=== PATIENT | male | born 1950 | race Caucasian/White ===

== ENCOUNTER 2018-12-05 12:11 | Inpatient (IN) | payer MEDICARE, OTHER ==
[2018-12-05] VITALS (8 sets, daily range): BP systolic 90–110; BP diastolic 44–62
[~2018-12-05] VITALS: Ht 185.4 cm; Wt 85.5 kg
[2018-12-05 12:44] LABS: BASOPHILS % (AUTO) 0.1 % (0-1); EOSINOPHILS % (AUTO) 0 % (0-6); HEMATOCRIT 28.2 % (42.0-52.0); HEMOGLOBIN 9.4 g/dl (14.0-17.9); LYMPHOCYTES # (AUTO) 0.4 X10'3 (1.1-4.8); LYMPHOCYTES % (AUTO) 1.6 % (21-51); MEAN CORPUSCULAR HEMOGLOBIN 31.9 PG (27.0-31.0); MEAN CORPUSCULAR HGB CONC 33.3 g/dL (33.0-36.5); MEAN CORPUSCULAR VOLUME 95.8 FL (78-98); MEAN PLATELET VOLUME 10.6 FL (7.4-10.4); MONOCYTES % (AUTO) 3.9 % (2-12); NEUTROPHILS # (AUTO) 23.4 X10'3 (1.8-7.7); NEUTROPHILS % (AUTO) 94.4 % (42-75); PLATELET COUNT 257 X10'3 (140-440); RED BLOOD COUNT 2.95 X10'6 (4.70-6.10); RED CELL DISTRIBUTION WIDTH 21.9 % (11.5-14.5); WHITE BLOOD COUNT 24.8 X10'3 (4.5-11.0)
[2018-12-05 12:55] LABS: PARTIAL THROMBOPLASTIN TIME 32 SECONDS (22-32)
[2018-12-05] MEDS ORDERED: piperacillin/tazo 3.375gm/50ml 50 ML IV ONE (12:55)
[2018-12-05] MEDS ORDERED: normal saline 1000ML IV soln IV ONE (12:55)
[2018-12-05 13:02] LABS: CLARITY,URINE SLIGHTLY CLOUDY (Clear); COLOR,URINE YELLOW (Yellow); GLUCOSE, URINE NEGATIVE (Neg); KETONES,URINE NEGATIVE (Neg); LEUKOCYTE ESTERASE ,URINE SMALL (Neg); NITRITES, URINE NEGATIVE (Neg); OCCULT BLOOD,URINE LARGE (Neg); PROTEIN,URINE NEGATIVE (Neg)
[2018-12-05 13:09] LABS: UA COLLECTION TYPE FOLEY CATH
[2018-12-05 13:15] LABS: MUCUS STRANDS NONE SEEN /LPF (Neg); SQUAMOUS EPITHELIAL CELL,UR FEW /LPF (FEW); WBC CLUMPS,URINE FEW /HPF (NEGATIVE); WBC,URINE 30-50 /HPF (0-4)
[2018-12-05 13:16] LABS: TRANSITIONAL EPI CELLS,URINE FEW /HPF
[2018-12-05 13:17] LABS: BACTERIA,URINE 1+ /HPF (Neg)
[2018-12-05 13:18] LABS: ANISOCYTOSIS 3+; PLATELET ESTIMATE NORMAL; TOTAL CELLS COUNTED 100
[2018-12-05 13:19] LABS: SCHISTOCYTES FEW
[2018-12-05 13:20] LABS: BURR CELLS FEW
[2018-12-05 13:31] LABS: ABG BASE EXCESS -2.8 mmol/L (-2.0-3.0); ABG HCO3 20.7 mmol/L (22.0-26.0); ABG OXYGEN SATURATION 90.8 % (95-98); ABG PCO2 (T) 30.8 mmHg (35.0-45.0); ABG PH (T) 7.445 (7.350-7.450); ABG PO2 (T) 66.4 mmHg (83-108); ALLEN'S TEST Positive; FCOHb 0.5 % (0.5-1.5); FLOW 2 L/min; FMetHb 0.3 % (0.3-1.12); FO2Hb 90.1 % (94-100); RESPIRATORY RATE (OBSERVED) 33 b/min; TOTAL HEMOGLOBIN 9.2 G/dl (14.0-17.9)
[2018-12-05 13:57] LABS: ALANINE AMINOTRANSFERASE 42 U/L (12-78); ALBUMIN 2.4 G/DL (3.4-5.0); ALBUMIN/GLOBULIN RATIO 0.7 (1.1-1.5); ALKALINE PHOSPHATASE 81 IU/L (46-116); ANION GAP 13 (8-16); ASPARTATE AMINO TRANSFERASE 26 U/L (10-37); BILIRUBIN,TOTAL 1.2 MG/DL (0.1-1.0); BLOOD UREA NITROGEN 97 MG/DL (7-18); BUN/CREATININE RATIO 46.6 (5.4-32.0); CALCIUM 10.5 MG/DL (8.5-10.1); CHLORIDE 115 MMOL/L (99-107); CREATININE 2.08 MG/DL (0.60-1.10); GLUCOSE 130 MG/DL (70-104); LIPASE 87 U/L (73-393); POTASSIUM 4.6 MMOL/L (3.5-5.1); SODIUM 150 MMOL/L (135-145); TOTAL CARBON DIOXIDE 21.8 MMOL/L (24-32); TOTAL PROTEIN 5.8 G/DL (6.4-8.2); eGFR 32 ML/MIN
[2018-12-05] MEDS ORDERED: MYL80T PO (14:00)
[2018-12-05] MEDS ORDERED: METO25TA6 PO (14:00)
[2018-12-05] MEDS ORDERED: FAMO20TA8 PO (14:00)
[2018-12-05] MEDS ORDERED: NICO-631 TD (14:00)
[2018-12-05] MEDS ORDERED: ASPI-611 PO (14:00)
[2018-12-05] MEDS ORDERED: LACT1CAP65 PO (14:00)
[2018-12-05] MEDS ORDERED: FURO40SO4 PO (14:00)
[2018-12-05] MEDS ORDERED: CLOP75TA35 PO (14:00)
[2018-12-05] MEDS ORDERED: ATOR40TA71 PO (14:00)
[2018-12-05] MEDS ORDERED: CHLO473M3 PO (14:00)
[2018-12-05] MEDS ORDERED: GUAI600T45 PO (14:00)
[2018-12-05] MEDS ORDERED: normal saline 1000ml 1,000 ML IV SCH (14:29)
[2018-12-05] MEDS ORDERED: magnesium 4gm in 100ml NS 100 ML IV PRN (14:30)
[2018-12-05] MEDS ORDERED: sodium phosphate inj. 15 MMOL in dextrose 5%-water 150 ML IV PRN (14:30)
[2018-12-05] MEDS ORDERED: morphine 2 MG/ML inj. syringe IV PRN (14:30)
[2018-12-05] MEDS ORDERED: ondansetron/PF 4mg/2ml inj IV PRN (14:30)
[2018-12-05] MEDS ORDERED: magnesium Cl slow-release 64mg tablet PO PRN (14:30)
[2018-12-05] MEDS ORDERED: magnesium 2GM in 50ml NS 50 ML IV PRN (14:30)
[2018-12-05] MEDS ORDERED: acetaminophen 325mg tablet PO PRN ×2 (14:30)
[2018-12-05] MEDS ORDERED: morphine 4 MG/ML inj SYRINge IV PRN (14:30)
[2018-12-05] MEDS ORDERED: Neutra Phos packet PO PRN (14:30)
[2018-12-05] MEDS ORDERED: sodium phosphate inj. 30 MMOL in dextrose 5%-water 250 ML IV PRN (14:30)
[2018-12-05] MEDS ORDERED: ipratropium/albuterol 3ml nebule NEB PRN (14:30)
[2018-12-05] MEDS ORDERED: potassium Cl 20 mEq SR tablet PO PRN ×2 (14:30)
[2018-12-05 15:17] LABS: AMYLASE 54 U/L (25-115)
--- NOTE | 2018-12-05 15:33 | NUR ---
Advanced NGT 10cm per radiology recommendation. aware.
[2018-12-05] MEDS: piperacillin/tazo 3.375gm/50ml 50 ML IV SCH (16:00)
[2018-12-05] MEDS ORDERED: linezolid 600mg/300ml PREMIX 300 ML IV ONE (17:10)
[2018-12-05] MEDS ORDERED: pneumococcal 23-VAL P-sac vacc 25 mcg/0.5ml vial IMVAC ONE (17:30)
[2018-12-05] MEDS ORDERED: FLU VACC QS2019-20 36MOS UP/PF 60 MCG/0.5 ML SYRINGE IMVAC ONE (17:35)
--- NOTE | 2018-12-05 18:35 | NUR ---
Patient in room CICU 2013. I have received report from Carmen GELLER, and had the opportunity to ask questions and assume patient care.
--- NOTE | 2018-12-05 18:36 | NUR ---
Problems reprioritized. Patient report given, questions answered & plan of care reviewed with Tray GELLER.
[2018-12-05] MEDS ORDERED: albumin (Human) 5% 250ml 250 ML IV ONE ×2 (19:45)
[2018-12-05] MEDS: heparin, porcine 5000 units/ml vial SQ SCH ×2 (20:00→20:24)
[2018-12-05] MEDS: dextrose 5%-1/2 normal saline 1,000 ML IV SCH (20:16)
[2018-12-05] MEDS: linezolid 600mg/300ml PREMIX 300 ML IV SCH (20:18)
[2018-12-05 21:17] LABS: ANION GAP 11 (8-16); BLOOD UREA NITROGEN 87 MG/DL (7-18); BUN/CREATININE RATIO 46.3 (5.4-32.0); CALCIUM 10.1 MG/DL (8.5-10.1); CHLORIDE 119 MMOL/L (99-107); CREATININE 1.88 MG/DL (0.60-1.10); GLUCOSE 126 MG/DL (70-104); MAGNESIUM 2.8 MG/DL (1.5-2.4); PHOSPHORUS 5.2 MG/DL (2.3-4.5); POTASSIUM 3.7 MMOL/L (3.5-5.1); SODIUM 153 MMOL/L (135-145); TOTAL CARBON DIOXIDE 23.2 MMOL/L (24-32); eGFR 36 ML/MIN
[2018-12-05 21:30] LABS: TROPONIN I 0.94 NG/ML (0.0-0.05)
--- NOTE | 2018-12-05 21:50 | NUR ---
CELIA Suarez notified for critical Troponin of 0.94. Troponin have been trending in 0.90's, PT is on SQ Heparin. Also made aware of output of NGT looking questionable, coffee ground and has brown/orange tinge to it and H/H is on the lower side. CELIA Suarez stated tonights dose of Heparin could be held. Will continue to monitor.
[2018-12-06] VITALS (22 sets, daily range): BP systolic 78–145; BP diastolic 39–61
[2018-12-06] MEDS: piperacillin/tazo 3.375gm/50ml 50 ML IV SCH ×3 (00:10→17:04)
[2018-12-06 02:57] LABS: BASOPHILS % (AUTO) 0.1 % (0-1); EOSINOPHILS % (AUTO) 0 % (0-6); HEMATOCRIT 23.4 % (42.0-52.0); HEMOGLOBIN 7.7 g/dl (14.0-17.9); LYMPHOCYTES # (AUTO) 0.7 X10'3 (1.1-4.8); LYMPHOCYTES % (AUTO) 3.2 % (21-51); MEAN CORPUSCULAR HGB CONC 32.9 g/dL (33.0-36.5); MEAN CORPUSCULAR VOLUME 97.4 FL (78-98); MEAN PLATELET VOLUME 11.6 FL (7.4-10.4); MONOCYTES # (AUTO) 0.7 X10'3 (0-0.9); MONOCYTES % (AUTO) 3.3 % (2-12); NEUTROPHILS # (AUTO) 20.8 X10'3 (1.8-7.7); NEUTROPHILS % (AUTO) 93.4 % (42-75); PLATELET COUNT 184 X10'3 (140-440); RED BLOOD COUNT 2.41 X10'6 (4.70-6.10); RED CELL DISTRIBUTION WIDTH 23.6 % (11.5-14.5); WHITE BLOOD COUNT 22.3 X10'3 (4.5-11.0)
[2018-12-06 03:23] LABS: ALANINE AMINOTRANSFERASE 37 U/L (12-78); ALBUMIN 2.3 G/DL (3.4-5.0); ALBUMIN/GLOBULIN RATIO 0.8 (1.1-1.5); ALKALINE PHOSPHATASE 62 IU/L (46-116); ANION GAP 9 (8-16); ASPARTATE AMINO TRANSFERASE 24 U/L (10-37); BLOOD UREA NITROGEN 81 MG/DL (7-18); BUN/CREATININE RATIO 50.9 (5.4-32.0); CALCIUM 10.1 MG/DL (8.5-10.1); CHLORIDE 121 MMOL/L (99-107); CREATININE 1.59 MG/DL (0.60-1.10); GLUCOSE 115 MG/DL (70-104); MAGNESIUM 2.9 MG/DL (1.5-2.4); PHOSPHORUS 4.8 MG/DL (2.3-4.5); POTASSIUM 3.4 MMOL/L (3.5-5.1); SODIUM 153 MMOL/L (135-145); TOTAL CARBON DIOXIDE 23.5 MMOL/L (24-32); TOTAL PROTEIN 5.1 G/DL (6.4-8.2); eGFR 43 ML/MIN
[2018-12-06 03:24] LABS: ANISOCYTOSIS 3+; HYPOCHROMASIA 1+; PLATELET ESTIMATE NORMAL; SCHISTOCYTES FEW
[2018-12-06 03:26] LABS: TROPONIN I 0.74 NG/ML (0.0-0.05)
--- NOTE | 2018-12-06 03:33 | NUR ---
COLD ROLL INSPECTOR Erick notified for critical Troponin, has trended down from 0.94 to 0.74. Also made him aware of significant drop in H&H. No new orders received at this time. Will continue to monitor.
[2018-12-06] MEDS: potassium Cl 20mEq/100mL bag 100 ML IV PRN ×2 (04:33→05:46)
--- NOTE | 2018-12-06 06:15 | NUR ---
Patient in room CICU 2012. I have received report from shift mgr and had the opportunity to ask questions and assume patient care.
--- NOTE | 2018-12-06 06:25 | NUR ---
Problems reprioritized. Patient report given, questions answered & plan of care reviewed with Carmen GELLER.
[2018-12-06] MEDS: heparin, porcine 5000 units/ml vial SQ SCH (08:00)
[2018-12-06] MEDS ORDERED: NORepinephrine 8mg/ 250ml NS 250 ML IV ONE (08:08)
[2018-12-06] MEDS: linezolid 600mg/300ml PREMIX 300 ML IV SCH ×2 (08:43→19:48)
[2018-12-06] MEDS: pantoprazole 40 MG vial IV SCH (08:43)
[2018-12-06] MEDS: dextrose 5%-1/2 normal saline 1,000 ML IV SCH (09:05)
[2018-12-06 09:26] LABS: ABG BASE EXCESS -5.2 mmol/L (-2.0-3.0); ABG HCO3 19.5 mmol/L (22.0-26.0); ABG OXYGEN SATURATION 93.6 % (95-98); ABG PCO2 (T) 33.8 mmHg (35.0-45.0); ABG PH (T) 7.376 (7.350-7.450); ABG PO2 (T) 73.5 mmHg (83-108); ALLEN'S TEST Positive; FCOHb 0.3 % (0.5-1.5); FLOW 3 L/min; FMetHb 0.3 % (0.3-1.12); PATIENT TEMPERATURE 36.3; RESPIRATORY RATE (OBSERVED) 31 b/min; TOTAL HEMOGLOBIN 9.4 G/dl (14.0-17.9)
[2018-12-06] MEDS ORDERED: albumin (Human) 5% 250ml 250 ML IV ONE ×8 (10:49→19:25)
[2018-12-06] MEDS ORDERED: normal saline 1000ml 1,000 ML IV ONE (10:55)
[2018-12-06] MEDS: NORepinephrine 8mg/ 250ml NS 250 ML IV SCH ×2 (10:58→14:51)
--- NOTE | 2018-12-06 13:44 | NUR ---
Initial: Pt admit w/ severe sepsis, PNA possibly from aspiration, and SBO r/t obstipation/chronic constipation. Abdomen quite distended but soft at this time per MD pending abdominal pressure test to determine further severity. CT shows dilated small bowel, moderate to large amount of stool in colon w/ dilation of small bowel to level of terminal ileum. Pending GI input per MD regarding neostigmine vs colonoscopy for decompression. Pt to receive ALB and fluid bolus for rehydration needs at this time per MD. Na 153 receiving D5/half NS. Started on zyvox; not appropriate for ed at this time. Will monitor for additional GI results. R NG 200ml output over 12 hours. IF 7 days or greater NPO may require PN to meet needs; pt does have PICC at this time. IF obstipation resolves will monitor for PO diet advancement and additional protein needs at that time. Rec: 1. monitor for GI results and obstipation relief 2. IF SBO and NPO 7 days or greater anticipated; consider PN to meet needs 3. bowel care pending GI approval given perforation risk per MD 4. weekly wts Addendum: 12/06/18 at [address] Amended: Links added.
[2018-12-06] MEDS ORDERED: diatrozoate meglu/diatrozoate sod (37% iodine) 120ML oral solution PO ONE ×3 (16:45→18:30)
[2018-12-06] MEDS: diatr meglu/diatrizoate 30ml oral sol.-(3 dose) bottle PO SCH ×3 (17:01→18:32)
--- NOTE | 2018-12-06 19:00 | NUR ---
RN Note -MD Communication Dr. Renteria at bedside examining pt. Phone call made to family for telephone consent for surgery.
[2018-12-06 19:06] LABS: ABG BASE EXCESS -4.7 mmol/L (-2.0-3.0); ABG HCO3 21.3 mmol/L (22.0-26.0); ABG OXYGEN SATURATION 91.2 % (95-98); ABG PCO2 (T) 43.8 mmHg (35.0-45.0); ABG PH (T) 7.305 (7.350-7.450); ABG PO2 (T) 71.3 mmHg (83-108); ALLEN'S TEST Positive; FCOHb 0.3 % (0.5-1.5); FLOW 3 L/min; FMetHb 0.4 % (0.3-1.12); FO2Hb 90.6 % (94-100); PATIENT TEMPERATURE 37.2; RESPIRATORY RATE (OBSERVED) 24 b/min; TOTAL HEMOGLOBIN 8.6 G/dl (14.0-17.9)
[2018-12-06] MEDS: NORMAL SALINE IV SCH (19:25)
[2018-12-06] MEDS: VASOPRESSIN IV SCH (19:25)
[2018-12-06 19:37] LABS: BASOPHILS % (AUTO) 0.2 % (0-1); EOSINOPHILS % (AUTO) 0 % (0-6); HEMATOCRIT 23.5 % (42.0-52.0); HEMOGLOBIN 7.6 g/dl (14.0-17.9); LYMPHOCYTES # (AUTO) 0.4 X10'3 (1.1-4.8); LYMPHOCYTES % (AUTO) 2.4 % (21-51); MEAN CORPUSCULAR HEMOGLOBIN 32.5 PG (27.0-31.0); MEAN CORPUSCULAR HGB CONC 32.5 g/dL (33.0-36.5); MEAN CORPUSCULAR VOLUME 99.9 FL (78-98); MEAN PLATELET VOLUME 11.5 FL (7.4-10.4); MONOCYTES # (AUTO) 0.4 X10'3 (0-0.9); MONOCYTES % (AUTO) 2.2 % (2-12); NEUTROPHILS # (AUTO) 16.8 X10'3 (1.8-7.7); NEUTROPHILS % (AUTO) 95.2 % (42-75); PLATELET COUNT 143 X10'3 (140-440); RED BLOOD COUNT 2.35 X10'6 (4.70-6.10); RED CELL DISTRIBUTION WIDTH 23.5 % (11.5-14.5); WHITE BLOOD COUNT 17.6 X10'3 (4.5-11.0)
[2018-12-06] MEDS ORDERED: midazolam 2 mg/2 ml injection ONE (19:46)
[2018-12-06 19:47] LABS: PARTIAL THROMBOPLASTIN TIME 33 SECONDS (22-32)
[2018-12-06] MEDS ORDERED: rocuronium 10mg/ml inj IV ONE (19:47)
[2018-12-06] MEDS ORDERED: etomidate 2mg/ml inj. ONE (19:47)
[2018-12-06] MEDS ORDERED: fentaNYL /PF 50mcg/ml 5ml ampule ONE (19:47)
[2018-12-06] MEDS ORDERED: NORepinephrine bitartrate 8 MG in NS 250 ML BAG (32 mcg/ml) IV ONE (19:50)
[2018-12-06] MEDS ORDERED: desflurane 240ml liquid inh. IH ONE (19:50)
[2018-12-06 19:57] LABS: ALANINE AMINOTRANSFERASE 38 U/L (12-78); ALBUMIN 2.2 G/DL (3.4-5.0); ALBUMIN/GLOBULIN RATIO 0.8 (1.1-1.5); ALKALINE PHOSPHATASE 70 IU/L (46-116); ANION GAP 12 (8-16); ASPARTATE AMINO TRANSFERASE 32 U/L (10-37); BILIRUBIN,TOTAL 1.2 MG/DL (0.1-1.0); BLOOD UREA NITROGEN 84 MG/DL (7-18); BUN/CREATININE RATIO 45.2 (5.4-32.0); C-REACTIVE PROTEIN 17.72 MG/DL (0.0-0.5); CALCIUM 10.1 MG/DL (8.5-10.1); CHLORIDE 121 MMOL/L (99-107); CREATININE 1.86 MG/DL (0.60-1.10); GLUCOSE 131 MG/DL (70-104); POTASSIUM 4.1 MMOL/L (3.5-5.1); TOTAL PROTEIN 5.1 G/DL (6.4-8.2); eGFR 36 ML/MIN
[2018-12-06 20:02] LABS: SODIUM 156 MMOL/L (135-145)
[2018-12-06 20:03] LABS: TROPONIN I 0.97 NG/ML (0.0-0.05)
--- NOTE | 2018-12-06 20:11 | NUR ---
RN Note -Pt going OR, report given
[2018-12-06 20:49] LABS: PLATELET ESTIMATE NORMAL
[2018-12-06 20:50] LABS: ANISOCYTOSIS 3+; SCHISTOCYTES FEW
[2018-12-06] MEDS ORDERED: ringers solution, lacted 1,000 ML IV SCH (21:52)
[2018-12-06 21:55] LABS: ABG BASE EXCESS -5.8 mmol/L (-2.0-3.0); ABG HCO3 18.8 mmol/L (22.0-26.0); ABG OXYGEN SATURATION 93.8 % (95-98); ABG PCO2 (T) 33.3 mmHg (35.0-45.0); ABG PO2 (T) 72.8 mmHg (83-108); FMetHb 0.3 % (0.3-1.12); FO2Hb 93.5 % (94-100); TOTAL HEMOGLOBIN 8.6 G/dl (14.0-17.9)
[2018-12-06] MEDS ORDERED: ondansetron/PF 4mg/2ml inj IV PRN (21:55)
[2018-12-06] MEDS ORDERED: morphine 4 MG/ML inj SYRINge IV PRN ×2 (21:55)
[2018-12-06] MEDS ORDERED: midazolam 100mg in NS 100ml 100 ML IV PRN (22:05)
[2018-12-06] MEDS ORDERED: FENTANYL-0.9 % NACL/PF 100 ML IV PRN (22:05)
[2018-12-06] MEDS ORDERED: pancuronium br 1mg/ml inj IV ONE (22:15)
--- NOTE | 2018-12-06 22:22 | NUR ---
RN Note -Pt arrived from OR. Dr. Renteria and Dr. Ordonez at bedside. Orders received.
[2018-12-06 22:46] LABS: ISTAT CREATININE 1.9 mg/dL (0.8-1.3); ISTAT HGB 7.1 g/dl (14.0-18.0); ISTAT IONIZED CALCIUM 1.41 mmol/L (1.03-1.32); ISTAT K 3.9 mmol/L (3.5-5.1); POC BUN/CREATININE RATIO 42.1 (5.4-32.0)
[2018-12-07] VITALS (24 sets, daily range): BP systolic 96–137; BP diastolic 32–52
[2018-12-07] MEDS: piperacillin/tazo 3.375gm/50ml 50 ML IV SCH ×3 (00:18→15:18)
[2018-12-07] MEDS: linezolid 600mg/300ml PREMIX 300 ML IV SCH ×2 (00:19→20:53)
[2018-12-07 01:52] LABS: BASOPHILS % (AUTO) 0.2 % (0-1); EOSINOPHILS % (AUTO) 0.3 % (0-6); HEMATOCRIT 30.6 % (42.0-52.0); HEMOGLOBIN 10.4 g/dl (14.0-17.9); LYMPHOCYTES # (AUTO) 0.6 X10'3 (1.1-4.8); LYMPHOCYTES % (AUTO) 5.6 % (21-51); MEAN CORPUSCULAR HGB CONC 34.1 g/dL (33.0-36.5); MEAN CORPUSCULAR VOLUME 90.8 FL (78-98); MEAN PLATELET VOLUME 10.6 FL (7.4-10.4); MONOCYTES # (AUTO) 0.2 X10'3 (0-0.9); MONOCYTES % (AUTO) 1.8 % (2-12); NEUTROPHILS # (AUTO) 10.3 X10'3 (1.8-7.7); NEUTROPHILS % (AUTO) 92.1 % (42-75); PLATELET COUNT 87 X10'3 (140-440); RED BLOOD COUNT 3.37 X10'6 (4.70-6.10); WHITE BLOOD COUNT 11.2 X10'3 (4.5-11.0)
[2018-12-07 02:01] LABS: PARTIAL THROMBOPLASTIN TIME 41 SECONDS (22-32)
[2018-12-07 02:04] LABS: ALANINE AMINOTRANSFERASE 31 U/L (12-78); ALBUMIN 2.4 G/DL (3.4-5.0); ALBUMIN/GLOBULIN RATIO 1.1 (1.1-1.5); ALKALINE PHOSPHATASE 52 IU/L (46-116); ANION GAP 7 (8-16); ASPARTATE AMINO TRANSFERASE 25 U/L (10-37); BILIRUBIN,TOTAL 1.6 MG/DL (0.1-1.0); BLOOD UREA NITROGEN 72 MG/DL (7-18); BUN/CREATININE RATIO 42.9 (5.4-32.0); CALCIUM 9.5 MG/DL (8.5-10.1); CHLORIDE 122 MMOL/L (99-107); CREATININE 1.68 MG/DL (0.60-1.10); GLUCOSE 165 MG/DL (70-104); MAGNESIUM 2.5 MG/DL (1.5-2.4); PHOSPHORUS 4.3 MG/DL (2.3-4.5); POTASSIUM 3.2 MMOL/L (3.5-5.1); SODIUM 152 MMOL/L (135-145); TOTAL CARBON DIOXIDE 22.7 MMOL/L (24-32); TOTAL PROTEIN 4.6 G/DL (6.4-8.2); eGFR 41 ML/MIN
[2018-12-07] MEDS: ipratropium/albuterol 3ml nebule NEB SCH ×6 (03:11→23:10)
[2018-12-07 03:26] LABS: ABG BASE EXCESS -4.6 mmol/L (-2.0-3.0); ABG HCO3 20.1 mmol/L (22.0-26.0); ABG OXYGEN SATURATION 98.4 % (95-98); ABG PCO2 (T) 36.3 mmHg (35.0-45.0); ABG PH (T) 7.363 (7.350-7.450); ABG PO2 (T) 178.4 mmHg (83-108); FCOHb 0.3 % (0.5-1.5); FMetHb 0.4 % (0.3-1.12); FO2Hb 97.7 % (94-100); MINUTE VOLUME 9 L/min; PATIENT TEMPERATURE 37.3; PEEP 5 cm H2O; RESPIRATORY RATE 14 b/min; RESPIRATORY RATE (OBSERVED) 14 b/min; TIDAL VOLUME 550 mL; TOTAL HEMOGLOBIN 10.9 G/dl (14.0-17.9)
[2018-12-07] MEDS: dextrose 5%-1/2 normal saline 1,000 ML IV SCH ×2 (04:05→11:45)
[2018-12-07] MEDS: potassium Cl 20mEq/100mL bag 100 ML IV PRN ×2 (04:05→05:40)
--- NOTE | 2018-12-07 07:51 | NUR ---
I have reviewed and agree with all medications administered and interventions performed by [facility] Student Shellidiana Evans Addendum: 12/07/18 at [address]751 [address] Amended: Links added.
[2018-12-07] MEDS: pantoprazole 40 MG vial IV SCH (09:00)
--- NOTE | 2018-12-07 10:56 | NUR ---
Called IR for the second time today; no answer. Called and paged about an hour ago as well.
--- NOTE | 2018-12-07 12:23 | NUR ---
F/U: Pt was found to have gangrenous cholecystitis yesterday at OR; resulting in open nick. Pt is going back to OR today for relook and closure. Pt is septic. Pt is intubated on Levophed 7mcg. Per MD replaced Mg and Phos. LBM 12/06. Pt with increase protein need due to Dx; however, will continue NPO until medically able to resume po diet; if NPO 7 days or more, would benefit from PN, pt already has a PICC. Pt documented as obtunded and A/O x1. Will continue to monitor. Rec: 1. Continue NPO until medically able to resume po diet.IF NPO 7 days or greater anticipated; consider PN or EN to meet needs if cleared by MD 2. Bowel care pending GI approval given perforation risk per MD 3. Weekly wts Addendum: 12/07/18 at [address] Amended: Links added. Addendum: 12/07/18 at [address] I have reviewed and agree with note by Bilingual Legal Assistant. Ade Langford RD
[2018-12-07 13:08] LABS: POTASSIUM 3.6 MMOL/L (3.5-5.1); TROPONIN I 0.57 NG/ML (0.0-0.05)
--- NOTE | 2018-12-07 14:10 | NUR ---
K was rechecked and lab accidentally ran a sodium as well. The result was critical at 157 and thus reported it to me. I notified Dr Pineda; orders received.
[2018-12-07] MEDS ORDERED: bisacodyl 10mg suppository rectal RC PRN (14:30)
[2018-12-07] MEDS: dextrose 5%-water 1,000 ML IV SCH (14:41)
[2018-12-07] MEDS ORDERED: potassium Cl 20 mEq/100mL bag IV ONE (14:55)
[2018-12-07] MEDS ORDERED: potassium Cl 20mEq/100mL bag 100 ML IV ONE ×2 (15:15)
[2018-12-07 17:00] LABS: BASOPHILS % (AUTO) 0.1 % (0-1); EOSINOPHILS # (AUTO) 0.1 X10'3 (0-0.9); EOSINOPHILS % (AUTO) 1.1 % (0-6); HEMATOCRIT 29.5 % (42.0-52.0); HEMOGLOBIN 10.1 g/dl (14.0-17.9); LYMPHOCYTES # (AUTO) 0.4 X10'3 (1.1-4.8); LYMPHOCYTES % (AUTO) 4.3 % (21-51); MEAN CORPUSCULAR HEMOGLOBIN 31.1 PG (27.0-31.0); MEAN CORPUSCULAR HGB CONC 34.3 g/dL (33.0-36.5); MEAN CORPUSCULAR VOLUME 90.6 FL (78-98); MEAN PLATELET VOLUME 10.7 FL (7.4-10.4); MONOCYTES # (AUTO) 0.3 X10'3 (0-0.9); MONOCYTES % (AUTO) 2.7 % (2-12); NEUTROPHILS # (AUTO) 9.6 X10'3 (1.8-7.7); NEUTROPHILS % (AUTO) 91.8 % (42-75); PLATELET COUNT 71 X10'3 (140-440); RED BLOOD COUNT 3.25 X10'6 (4.70-6.10); RED CELL DISTRIBUTION WIDTH 18.9 % (11.5-14.5); WHITE BLOOD COUNT 10.5 X10'3 (4.5-11.0)
[2018-12-07 17:20] LABS: ANISOCYTOSIS 2+; BURR CELLS 1+; PLATELET ESTIMATE DECREASED; POIKILOCYTOSIS FEW
--- NOTE | 2018-12-07 18:37 | NUR ---
Problems reprioritized. Patient report given, questions answered & plan of care reviewed with Mac RN.
[2018-12-08] VITALS (23 sets, daily range): BP systolic 101–145; BP diastolic 39–137
[2018-12-08] MEDS: piperacillin/tazo 3.375gm/50ml 50 ML IV SCH ×3 (00:42→16:47)
[2018-12-08] MEDS: mineral oil/petrolatum ophthal oint EACHEYE SCH ×4 (02:00→20:07)
[2018-12-08] MEDS: ipratropium/albuterol 3ml nebule NEB SCH ×6 (03:02→23:24)
[2018-12-08 03:15] LABS: ABG BASE EXCESS -3.4 mmol/L (-2.0-3.0); ABG HCO3 20.1 mmol/L (22.0-26.0); ABG OXYGEN SATURATION 97.9 % (95-98); ABG PCO2 (T) 31.6 mmHg (35.0-45.0); ABG PH (T) 7.425 (7.350-7.450); ABG PO2 (T) 125.8 mmHg (83-108); FCOHb 0.3 % (0.5-1.5); FMetHb 0.2 % (0.3-1.12); FO2Hb 97.4 % (94-100); MINUTE VOLUME 11 L/min; PATIENT TEMPERATURE 37.5; PEEP 5 cm H2O; RESPIRATORY RATE 14 b/min; RESPIRATORY RATE (OBSERVED) 17 b/min; TIDAL VOLUME 500 mL; TOTAL HEMOGLOBIN 10.5 G/dl (14.0-17.9)
[2018-12-08 03:29] LABS: BASOPHILS % (AUTO) 0.3 % (0-1); EOSINOPHILS # (AUTO) 0.1 X10'3 (0-0.9); EOSINOPHILS % (AUTO) 1.7 % (0-6); HEMATOCRIT 28.3 % (42.0-52.0); HEMOGLOBIN 9.6 g/dl (14.0-17.9); LYMPHOCYTES # (AUTO) 0.5 X10'3 (1.1-4.8); LYMPHOCYTES % (AUTO) 5.6 % (21-51); MEAN CORPUSCULAR HEMOGLOBIN 31.3 PG (27.0-31.0); MEAN CORPUSCULAR HGB CONC 34.1 g/dL (33.0-36.5); MEAN CORPUSCULAR VOLUME 91.9 FL (78-98); MEAN PLATELET VOLUME 10.9 FL (7.4-10.4); MONOCYTES # (AUTO) 0.2 X10'3 (0-0.9); MONOCYTES % (AUTO) 2.6 % (2-12); NEUTROPHILS # (AUTO) 7.8 X10'3 (1.8-7.7); NEUTROPHILS % (AUTO) 89.8 % (42-75); PLATELET COUNT 63 X10'3 (140-440); RED BLOOD COUNT 3.08 X10'6 (4.70-6.10); RED CELL DISTRIBUTION WIDTH 19.2 % (11.5-14.5); WHITE BLOOD COUNT 8.7 X10'3 (4.5-11.0)
[2018-12-08 03:38] LABS: ALANINE AMINOTRANSFERASE 28 U/L (12-78); ALBUMIN 1.8 G/DL (3.4-5.0); ALBUMIN/GLOBULIN RATIO 0.6 (1.1-1.5); ALKALINE PHOSPHATASE 53 IU/L (46-116); ANION GAP 8 (8-16); ASPARTATE AMINO TRANSFERASE 15 U/L (10-37); BLOOD UREA NITROGEN 53 MG/DL (7-18); BUN/CREATININE RATIO 37.1 (5.4-32.0); CALCIUM 9.5 MG/DL (8.5-10.1); CHLORIDE 122 MMOL/L (99-107); CREATININE 1.43 MG/DL (0.60-1.10); GLUCOSE 147 MG/DL (70-104); MAGNESIUM 2.6 MG/DL (1.5-2.4); PHOSPHORUS 2.9 MG/DL (2.3-4.5); POTASSIUM 3.7 MMOL/L (3.5-5.1); SODIUM 152 MMOL/L (135-145); TOTAL PROTEIN 4.6 G/DL (6.4-8.2); eGFR 49 ML/MIN
[2018-12-08] MEDS: NORMAL SALINE IV SCH (04:45)
[2018-12-08] MEDS: VASOPRESSIN IV SCH (04:45)
[2018-12-08] MEDS: NORepinephrine 8mg/ 250ml NS 250 ML IV SCH (05:51)
[2018-12-08] MEDS: dextrose 5%-water 1,000 ML IV SCH ×3 (05:52→16:43)
--- NOTE | 2018-12-08 06:00 | NUR ---
RN Note -Shift Summary Pt has been resting throughout the night, arouses easily, answers questions appropriately, REINOSO.
[2018-12-08] MEDS ORDERED: gentamicin 40 MG/1 ML inj ONE (06:37)
[2018-12-08] MEDS ORDERED: clindamycin phosphate 150mg/ml inj. ONE (06:37)
[2018-12-08] MEDS: linezolid 600mg/300ml PREMIX 300 ML IV SCH ×2 (07:17→20:07)
[2018-12-08] MEDS: pantoprazole 40 MG vial IV SCH (07:17)
[2018-12-08] MEDS ORDERED: fentaNYL/PF 50MCG/1 ML 2ML syringe ONE (08:27)
[2018-12-08] MEDS ORDERED: midazolam 2 mg/2 ml injection ONE (08:27)
--- NOTE | 2018-12-08 19:00 | NUR ---
Patient in room CICU 2013. I have received report from Kurtis Hernadez RN and had the opportunity to ask questions and assume patient care.
[2018-12-09] VITALS (24 sets, daily range): BP systolic 109–146; BP diastolic 38–59
[2018-12-09] MEDS: piperacillin/tazo 3.375gm/50ml 50 ML IV SCH ×3 (00:03→16:22)
[2018-12-09] MEDS: mineral oil/petrolatum ophthal oint EACHEYE SCH ×2 (02:00→08:19)
[2018-12-09 03:08] LABS: BASOPHILS % (AUTO) 0.2 % (0-1); EOSINOPHILS # (AUTO) 0.4 X10'3 (0-0.9); HEMATOCRIT 27.9 % (42.0-52.0); HEMOGLOBIN 9.4 g/dl (14.0-17.9); LYMPHOCYTES # (AUTO) 0.5 X10'3 (1.1-4.8); LYMPHOCYTES % (AUTO) 9.6 % (21-51); MEAN CORPUSCULAR HEMOGLOBIN 31.2 PG (27.0-31.0); MEAN CORPUSCULAR HGB CONC 33.8 g/dL (33.0-36.5); MEAN CORPUSCULAR VOLUME 92.2 FL (78-98); MEAN PLATELET VOLUME 10.8 FL (7.4-10.4); MONOCYTES # (AUTO) 0.1 X10'3 (0-0.9); MONOCYTES % (AUTO) 2.8 % (2-12); NEUTROPHILS # (AUTO) 4.1 X10'3 (1.8-7.7); NEUTROPHILS % (AUTO) 80.4 % (42-75); PLATELET COUNT 57 X10'3 (140-440); RED BLOOD COUNT 3.03 X10'6 (4.70-6.10); RED CELL DISTRIBUTION WIDTH 20.4 % (11.5-14.5); WHITE BLOOD COUNT 5.2 X10'3 (4.5-11.0)
[2018-12-09] MEDS: ipratropium/albuterol 3ml nebule NEB SCH ×6 (03:28→23:29)
[2018-12-09 03:33] LABS: ALANINE AMINOTRANSFERASE 28 U/L (12-78); ALBUMIN 1.5 G/DL (3.4-5.0); ALBUMIN/GLOBULIN RATIO 0.5 (1.1-1.5); ALKALINE PHOSPHATASE 56 IU/L (46-116); ANION GAP 10 (8-16); ASPARTATE AMINO TRANSFERASE 16 U/L (10-37); BILIRUBIN,TOTAL 0.9 MG/DL (0.1-1.0); BLOOD UREA NITROGEN 41 MG/DL (7-18); BUN/CREATININE RATIO 36.3 (5.4-32.0); CALCIUM 9.1 MG/DL (8.5-10.1); CHLORIDE 117 MMOL/L (99-107); CREATININE 1.13 MG/DL (0.60-1.10); GLUCOSE 123 MG/DL (70-104); MAGNESIUM 2.2 MG/DL (1.5-2.4); PHOSPHORUS 2.3 MG/DL (2.3-4.5); POTASSIUM 3.4 MMOL/L (3.5-5.1); SODIUM 148 MMOL/L (135-145); TOTAL CARBON DIOXIDE 21.3 MMOL/L (24-32); TOTAL PROTEIN 4.4 G/DL (6.4-8.2); eGFR 64 ML/MIN
[2018-12-09 03:46] LABS: ABG BASE EXCESS -3.2 mmol/L (-2.0-3.0); ABG HCO3 20.5 mmol/L (22.0-26.0); ABG OXYGEN SATURATION 96.5 % (95-98); ABG PCO2 (T) 32.2 mmHg (35.0-45.0); ABG PH (T) 7.422 (7.350-7.450); ABG PO2 (T) 91.4 mmHg (83-108); FCOHb 0.3 % (0.5-1.5); FMetHb 0.1 % (0.3-1.12); FO2Hb 96.1 % (94-100); MINUTE VOLUME 9 L/min; PATIENT TEMPERATURE 36.9; PEEP 5 cm H2O; RESPIRATORY RATE 14 b/min; RESPIRATORY RATE (OBSERVED) 18 b/min; TIDAL VOLUME 550 mL; TOTAL HEMOGLOBIN 10.6 G/dl (14.0-17.9)
[2018-12-09 03:59] LABS: ANISOCYTOSIS 3+; BURR CELLS FEW; ELLIPTOCYTES FEW; PLATELET ESTIMATE DECREASED; POLYCHROMASIA FEW; TARGET CELLS FEW
[2018-12-09] MEDS: dextrose 5%-water 1,000 ML IV SCH ×2 (06:10→16:23)
--- NOTE | 2018-12-09 06:30 | NUR ---
Patient in room CICU 2013. I have received report from JOEL GELLER and had the opportunity to ask questions and assume patient care.
[2018-12-09] MEDS: pantoprazole 40 MG vial IV SCH (08:19)
[2018-12-09] MEDS: linezolid 600mg/300ml PREMIX 300 ML IV SCH ×2 (08:19→19:38)
[2018-12-09] MEDS: potassium Cl 20mEq/100mL bag 100 ML IV PRN (08:19)
--- NOTE | 2018-12-09 11:27 | NUR ---
Arjun trigger: Arjun 12 w/ open cholecystectomy surgical site, and bilateral foot +2 pitting edema present. Will monitor for nutrition support needs if prolonged intubation post-op or IF remains NPO further. Addendum: 12/09/18 at [address] Amended: Links added.
[2018-12-09] MEDS: NORMAL SALINE IV SCH (11:31)
[2018-12-09] MEDS: VASOPRESSIN IV SCH (11:31)
--- NOTE | 2018-12-09 11:33 | NUR ---
pt tolerating SBT well and passed weaning. awakens easily but sleepy. fentanyl turned off. Noc RN did not scan 20meq KCL bag but note that pt did receive 40meq for level 3.4
--- NOTE | 2018-12-09 11:44 | NUR ---
Nando andujar, states pt can be extubated. sent page to RT
[2018-12-09] MEDS: HYDROmorphone/NS 1 mg/ml CADD 50 ML IV SCH ×6 (14:29→23:00)
--- NOTE | 2018-12-09 14:33 | NUR ---
pt extubated to 3L NC at 1225 without incident. pt saturation has been 100%. pt RR 26-28. he does not have the strongest cough and appears fatigued however alert and oriented. CADD pump set up and education given to patient for use as needed
--- NOTE | 2018-12-09 16:21 | NUR ---
pt had a medium sized bowel movement, brown with some red blood. NG is putting out dark brown, dark green. VS remain trending as they have been. labs sent, pending results. notified Dexter, who instructed me to notify independent jeweler. notified Nando CHU, said to call him when labs results. Addendum: 12/09/18 at 1648 by Alisa Guerrero RN pt H/H has not dropped. will cont to monitor
[2018-12-09 16:34] LABS: HEMATOCRIT 29.3 % (42.0-52.0); HEMOGLOBIN 9.8 g/dl (14.0-17.9); MEAN CORPUSCULAR HEMOGLOBIN 31.5 PG (27.0-31.0); MEAN CORPUSCULAR HGB CONC 33.5 g/dL (33.0-36.5); MEAN PLATELET VOLUME 10.5 FL (7.4-10.4); PLATELET COUNT 60 X10'3 (140-440); RED BLOOD COUNT 3.12 X10'6 (4.70-6.10); RED CELL DISTRIBUTION WIDTH 21.2 % (11.5-14.5); WHITE BLOOD COUNT 4.3 X10'3 (4.5-11.0)
[2018-12-09 16:50] LABS: PARTIAL THROMBOPLASTIN TIME 38 SECONDS (22-32)
--- NOTE | 2018-12-09 18:20 | NUR ---
Patient in room CICU 2012. I have received report from YIMI Galvin and had the opportunity to ask questions and assume patient care. Patient extubated today, he is laying in bed resting comfortably. He reports no pain at this time, I will continue to monitor.
--- NOTE | 2018-12-09 18:23 | NUR ---
Problems reprioritized. Patient report given, questions answered & plan of care reviewed with MOY GELLER.
[2018-12-09] MEDS: heparin, porcine 5000 units/ml vial SQ SCH (19:36)
[2018-12-10] VITALS (35 sets, daily range): BP systolic 83–118; BP diastolic 38–74
[2018-12-10] MEDS: dextrose 5%-water 1,000 ML IV SCH (00:46)
[2018-12-10] MEDS: piperacillin/tazo 3.375gm/50ml 50 ML IV SCH ×4 (00:49→23:31)
[2018-12-10] MEDS: HYDROmorphone/NS 1 mg/ml CADD 50 ML IV SCH ×12 (01:00→23:00)
[2018-12-10 03:09] LABS: BASOPHILS % (AUTO) 0.4 % (0-1); EOSINOPHILS # (AUTO) 0.3 X10'3 (0-0.9); EOSINOPHILS % (AUTO) 9.6 % (0-6); HEMATOCRIT 28.3 % (42.0-52.0); HEMOGLOBIN 9.4 g/dl (14.0-17.9); LYMPHOCYTES # (AUTO) 0.4 X10'3 (1.1-4.8); LYMPHOCYTES % (AUTO) 12.7 % (21-51); MEAN CORPUSCULAR HEMOGLOBIN 31.5 PG (27.0-31.0); MEAN CORPUSCULAR VOLUME 95.5 FL (78-98); MONOCYTES # (AUTO) 0.1 X10'3 (0-0.9); MONOCYTES % (AUTO) 4.4 % (2-12); NEUTROPHILS % (AUTO) 72.9 % (42-75); PLATELET COUNT 56 X10'3 (140-440); RED BLOOD COUNT 2.97 X10'6 (4.70-6.10); WHITE BLOOD COUNT 2.8 X10'3 (4.5-11.0)
[2018-12-10 03:27] LABS: ALANINE AMINOTRANSFERASE 29 U/L (12-78); ALBUMIN 1.5 G/DL (3.4-5.0); ALBUMIN/GLOBULIN RATIO 0.5 (1.1-1.5); ALKALINE PHOSPHATASE 73 IU/L (46-116); ANION GAP 5 (8-16); ASPARTATE AMINO TRANSFERASE 15 U/L (10-37); BILIRUBIN,TOTAL 0.8 MG/DL (0.1-1.0); BLOOD UREA NITROGEN 29 MG/DL (7-18); BUN/CREATININE RATIO 29.3 (5.4-32.0); CALCIUM 9.2 MG/DL (8.5-10.1); CHLORIDE 114 MMOL/L (99-107); CREATININE 0.99 MG/DL (0.60-1.10); GLUCOSE 106 MG/DL (70-104); PHOSPHORUS 2.2 MG/DL (2.3-4.5); POTASSIUM 3.9 MMOL/L (3.5-5.1); SODIUM 143 MMOL/L (135-145); TOTAL CARBON DIOXIDE 24.3 MMOL/L (24-32); TOTAL PROTEIN 4.7 G/DL (6.4-8.2); eGFR 75 ML/MIN
[2018-12-10] MEDS: ipratropium/albuterol 3ml nebule NEB SCH ×6 (03:47→23:23)
[2018-12-10 04:20] LABS: TOTAL CELLS COUNTED 100
[2018-12-10 04:21] LABS: ANISOCYTOSIS 3+; PLATELET ESTIMATE DECREASED
[2018-12-10 04:22] LABS: BURR CELLS 1+; LARGE PLATELETS FEW; SCHISTOCYTES 1+; TOXIC VACUOLATION 2+
[2018-12-10 04:23] LABS: ELLIPTOCYTES 1+
--- NOTE | 2018-12-10 05:26 | NUR ---
Patient advised he had a BM, upon cleaning patient he was found to have large bloody, clot filled BM. RADHA Cortez was present on the unit and was called to the bedside. She called both Dr. Valentine and Dr. Renteria, coagulation study was order and one unit of PRBC ordered as well. RADHA Cortez also ordered a nuc med blood loss scan per Dr. Valentine. Patient has a drop in BP 99/56 and was diaphoretic. I will continue to monitor.
[2018-12-10 05:28] LABS: BASOPHILS % (AUTO) 0.2 % (0-1); EOSINOPHILS # (AUTO) 0.2 X10'3 (0-0.9); EOSINOPHILS % (AUTO) 8.5 % (0-6); HEMATOCRIT 26.3 % (42.0-52.0); HEMOGLOBIN 8.8 g/dl (14.0-17.9); LYMPHOCYTES # (AUTO) 0.5 X10'3 (1.1-4.8); LYMPHOCYTES % (AUTO) 18.9 % (21-51); MEAN CORPUSCULAR HEMOGLOBIN 31.7 PG (27.0-31.0); MEAN CORPUSCULAR HGB CONC 33.3 g/dL (33.0-36.5); MEAN PLATELET VOLUME 10.1 FL (7.4-10.4); MONOCYTES # (AUTO) 0.2 X10'3 (0-0.9); MONOCYTES % (AUTO) 5.4 % (2-12); NEUTROPHILS # (AUTO) 1.9 X10'3 (1.8-7.7); PLATELET COUNT 51 X10'3 (140-440); RED BLOOD COUNT 2.77 X10'6 (4.70-6.10); RED CELL DISTRIBUTION WIDTH 20.9 % (11.5-14.5); WHITE BLOOD COUNT 2.9 X10'3 (4.5-11.0)
[2018-12-10 05:49] LABS: PARTIAL THROMBOPLASTIN TIME 35 SECONDS (22-32)
--- NOTE | 2018-12-10 06:25 | NUR ---
Problems reprioritized. Patient report given, questions answered & plan of care reviewed with YIMI Tracy.
--- NOTE | 2018-12-10 06:30 | NUR ---
Patient in room CICU 2012. I have received report from Layla GELLER and had the opportunity to ask questions and assume patient care. Patient laying in bed with eyes closed, on 3L NC, sating 100%, low blood pressure aware, patient to receive PRBC due to rectal bleed, Md also aware of active bleed, patient to go down to [place] for a study once blood products have been administered. Will continue to monitor
[2018-12-10 06:48] LABS: PLATELET ESTIMATE DECREASED
[2018-12-10 06:49] LABS: ANISOCYTOSIS 3+; BURR CELLS FEW
--- NOTE | 2018-12-10 07:10 | NUR ---
Patient had another large BM with gelatinous bloody stool with an egg sized clot. Called chargemaster specialist to bedside, she called Dr. Pineda and entered new orders for the patient. will continue to monitor
[2018-12-10] MEDS: pantoprazole 40 MG vial IV SCH (07:58)
[2018-12-10] MEDS: linezolid 600mg/300ml PREMIX 300 ML IV SCH (07:59)
[2018-12-10] MEDS: heparin, porcine 5000 units/ml vial SQ SCH ×2 (08:00→20:00)
[2018-12-10] MEDS: NORepinephrine 8mg/ 250ml NS 250 ML IV SCH (08:10)
[2018-12-10 08:32] LABS: HEMATOCRIT 27.2 % (42.0-52.0); HEMOGLOBIN 9.2 g/dl (14.0-17.9); MEAN CORPUSCULAR HEMOGLOBIN 31.2 PG (27.0-31.0); MEAN CORPUSCULAR HGB CONC 33.8 g/dL (33.0-36.5); MEAN CORPUSCULAR VOLUME 92.4 FL (78-98); MEAN PLATELET VOLUME 10.4 FL (7.4-10.4); RED BLOOD COUNT 2.95 X10'6 (4.70-6.10); RED CELL DISTRIBUTION WIDTH 17.5 % (11.5-14.5); WHITE BLOOD COUNT 3.1 X10'3 (4.5-11.0)
[2018-12-10 08:44] LABS: PLATELET COUNT 41 X10'3 (140-440)
[2018-12-10] MEDS ORDERED: albumin (Human) 5% 250ml 250 ML IV ONE ×2 (08:52→08:55)
--- NOTE | 2018-12-10 10:20 | NUR ---
patient to [place] accompanied by GREG Zelaya, prema myself the patients RN, patient transported with portable monitor with IV pole with infusions running, and O2 tank at 3L min
[2018-12-10 10:24] LABS: HEMATOCRIT 25.6 % (42.0-52.0); HEMOGLOBIN 8.6 g/dl (14.0-17.9); MEAN CORPUSCULAR HEMOGLOBIN 30.6 PG (27.0-31.0); MEAN CORPUSCULAR HGB CONC 33.6 g/dL (33.0-36.5); MEAN CORPUSCULAR VOLUME 91.2 FL (78-98); MEAN PLATELET VOLUME 8.3 FL (7.4-10.4); PLATELET COUNT 82 X10'3 (140-440); RED BLOOD COUNT 2.81 X10'6 (4.70-6.10); RED CELL DISTRIBUTION WIDTH 17.1 % (11.5-14.5); WHITE BLOOD COUNT 2.8 X10'3 (4.5-11.0)
--- NOTE | 2018-12-10 13:15 | NUR ---
F/U: Pt was extubated yesterday and stopped Zyvox. Pt transfused 2 units of PRBC due to GI rectal bleed, improved Hgb but still remains low, noted per MD. Pt went for nuclear scan to check on the bleed this am. Continue NPO per MD for GI bleed. LBM 12/09. Will continue to monitor. Arjun trigger: Arjun 12 w/ open cholecystectomy surgical site, and bilateral foot +2 pitting edema present. Will monitor for nutrition support needs if prolonged intubation post-op or IF remains NPO further. F/U: Pt was found to have gangrenous cholecystitis yesterday at OR; resulting in open nick. Pt is going back to OR today for relook and closure. Pt is septic. Pt is intubated on Levophed 7mcg. Per MD replaced Mg and Phos. LBM 12/06. Pt with increase protein need due to Dx; however, will continue NPO until medically able to resume po diet; if NPO 7 days or more, would benefit from PN, pt already has a PICC. Pt documented as obtunded and A/O x1. Will continue to monitor. Rec: 1. Continue NPO until medically able to resume po diet.IF NPO 7 days or greater anticipated; consider PN or EN to meet needs if cleared by MD 2. Routine bowel care 3. Weekly wts Addendum: 12/10/18 at [address] Amended: Links added. Addendum: 12/10/18 at [address] SETH reviewed and agree with agriculture intern note
[2018-12-10 13:32] LABS: HEMATOCRIT 25.4 % (42.0-52.0); HEMOGLOBIN 8.5 g/dl (14.0-17.9); MEAN CORPUSCULAR HEMOGLOBIN 30.3 PG (27.0-31.0); MEAN CORPUSCULAR HGB CONC 33.3 g/dL (33.0-36.5); MEAN PLATELET VOLUME 8.7 FL (7.4-10.4); PLATELET COUNT 77 X10'3 (140-440); RED BLOOD COUNT 2.79 X10'6 (4.70-6.10); RED CELL DISTRIBUTION WIDTH 18.1 % (11.5-14.5); WHITE BLOOD COUNT 2.8 X10'3 (4.5-11.0)
[2018-12-10] MEDS: sodium chloride 0.45% 1,000 ML IV SCH (13:49)
[2018-12-10 17:01] LABS: HEMATOCRIT 24.2 % (42.0-52.0); HEMOGLOBIN 8.1 g/dl (14.0-17.9); MEAN CORPUSCULAR HEMOGLOBIN 30.6 PG (27.0-31.0); MEAN CORPUSCULAR HGB CONC 33.6 g/dL (33.0-36.5); MEAN CORPUSCULAR VOLUME 91.1 FL (78-98); MEAN PLATELET VOLUME 8.5 FL (7.4-10.4); PLATELET COUNT 69 X10'3 (140-440); RED BLOOD COUNT 2.66 X10'6 (4.70-6.10); RED CELL DISTRIBUTION WIDTH 18.7 % (11.5-14.5); WHITE BLOOD COUNT 2.5 X10'3 (4.5-11.0)
--- NOTE | 2018-12-10 18:30 | NUR ---
Patient in room CICU 2013. I have received report from YIMI Tracy and had the opportunity to ask questions and assume patient care.
--- NOTE | 2018-12-10 18:37 | NUR ---
Problems reprioritized. Patient report given, questions answered & plan of care reviewed with Beverly GELLER.
[2018-12-10 21:17] LABS: HEMATOCRIT 22.6 % (42.0-52.0); HEMOGLOBIN 7.9 g/dl (14.0-17.9); MEAN CORPUSCULAR HEMOGLOBIN 31.3 PG (27.0-31.0); MEAN CORPUSCULAR HGB CONC 34.8 g/dL (33.0-36.5); MEAN CORPUSCULAR VOLUME 89.8 FL (78-98); MEAN PLATELET VOLUME 7.8 FL (7.4-10.4); PLATELET COUNT 126 X10'3 (140-440); RED BLOOD COUNT 2.52 X10'6 (4.70-6.10); RED CELL DISTRIBUTION WIDTH 18.2 % (11.5-14.5); WHITE BLOOD COUNT 2.3 X10'3 (4.5-11.0)
[2018-12-11] VITALS (24 sets, daily range): BP systolic 90–127; BP diastolic 42–65
[2018-12-11] MEDS: HYDROmorphone/NS 1 mg/ml CADD 50 ML IV SCH ×12 (01:00→23:00)
--- NOTE | 2018-12-11 01:46 | NUR ---
Notified Dana Cathy, CELIA about patient pulling out NG tube when coming out of sleep. Patient has not been having any gastric drainage from NG tube, bowel sounds are hypoactive, abdomen is soft, patient npo and continuing to have blood in stool (last bm was large maroon and with large clot). POTTERY STRIPER asking that NG tube stay out at this time and will reassess at later time.
[2018-12-11 03:10] LABS: BASOPHILS % (AUTO) 0.4 % (0-1); EOSINOPHILS # (AUTO) 0.1 X10'3 (0-0.9); EOSINOPHILS % (AUTO) 5.4 % (0-6); HEMATOCRIT 23.4 % (42.0-52.0); LYMPHOCYTES # (AUTO) 0.5 X10'3 (1.1-4.8); LYMPHOCYTES % (AUTO) 18.5 % (21-51); MEAN CORPUSCULAR HEMOGLOBIN 31.1 PG (27.0-31.0); MEAN CORPUSCULAR HGB CONC 34.4 g/dL (33.0-36.5); MEAN CORPUSCULAR VOLUME 90.4 FL (78-98); MEAN PLATELET VOLUME 8.3 FL (7.4-10.4); MONOCYTES # (AUTO) 0.1 X10'3 (0-0.9); MONOCYTES % (AUTO) 4.9 % (2-12); NEUTROPHILS # (AUTO) 1.7 X10'3 (1.8-7.7); NEUTROPHILS % (AUTO) 70.8 % (42-75); PLATELET COUNT 135 X10'3 (140-440); RED BLOOD COUNT 2.59 X10'6 (4.70-6.10); WHITE BLOOD COUNT 2.5 X10'3 (4.5-11.0)
[2018-12-11 03:19] LABS: GLUCOSE 77 MG/DL (70-104)
[2018-12-11 03:20] LABS: ALANINE AMINOTRANSFERASE 25 U/L (12-78); ALBUMIN 1.8 G/DL (3.4-5.0); ALBUMIN/GLOBULIN RATIO 0.7 (1.1-1.5); ALKALINE PHOSPHATASE 74 IU/L (46-116); ANION GAP 7 (8-16); ASPARTATE AMINO TRANSFERASE 16 U/L (10-37); BILIRUBIN,TOTAL 1.1 MG/DL (0.1-1.0); BLOOD UREA NITROGEN 23 MG/DL (7-18); BUN/CREATININE RATIO 27.4 (5.4-32.0); CALCIUM 8.6 MG/DL (8.5-10.1); CHLORIDE 115 MMOL/L (99-107); CREATININE 0.84 MG/DL (0.60-1.10); MAGNESIUM 1.7 MG/DL (1.5-2.4); POTASSIUM 3.7 MMOL/L (3.5-5.1); SODIUM 146 MMOL/L (135-145); TOTAL CARBON DIOXIDE 24.1 MMOL/L (24-32); TOTAL PROTEIN 4.4 G/DL (6.4-8.2); eGFR > 90 ML/MIN
[2018-12-11 03:49] LABS: ANISOCYTOSIS 1+; TOTAL CELLS COUNTED 100
[2018-12-11 03:50] LABS: LARGE PLATELETS FEW; PLATELET ESTIMATE DECREASED
[2018-12-11] MEDS: ipratropium/albuterol 3ml nebule NEB SCH ×6 (04:23→23:21)
[2018-12-11] MEDS: sodium chloride 0.45% 1,000 ML IV SCH ×2 (05:12→16:32)
--- NOTE | 2018-12-11 06:24 | NUR ---
Problems reprioritized. Patient report given, questions answered & plan of care reviewed with YIMI Tracy.
--- NOTE | 2018-12-11 06:24 | NUR ---
I have reviewed and agree with all interventions, assessments performed and documented by YIMI Husain.
--- NOTE | 2018-12-11 06:55 | NUR ---
Patient in room CICU 2012. I have received report from Beverly GELLER and had the opportunity to ask questions and assume patient care. Patient laying in bed on room air sating 97%, faust draining to gravity, SEAN drain in place with serosang drainage, ABD midline dressing intact, 1/2 NS infusing to R PICC line, demand CAD with 20ml/hr TKO infusing to R IJ, vital signs stable no signs or symptoms of distress will continue to monitor
[2018-12-11] MEDS: heparin, porcine 5000 units/ml vial SQ SCH ×2 (08:00→18:41)
[2018-12-11] MEDS: piperacillin/tazo 3.375gm/50ml 50 ML IV SCH (08:38)
[2018-12-11] MEDS: pantoprazole 40 MG vial IV SCH (08:38)
[2018-12-11] MEDS ORDERED: total parenteral nutrition 1 EACH, calcium gluconate 12 MEQ, magnesium 16 MEQ, sodium 8... IV SCH ×14 (09:40)
[2018-12-11 12:08] LABS: HEMATOCRIT 25.4 % (42.0-52.0); HEMOGLOBIN 8.7 g/dl (14.0-17.9); MEAN CORPUSCULAR HEMOGLOBIN 31.3 PG (27.0-31.0); MEAN CORPUSCULAR HGB CONC 34.4 g/dL (33.0-36.5); MEAN CORPUSCULAR VOLUME 90.9 FL (78-98); MEAN PLATELET VOLUME 7.9 FL (7.4-10.4); PLATELET COUNT 130 X10'3 (140-440); RED CELL DISTRIBUTION WIDTH 18.1 % (11.5-14.5); WHITE BLOOD COUNT 2.3 X10'3 (4.5-11.0)
--- NOTE | 2018-12-11 12:16 | NUR ---
TPN consult: Per MD TPN consult, rec. 2:1 TPN using Clinimix E 5/15 at 117ml/hr to run continuously for 24hr QD; separate 290ml (24ml/hr) 20% intralipids to run for 12 hours QD to provide 58g lipids, discussed with pharmacy. Pt has been NPO for 6 days, and expected to be longer. Current TPN would meet the expected needs. Per MD, pt is awake, more alert, but tired. Pt had one bloody BM, but another one without blood this am per nurse. Pt's GI scan to check rectal bleed was negative as noted in chart. LBM 12/11. Will monitor TPN tolerance. F/U: Pt was extubated yesterday and stopped Zyvox. Pt transfused 2 units of PRBC due to GI rectal bleed, improved Hgb but still remains low, noted per MD. Pt went for nuclear scan to check on the bleed this am. Continue NPO per MD for GI bleed. LBM 12/09. Will continue to monitor. Arjun trigger: Arjun 12 w/ open cholecystectomy surgical site, and bilateral foot +2 pitting edema present. Will monitor for nutrition support needs if prolonged intubation post-op or IF remains NPO further. F/U: Pt was found to have gangrenous cholecystitis yesterday at OR; resulting in open nick. Pt is going back to OR today for relook and closure. Pt is septic. Pt is intubated on Levophed 7mcg. Per MD replaced Mg and Phos. LBM 12/06. Pt with increase protein need due to Dx; however, will continue NPO until medically able to resume po diet; if NPO 7 days or more, would benefit from PN, pt already has a PICC. Pt documented as obtunded and A/O x1. Will continue to monitor. Rec: 1. Tolerance TPN by using Clinimix E 5/15 at 117ml/hr to run continuously for 24 hours QD; separate 290ml (24ml/hr) 20% intralipids to run for 12 hours QD to provide 58g lipids; this will provide 2808ml total volume, 2011 total non-protein cals, 2571 total cals, 3.02mg/kg/min CHO loading. 2. Routine bowel care 3. daily wts 4. Prealbumin qM/TH Addendum: 12/11/18 at [address] Amended: Links added. Addendum: 12/11/18 at [address] SETH has reviewed and agree with equine intern note
[2018-12-11] MEDS ORDERED: Dextrose 10%-water IV solution 1,000 ML IV PRN (13:51)
[2018-12-11] MEDS ORDERED: potassium Cl 20mEq/100mL bag 100 ML IV PRN (13:55)
[2018-12-11] MEDS ORDERED: magnesium 2GM in 50ml NS 50 ML IV PRN (13:55)
[2018-12-11] MEDS ORDERED: magnesium 4gm in 100ml NS 100 ML IV PRN (13:55)
[2018-12-11] MEDS ORDERED: magnesium Cl slow-release 64mg tablet PO PRN (13:55)
[2018-12-11] MEDS ORDERED: Neutra Phos packet PO PRN (13:55)
[2018-12-11] MEDS ORDERED: sodium phosphate inj. 30 MMOL in dextrose 5%-water 250 ML IV PRN (13:55)
[2018-12-11] MEDS ORDERED: potassium Cl 20 mEq SR tablet PO PRN ×2 (13:55)
--- NOTE | 2018-12-11 14:05 | NUR ---
Pts blood sugar 59 tx with D50 25ml, repeat bs 110
[2018-12-11] MEDS ORDERED: MESSAGE TO PHARMACY PO ONE (14:15)
[2018-12-11] MEDS ORDERED: glucagon, human recombinant 1mg kit SUBCUT PRN (14:15)
[2018-12-11] MEDS ORDERED: insulin regular, human vial - multi-dose SQ SCH (14:15)
[2018-12-11] MEDS ORDERED: dextrose ORAL solution 15 GM/59 ML bottle PO PRN ×2 (14:15)
[2018-12-11] MEDS ORDERED: dextrose 50%-water 50ml dispensing syringe IV PRN ×2 (14:15)
[2018-12-11] MEDS ORDERED: dextrose 50%-water 50ml dispensing syringe IV ONE (14:22)
[2018-12-11 15:33] LABS: ALANINE AMINOTRANSFERASE 36 U/L (12-78); ALBUMIN 1.7 G/DL (3.4-5.0); ALBUMIN/GLOBULIN RATIO 0.6 (1.1-1.5); ALKALINE PHOSPHATASE 82 IU/L (46-116); ANION GAP 7 (8-16); ASPARTATE AMINO TRANSFERASE 22 U/L (10-37); BILIRUBIN,TOTAL 1.1 MG/DL (0.1-1.0); BLOOD UREA NITROGEN 20 MG/DL (7-18); BUN/CREATININE RATIO 23.8 (5.4-32.0); CALCIUM 8.7 MG/DL (8.5-10.1); CHLORIDE 115 MMOL/L (99-107); CREATININE 0.84 MG/DL (0.60-1.10); GLUCOSE 99 MG/DL (70-104); MAGNESIUM 1.7 MG/DL (1.5-2.4); PHOSPHORUS 2.3 MG/DL (2.3-4.5); POTASSIUM 3.6 MMOL/L (3.5-5.1); PREALBUMIN 10.4 MG/DL (19-36); SODIUM 146 MMOL/L (135-145); TOTAL PROTEIN 4.4 G/DL (6.4-8.2); TRIGLYCERIDES 138 MG/DL (20-135); eGFR > 90 ML/MIN
[2018-12-11] MEDS: Trace element-5 inj. 1 ML in AA 5%/cal/electrolyte-TPN/D15W 2,000 ML IV SCH (15:58)
[2018-12-11] MEDS: piperacillin/tazo 4.5gm/100ml 100 ML IV SCH ×2 (16:34→23:47)
--- NOTE | 2018-12-11 18:27 | NUR ---
Problems reprioritized. Patient report given, questions answered & plan of care reviewed with Beverly GELLER.
--- NOTE | 2018-12-11 18:30 | NUR ---
Patient in room CICU 2013. I have received report from YIMI Tracy and had the opportunity to ask questions and assume patient care.
[2018-12-11] MEDS: FAT EMULSION 20% IV SCH (20:03)
[2018-12-11 20:35] LABS: HEMOGLOBIN 8.5 g/dl (14.0-17.9); MEAN CORPUSCULAR HEMOGLOBIN 31.1 PG (27.0-31.0); MEAN CORPUSCULAR HGB CONC 34.1 g/dL (33.0-36.5); MEAN CORPUSCULAR VOLUME 91.3 FL (78-98); MEAN PLATELET VOLUME 8.5 FL (7.4-10.4); PLATELET COUNT 120 X10'3 (140-440); RED BLOOD COUNT 2.73 X10'6 (4.70-6.10); RED CELL DISTRIBUTION WIDTH 17.9 % (11.5-14.5); WHITE BLOOD COUNT 2.4 X10'3 (4.5-11.0)
[2018-12-11] MEDS: insulin glargine (Lantus) pen - multi-dose SQ SCH (21:00)
[2018-12-12] VITALS (24 sets, daily range): BP systolic 92–142; BP diastolic 44–60
[2018-12-12] MEDS: HYDROmorphone/NS 1 mg/ml CADD 50 ML IV SCH ×12 (01:00→23:00)
[2018-12-12] MEDS: ipratropium/albuterol 3ml nebule NEB SCH ×6 (02:55→23:46)
[2018-12-12 04:50] LABS: ALANINE AMINOTRANSFERASE 44 U/L (12-78); ALBUMIN 1.5 G/DL (3.4-5.0); ALBUMIN/GLOBULIN RATIO 0.5 (1.1-1.5); ALKALINE PHOSPHATASE 84 IU/L (46-116); ANION GAP 7 (8-16); ASPARTATE AMINO TRANSFERASE 22 U/L (10-37); BILIRUBIN,TOTAL 0.9 MG/DL (0.1-1.0); BLOOD UREA NITROGEN 16 MG/DL (7-18); BUN/CREATININE RATIO 19.8 (5.4-32.0); CALCIUM 8.6 MG/DL (8.5-10.1); CHLORIDE 112 MMOL/L (99-107); CREATININE 0.81 MG/DL (0.60-1.10); GLUCOSE 177 MG/DL (70-104); MAGNESIUM 1.6 MG/DL (1.5-2.4); PHOSPHORUS 1.9 MG/DL (2.3-4.5); POTASSIUM 3.4 MMOL/L (3.5-5.1); SODIUM 142 MMOL/L (135-145); TOTAL CARBON DIOXIDE 23.3 MMOL/L (24-32); TOTAL PROTEIN 4.4 G/DL (6.4-8.2); eGFR > 90 ML/MIN
[2018-12-12 04:55] LABS: BASOPHILS % (AUTO) 0.2 % (0-1); EOSINOPHILS # (AUTO) 0.2 X10'3 (0-0.9); EOSINOPHILS % (AUTO) 7.6 % (0-6); HEMATOCRIT 25.8 % (42.0-52.0); HEMOGLOBIN 8.8 g/dl (14.0-17.9); LYMPHOCYTES # (AUTO) 0.4 X10'3 (1.1-4.8); LYMPHOCYTES % (AUTO) 17.6 % (21-51); MEAN CORPUSCULAR HEMOGLOBIN 30.8 PG (27.0-31.0); MEAN CORPUSCULAR HGB CONC 33.9 g/dL (33.0-36.5); MEAN CORPUSCULAR VOLUME 90.9 FL (78-98); MEAN PLATELET VOLUME 9.4 FL (7.4-10.4); MONOCYTES # (AUTO) 0.1 X10'3 (0-0.9); MONOCYTES % (AUTO) 5.3 % (2-12); NEUTROPHILS # (AUTO) 1.6 X10'3 (1.8-7.7); NEUTROPHILS % (AUTO) 69.3 % (42-75); PLATELET COUNT 116 X10'3 (140-440); RED BLOOD COUNT 2.84 X10'6 (4.70-6.10); RED CELL DISTRIBUTION WIDTH 18.3 % (11.5-14.5); WHITE BLOOD COUNT 2.3 X10'3 (4.5-11.0)
[2018-12-12] MEDS: sodium chloride 0.45% 1,000 ML IV SCH (05:20)
[2018-12-12] MEDS: potassium Cl 20mEq/100mL bag 100 ML IV PRN ×2 (05:35→06:54)
[2018-12-12 05:48] LABS: TOTAL CELLS COUNTED 100
[2018-12-12 05:50] LABS: ANISOCYTOSIS 2+; PLATELET ESTIMATE DECREASED; TOXIC GRANULATION 1+
--- NOTE | 2018-12-12 05:53 | NUR ---
I have reviewed and agree with all interventions, assessments performed and documented by YIMI Husain.
--- NOTE | 2018-12-12 06:22 | NUR ---
Problems reprioritized. Patient report given, questions answered & plan of care reviewed with YIMI Tracy.
[2018-12-12] MEDS: sodium phosphate inj. 15 MMOL in dextrose 5%-water 150 ML IV PRN ×2 (06:36→23:22)
--- NOTE | 2018-12-12 07:18 | NUR ---
Patient in room CICU 2012. I have received report from Beverly Vital and had the opportunity to ask questions and assume patient care. Patient laying in bed with eyes closed, on room air sating 98%, vital signs stable, TPN/Lipids and electrolyte replacements infusing, to R Picc and R IJ, faust draining to gravity, ABD SEAN drain in place with serosang drainage, ABD dressing clean dry and intact, no signs or symptoms of distress will continue to monitor
--- NOTE | 2018-12-12 07:22 | NUR ---
Patient in room CICU 2013. I have received report from Beverly GELLER/Lisha RN and had the opportunity to ask questions and assume patient care. Patient sleeping comfortably, all needs met at this time.
[2018-12-12] MEDS: MVI, adult No.4 with vit. K 10 ML in dextrose 5% water 500ml 490 ML IV SCH ×2 (07:50)
[2018-12-12] MEDS: piperacillin/tazo 4.5gm/100ml 100 ML IV SCH ×2 (07:50→16:13)
[2018-12-12] MEDS: pantoprazole 40 MG vial IV SCH (07:50)
[2018-12-12] MEDS: heparin, porcine 5000 units/ml vial SQ SCH ×2 (07:51→20:00)
[2018-12-12] MEDS: NORepinephrine 8mg/ 250ml NS 250 ML IV SCH (08:10)
[2018-12-12] MEDS ORDERED: filgrastim 300mcg inj SQ ONE (09:55)
[2018-12-12] MEDS ORDERED: TBO-filgrastim 300 MCG/0.5 ML inj. SQ ONE (10:10)
[2018-12-12] MEDS: Trace element-5 inj. 1 ML in AA 5%/cal/electrolyte-TPN/D15W 2,000 ML IV SCH (15:21)
--- NOTE | 2018-12-12 16:00 | NUR ---
Dr. Crain came by to round on patient, up dated him on the swallow eval, informed him that he failed this am. He stated to continue TPN for 48hrs then re evaluate swallowing abilities. If he still fails then to place [facility]. He is ok with him going back to the [facility] after [facility] if needed. Stated to pull the SEAN drain even though it is still producing anywhere from 30-90ml/hr
[2018-12-12 17:15] LABS: HEMATOCRIT 26.8 % (42.0-52.0); HEMOGLOBIN 9.2 g/dl (14.0-17.9); MEAN CORPUSCULAR HEMOGLOBIN 31.3 PG (27.0-31.0); MEAN CORPUSCULAR HGB CONC 34.3 g/dL (33.0-36.5); MEAN CORPUSCULAR VOLUME 91.2 FL (78-98); MEAN PLATELET VOLUME 9.7 FL (7.4-10.4); PLATELET COUNT 112 X10'3 (140-440); RED BLOOD COUNT 2.94 X10'6 (4.70-6.10); RED CELL DISTRIBUTION WIDTH 17.6 % (11.5-14.5); WHITE BLOOD COUNT 5.5 X10'3 (4.5-11.0)
--- NOTE | 2018-12-12 17:40 | NUR ---
Called to update him on Dr. Cueva rounding, he agrees with the plan no new orders at this time
--- NOTE | 2018-12-12 18:15 | NUR ---
Patient in room CICU 2013. I have received report from Rossana GELLER and had the opportunity to ask questions and assume patient care. Patient is sleeping, VS are stable, TPN running. Will continue to monitor closely.
--- NOTE | 2018-12-12 18:25 | NUR ---
Problems reprioritized. Patient report given, questions answered & plan of care reviewed with Reina GELLER. Patient stable at time of shift change, all needs met at this time.
--- NOTE | 2018-12-12 18:56 | NUR ---
Problems reprioritized. Patient report given, questions answered & plan of care reviewed with Reina GELLER.
[2018-12-12] MEDS: FAT EMULSION 20% IV SCH (20:52)
[2018-12-12] MEDS: furosemide 40mg/4ml inj IV SCH (20:52)
[2018-12-12] MEDS: insulin glargine (Lantus) pen - multi-dose SQ SCH (21:00)
[2018-12-13] VITALS (23 sets, daily range): BP systolic 90–123; BP diastolic 44–63
[2018-12-13] MEDS: HYDROmorphone/NS 1 mg/ml CADD 50 ML IV SCH ×12 (01:00→23:00)
[2018-12-13] MEDS: piperacillin/tazo 4.5gm/100ml 100 ML IV SCH ×3 (01:14→15:29)
[2018-12-13 02:52] LABS: BASOPHILS % (AUTO) 0.2 % (0-1); EOSINOPHILS # (AUTO) 0.3 X10'3 (0-0.9); EOSINOPHILS % (AUTO) 3.9 % (0-6); HEMATOCRIT 27.4 % (42.0-52.0); HEMOGLOBIN 9.2 g/dl (14.0-17.9); LYMPHOCYTES # (AUTO) 0.6 X10'3 (1.1-4.8); LYMPHOCYTES % (AUTO) 7.5 % (21-51); MEAN CORPUSCULAR HEMOGLOBIN 30.9 PG (27.0-31.0); MEAN CORPUSCULAR HGB CONC 33.6 g/dL (33.0-36.5); MEAN PLATELET VOLUME 10.2 FL (7.4-10.4); MONOCYTES # (AUTO) 0.2 X10'3 (0-0.9); NEUTROPHILS # (AUTO) 6.9 X10'3 (1.8-7.7); NEUTROPHILS % (AUTO) 85.4 % (42-75); PLATELET COUNT 105 X10'3 (140-440); RED BLOOD COUNT 2.98 X10'6 (4.70-6.10); RED CELL DISTRIBUTION WIDTH 18.6 % (11.5-14.5); WHITE BLOOD COUNT 8.1 X10'3 (4.5-11.0)
[2018-12-13 03:13] LABS: ALANINE AMINOTRANSFERASE 57 U/L (12-78); ALBUMIN 1.5 G/DL (3.4-5.0); ALBUMIN/GLOBULIN RATIO 0.5 (1.1-1.5); ALKALINE PHOSPHATASE 94 IU/L (46-116); ANION GAP 8 (8-16); ASPARTATE AMINO TRANSFERASE 23 U/L (10-37); BILIRUBIN,TOTAL 0.8 MG/DL (0.1-1.0); BLOOD UREA NITROGEN 16 MG/DL (7-18); BUN/CREATININE RATIO 19.8 (5.4-32.0); CALCIUM 8.8 MG/DL (8.5-10.1); CHLORIDE 113 MMOL/L (99-107); CREATININE 0.81 MG/DL (0.60-1.10); GLUCOSE 124 MG/DL (70-104); MAGNESIUM 1.4 MG/DL (1.5-2.4); PHOSPHORUS 2.4 MG/DL (2.3-4.5); POTASSIUM 3.3 MMOL/L (3.5-5.1); PREALBUMIN 9.5 MG/DL (19-36); SODIUM 146 MMOL/L (135-145); TOTAL CARBON DIOXIDE 24.6 MMOL/L (24-32); TOTAL PROTEIN 4.6 G/DL (6.4-8.2); TRIGLYCERIDES 180 MG/DL (20-135); eGFR > 90 ML/MIN
[2018-12-13] MEDS: ipratropium/albuterol 3ml nebule NEB SCH ×6 (03:51→23:32)
[2018-12-13] MEDS: potassium Cl 20mEq/100mL bag 100 ML IV PRN ×2 (03:59→05:00)
--- NOTE | 2018-12-13 06:00 | NUR ---
Patient in room CICU 2012. I have received report from Reina GELLER and had the opportunity to ask questions and assume patient care.
--- NOTE | 2018-12-13 06:46 | NUR ---
Problems reprioritized. Patient report given, questions answered & plan of care reviewed with Caity GELLER.
[2018-12-13] MEDS: heparin, porcine 5000 units/ml vial SQ SCH ×2 (08:00→20:01)
[2018-12-13] MEDS: pantoprazole 40 MG vial IV SCH (09:09)
[2018-12-13] MEDS: furosemide 40mg/4ml inj IV SCH ×2 (09:09→20:02)
--- NOTE | 2018-12-13 15:14 | NUR ---
F/U: Pt failed the BSS, continues to be NPO per speech therapist. TPN is at 30ml/hr, but will increase to goal rate today per RN. Pt's electrolytes has been improving per RN. LBM 12/13. Will continue to monitor. TPN consult: Per MD TPN consult, rec. 2:1 TPN using Clinimix E 5/15 at 117ml/hr to run continuously for 24hr QD; separate 290ml (24ml/hr) 20% intralipids to run for 12 hours QD to provide 58g lipids, discussed with pharmacy. Pt has been NPO for 6 days, and expected to be longer. Current TPN would meet the expected needs. Per MD, pt is awake, more alert, but tired. Pt had one bloody BM, but another one without blood this am per nurse. Pt's GI scan to check rectal bleed was negative as noted in chart. LBM 12/11. Will monitor TPN tolerance. F/U: Pt was extubated yesterday and stopped Zyvox. Pt transfused 2 units of PRBC due to GI rectal bleed, improved Hgb but still remains low, noted per MD. Pt went for nuclear scan to check on the bleed this am. Continue NPO per MD for GI bleed. LBM 12/09. Will continue to monitor. Arjun trigger: Arjun 12 w/ open cholecystectomy surgical site, and bilateral foot +2 pitting edema present. Will monitor for nutrition support needs if prolonged intubation post-op or IF remains NPO further. F/U: Pt was found to have gangrenous cholecystitis yesterday at OR; resulting in open nick. Pt is going back to OR today for relook and closure. Pt is septic. Pt is intubated on Levophed 7mcg. Per MD replaced Mg and Phos. LBM 12/06. Pt with increase protein need due to Dx; however, will continue NPO until medically able to resume po diet; if NPO 7 days or more, would benefit from PN, pt already has a PICC. Pt documented as obtunded and A/O x1. Will continue to monitor. Rec: 1. Tolerance TPN by using Clinimix E 5/15 at 117ml/hr to run continuously for 24 hours QD; separate 290ml (24ml/hr) 20% intralipids to run for 12 hours QD to provide 58g lipids; this will provide 2808ml total volume, 2010 total non-protein cals, 2571 total cals, 3.02mg/kg/min CHO loading. 2. Routine bowel care 3. daily wts 4. Prealbumin qM/TH Addendum: 12/13/18 at [address] Amended: Links added. Addendum: 12/13/18 at [address] SETH reviewed and agree with internet application developer note
[2018-12-13] MEDS: Trace element-5 inj. 1 ML in AA 5%/cal/electrolyte-TPN/D15W 2,000 ML IV SCH (15:50)
[2018-12-13] MEDS: MVI, adult No.4 with vit. K 10 ML in dextrose 5% water 500ml 490 ML IV SCH ×2 (17:19)
--- NOTE | 2018-12-13 18:00 | NUR ---
Problems reprioritized. Patient report given, questions answered & plan of care reviewed with Tomeka GELLER.
--- NOTE | 2018-12-13 18:30 | NUR ---
Patient in room CICU 2013. I have received report from Deedee GELLER and had the opportunity to ask questions and assume patient care.
[2018-12-13] MEDS ORDERED: acetaminophen 120MG suppository, rectal RC PRN (18:35)
[2018-12-13] MEDS: FAT EMULSION 20% IV SCH (20:02)
[2018-12-13] MEDS: insulin glargine (Lantus) pen - multi-dose SQ SCH (21:00)
--- NOTE | 2018-12-13 21:11 | NUR ---
Pt somulent at times, but awakens easily. Respirations labored but maintaining sats of 99% on room air. Grimaces when turned but needs encouragement to use CADD. Encouraged cough and deep breathe, IS and flutter valve use.
--- NOTE | 2018-12-13 23:07 | NUR ---
Pt sleepy, but awakens easily, respirations labored but maintaining sat of 100% on RA. Asking questions like"Why am I here?" accepts answer to question. Encouraging cough and deep breathe, IS and flutter valve use. Diuresed well p/Lasix. Will continue to monitor.
[2018-12-14] VITALS (22 sets, daily range): BP systolic 77–129; BP diastolic 36–73
[2018-12-14] MEDS: piperacillin/tazo 4.5gm/100ml 100 ML IV SCH ×4 (00:14→23:57)
[2018-12-14] MEDS: HYDROmorphone/NS 1 mg/ml CADD 50 ML IV SCH ×12 (01:00→23:00)
[2018-12-14 02:21] LABS: BASOPHILS % (AUTO) 0.2 % (0-1); EOSINOPHILS # (AUTO) 0.3 X10'3 (0-0.9); EOSINOPHILS % (AUTO) 3.5 % (0-6); HEMATOCRIT 27.1 % (42.0-52.0); HEMOGLOBIN 9.2 g/dl (14.0-17.9); LYMPHOCYTES # (AUTO) 0.9 X10'3 (1.1-4.8); LYMPHOCYTES % (AUTO) 10.1 % (21-51); MEAN CORPUSCULAR HEMOGLOBIN 31.1 PG (27.0-31.0); MEAN CORPUSCULAR HGB CONC 33.9 g/dL (33.0-36.5); MEAN CORPUSCULAR VOLUME 91.8 FL (78-98); MEAN PLATELET VOLUME 10.8 FL (7.4-10.4); MONOCYTES # (AUTO) 0.3 X10'3 (0-0.9); MONOCYTES % (AUTO) 3.5 % (2-12); NEUTROPHILS # (AUTO) 7.5 X10'3 (1.8-7.7); NEUTROPHILS % (AUTO) 82.7 % (42-75); PLATELET COUNT 109 X10'3 (140-440); RED BLOOD COUNT 2.95 X10'6 (4.70-6.10); RED CELL DISTRIBUTION WIDTH 19.1 % (11.5-14.5); WHITE BLOOD COUNT 9.1 X10'3 (4.5-11.0)
[2018-12-14 02:34] LABS: ALANINE AMINOTRANSFERASE 56 U/L (12-78); ALBUMIN 1.5 G/DL (3.4-5.0); ALBUMIN/GLOBULIN RATIO 0.5 (1.1-1.5); ALKALINE PHOSPHATASE 99 IU/L (46-116); ANION GAP 7 (8-16); ASPARTATE AMINO TRANSFERASE 16 U/L (10-37); BILIRUBIN,TOTAL 0.7 MG/DL (0.1-1.0); BLOOD UREA NITROGEN 26 MG/DL (7-18); CALCIUM 8.9 MG/DL (8.5-10.1); CHLORIDE 110 MMOL/L (99-107); CREATININE 0.84 MG/DL (0.60-1.10); GLUCOSE 148 MG/DL (70-104); MAGNESIUM 1.9 MG/DL (1.5-2.4); PHOSPHORUS 2.3 MG/DL (2.3-4.5); POTASSIUM 3.4 MMOL/L (3.5-5.1); SODIUM 143 MMOL/L (135-145); TOTAL CARBON DIOXIDE 26.3 MMOL/L (24-32); TOTAL PROTEIN 4.6 G/DL (6.4-8.2); eGFR > 90 ML/MIN
[2018-12-14] MEDS ORDERED: albumin (human) 25% 100 ML IV solution IV ONE (03:05)
[2018-12-14] MEDS: ipratropium/albuterol 3ml nebule NEB SCH ×6 (03:05→23:19)
--- NOTE | 2018-12-14 03:05 | NUR ---
Pt hypotensive,AM labs reviewed, Liliana updated, orders received. Will continue to monitor.
[2018-12-14 03:23] LABS: ANISOCYTOSIS 2+; PLATELET ESTIMATE DECREASED; POLYCHROMASIA 1+; TOTAL CELLS COUNTED 100
[2018-12-14 03:24] LABS: MONOCYTES % (MANUAL) 1 % (2-12); PROMYELOCYTES % (MANUAL) 0 % (0-0)
[2018-12-14] MEDS: potassium Cl 20mEq/100mL bag 100 ML IV PRN ×2 (05:31→07:19)
--- NOTE | 2018-12-14 06:45 | NUR ---
Problems reprioritized. Patient report given, questions answered & plan of care reviewed with Chandrakant GELLER.
[2018-12-14] MEDS: NORepinephrine 8mg/ 250ml NS 250 ML IV SCH (08:10)
--- NOTE | 2018-12-14 08:40 | NUR ---
I have reviewed and agree with all medications administered and interventions performed by [facility] Student Jose cano Addendum: 12/14/18 at 0842 by [address]itia RT Amended: Links added.
[2018-12-14] MEDS: MVI, adult No.4 with vit. K 10 ML in dextrose 5% water 500ml 490 ML IV SCH ×2 (09:27)
[2018-12-14] MEDS: pantoprazole 40 MG vial IV SCH (09:27)
[2018-12-14] MEDS: furosemide 40mg/4ml inj IV SCH ×2 (09:27→20:41)
[2018-12-14] MEDS: heparin, porcine 5000 units/ml vial SQ SCH ×2 (09:28→20:41)
[2018-12-14] MEDS: diatr meglu/diatrizoate 30ml oral sol.-(3 dose) bottle PO SCH ×4 (13:08→21:00)
[2018-12-14] MEDS: Trace element-5 inj. 1 ML in AA 5%/cal/electrolyte-TPN/D15W 2,000 ML IV SCH (15:00)
--- NOTE | 2018-12-14 17:31 | NUR ---
F/U (12/14): Pt continues with TPN at goal rate. Pt failed another BSS today, continue to be NPO per speech therapist due to coughing after swallow. SETH discussed with MD with possibility of TF, per MD wishes to continue TPN. LBM 12/13. Will continue to monitor. Addendum: 12/14/18 at [address] Amended: Links added.
--- NOTE | 2018-12-14 18:22 | NUR ---
Problems reprioritized. Patient report given, questions answered & plan of care reviewed with Tomeka GELLER.
[2018-12-14] MEDS ORDERED: iohexol 300mg/ml 100ml inj. ONE (18:25)
--- NOTE | 2018-12-14 18:30 | NUR ---
Patient in room CICU 2013. I have received report from Chandrakant GELLER and had the opportunity to ask questions and assume patient care.
[2018-12-14] MEDS: FAT EMULSION 20% IV SCH (20:41)
[2018-12-14] MEDS: insulin glargine (Lantus) pen - multi-dose SQ SCH (21:00)
[2018-12-15] VITALS (24 sets, daily range): BP systolic 89–122; BP diastolic 41–62
[2018-12-15] MEDS: HYDROmorphone/NS 1 mg/ml CADD 50 ML IV SCH ×11 (01:00→23:00)
[2018-12-15 02:56] LABS: BASOPHILS % (AUTO) 0.2 % (0-1); EOSINOPHILS # (AUTO) 0.4 X10'3 (0-0.9); EOSINOPHILS % (AUTO) 3.6 % (0-6); HEMATOCRIT 25.6 % (42.0-52.0); HEMOGLOBIN 8.6 g/dl (14.0-17.9); LYMPHOCYTES # (AUTO) 1.1 X10'3 (1.1-4.8); LYMPHOCYTES % (AUTO) 8.7 % (21-51); MEAN CORPUSCULAR HEMOGLOBIN 30.9 PG (27.0-31.0); MEAN CORPUSCULAR HGB CONC 33.5 g/dL (33.0-36.5); MEAN CORPUSCULAR VOLUME 92.1 FL (78-98); MEAN PLATELET VOLUME 11.5 FL (7.4-10.4); MONOCYTES # (AUTO) 0.4 X10'3 (0-0.9); MONOCYTES % (AUTO) 3.3 % (2-12); NEUTROPHILS # (AUTO) 10.3 X10'3 (1.8-7.7); NEUTROPHILS % (AUTO) 84.2 % (42-75); PLATELET COUNT 133 X10'3 (140-440); RED BLOOD COUNT 2.77 X10'6 (4.70-6.10); RED CELL DISTRIBUTION WIDTH 19.8 % (11.5-14.5); WHITE BLOOD COUNT 12.2 X10'3 (4.5-11.0)
[2018-12-15] MEDS: ipratropium/albuterol 3ml nebule NEB SCH ×6 (03:09→23:03)
[2018-12-15 03:10] LABS: ALANINE AMINOTRANSFERASE 42 U/L (12-78); ALBUMIN 1.8 G/DL (3.4-5.0); ALBUMIN/GLOBULIN RATIO 0.6 (1.1-1.5); ALKALINE PHOSPHATASE 100 IU/L (46-116); ANION GAP 7 (8-16); ASPARTATE AMINO TRANSFERASE 15 U/L (10-37); BILIRUBIN,TOTAL 0.8 MG/DL (0.1-1.0); BLOOD UREA NITROGEN 27 MG/DL (7-18); CALCIUM 9.2 MG/DL (8.5-10.1); CHLORIDE 105 MMOL/L (99-107); GLUCOSE 157 MG/DL (70-104); MAGNESIUM 1.6 MG/DL (1.5-2.4); PHOSPHORUS 2.6 MG/DL (2.3-4.5); POTASSIUM 3.3 MMOL/L (3.5-5.1); SODIUM 140 MMOL/L (135-145); TOTAL CARBON DIOXIDE 27.8 MMOL/L (24-32); TOTAL PROTEIN 4.8 G/DL (6.4-8.2); eGFR 84 ML/MIN
[2018-12-15] MEDS: potassium Cl 20mEq/100mL bag 100 ML IV PRN ×2 (03:43→05:47)
[2018-12-15 04:17] LABS: TOTAL CELLS COUNTED 100
[2018-12-15 04:18] LABS: ANISOCYTOSIS 2+; LARGE PLATELETS FEW; PLATELET ESTIMATE DECREASED; POLYCHROMASIA 1+
[2018-12-15 04:19] LABS: TOXIC GRANULATION 3+
[2018-12-15 04:24] LABS: SCHISTOCYTES FEW
[2018-12-15 04:27] LABS: GIANT PLATELET FEW
--- NOTE | 2018-12-15 04:54 | NUR ---
Late entry: 185. Pt awake, alert, confused at times but answers questions appropriately. PO contrast given, pt to CT scan via gurney. 1907:Pt back from CT scan without incident. Awaiting results
--- NOTE | 2018-12-15 06:40 | NUR ---
Problems reprioritized. Patient report given, questions answered & plan of care reviewed with Marques GELLER.
[2018-12-15] MEDS: diatr meglu/diatrizoate 30ml oral sol.-(3 dose) bottle PO SCH (07:00)
[2018-12-15] MEDS: pantoprazole 40 MG vial IV SCH (08:28)
[2018-12-15] MEDS: furosemide 40mg/4ml inj IV SCH ×2 (08:28→20:32)
[2018-12-15] MEDS: piperacillin/tazo 4.5gm/100ml 100 ML IV SCH ×2 (08:28→16:23)
[2018-12-15] MEDS: MVI, adult No.4 with vit. K 10 ML in dextrose 5% water 500ml 490 ML IV SCH ×2 (08:28)
[2018-12-15] MEDS: heparin, porcine 5000 units/ml vial SQ SCH ×2 (08:29→20:32)
[2018-12-15] MEDS: Trace element-5 inj. 1 ML in AA 5%/cal/electrolyte-TPN/D15W 2,000 ML IV SCH (08:51)
[2018-12-15] MEDS ORDERED: multi-vitamin w/minerals & ferrous gluconate 9 MG/15 ML oral LIQUID PO SCH (10:00)
--- NOTE | 2018-12-15 10:00 | NUR ---
Patient with Ja-Martin type respirations; Dr. Alvarado at bedside to assess. Orders for Troponin, Lactic acid, blood cultures, pBNP and procalcitonin. Continue to diurese with Lasix; aware of CT results. Begin trickle feed as patient is starting to stool.
--- NOTE | 2018-12-15 11:19 | NUR ---
TF consult: Pt to start trickle TF at 10 mL/hr in conjunction with TPN per MD. Recommendations below for TF advancement to meet 100% of patient's estimated nutrient needs if to transition to TF for sole source of nutrition. [facility] 12/15. Will continue to follow. Rec: 1.Tolerance TPN by using Clinimix E 5/15 at 117ml/hr to run continuously for 24 hours QD; separate 290ml (24ml/hr) 20% intralipids to run for 12 hours QD to provide 58g lipids; this will provide 2808ml total volume, 140 g protein, 2011 total non-protein kcals, 2571 total kcals, 3.02mg/kg/min CHO loading. 2. Trickle TF via NG tube using Vital AF at 10 mL/hr to provide: total volume of 240 mL/day, 288 kcal, 18 g protein, and 174 mL water 3. If okay to advance TF per MD, recommend Vital AF with goal rate of 80 mL/hr to provide: total volume 1920 mL/day, 2304 kcal, 144 g protein, and 1557 mL water 4. Routine bowel care 5. daily wts 6. Prealbumin qM/TH Addendum: 12/15/18 at [address] Amended: Links added.
[2018-12-15 11:20] LABS: POTASSIUM 3.8 MMOL/L (3.5-5.1); TROPONIN I 0.13 NG/ML (0.0-0.05)
[2018-12-15] MEDS ORDERED: acetaminophen 325mg tablet OGT PRN (14:35)
[2018-12-15] MEDS ORDERED: dextrose ORAL solution 15 GM/59 ML bottle OGT PRN ×2 (14:36→14:41)
[2018-12-15] MEDS ORDERED: diatr meglu/diatrizoate 30ml oral sol.-(3 dose) bottle OGT SCH (14:41)
[2018-12-15] MEDS ORDERED: Neutra Phos packet OGT PRN (14:46)
[2018-12-15] MEDS ORDERED: POTASSIUM BICARB 20meq eff tab 20 MEQ TABLET.EFF OGT PRN ×2 (14:48→14:50)
--- NOTE | 2018-12-15 15:00 | NUR ---
SEAN Drain removed per Dr. Renteria order. Pt tolerated well. Dressing placed over site.
--- NOTE | 2018-12-15 18:20 | NUR ---
Problems reprioritized. Patient report given, questions answered & plan of care reviewed with Tomeka GELLER.
--- NOTE | 2018-12-15 18:30 | NUR ---
Patient in room CICU 2013. I have received report from Marques GELLER and had the opportunity to ask questions and assume patient care.
[2018-12-15] MEDS: FAT EMULSION 20% IV SCH (20:32)
[2018-12-15] MEDS: insulin glargine (Lantus) pen - multi-dose SQ SCH (21:00)
--- NOTE | 2018-12-15 22:26 | NUR ---
drain removed on day shift. dressing clean,dry, intact. Addendum: 12/15/18 at 2229 by Tomeka Muñoz RN Amended: Links added.
--- NOTE | 2018-12-15 23:45 | NUR ---
Pt confused at times, continues to have irregular respirations, strong cough but not mobilizing secretions. Liliana notified, orders received for NT suction. NT suction by RT, small amount of thick,creamy,tenacious secretions removed. ABG obtained and reviewed, placed pt on NC at 2L.
[2018-12-15 23:46] LABS: ABG HCO3 25.2 mmol/L (22.0-26.0); ABG OXYGEN SATURATION 93.4 % (95-98); ABG PCO2 (T) 34.3 mmHg (35.0-45.0); ABG PH (T) 7.484 (7.350-7.450); ABG PO2 (T) 64.9 mmHg (83-108); ALLEN'S TEST Positive; FCOHb 0.3 % (0.5-1.5); FMetHb 0.3 % (0.3-1.12); FO2Hb 92.8 % (94-100); PATIENT TEMPERATURE 37.3; TOTAL HEMOGLOBIN 10.2 G/dl (14.0-17.9)
[2018-12-16] VITALS (24 sets, daily range): BP systolic 91–120; BP diastolic 41–57
[2018-12-16] MEDS: piperacillin/tazo 4.5gm/100ml 100 ML IV SCH ×3 (00:36→16:37)
[2018-12-16] MEDS: HYDROmorphone/NS 1 mg/ml CADD 50 ML IV SCH ×13 (01:00→23:22)
[2018-12-16] MEDS: ipratropium/albuterol 3ml nebule NEB SCH ×6 (03:09→22:35)
[2018-12-16 03:22] LABS: BASOPHILS % (AUTO) 0.3 % (0-1); EOSINOPHILS # (AUTO) 0.3 X10'3 (0-0.9); EOSINOPHILS % (AUTO) 2.2 % (0-6); HEMATOCRIT 26.7 % (42.0-52.0); HEMOGLOBIN 8.9 g/dl (14.0-17.9); LYMPHOCYTES # (AUTO) 1.3 X10'3 (1.1-4.8); LYMPHOCYTES % (AUTO) 10.3 % (21-51); MEAN CORPUSCULAR HEMOGLOBIN 30.6 PG (27.0-31.0); MEAN CORPUSCULAR HGB CONC 33.1 g/dL (33.0-36.5); MEAN CORPUSCULAR VOLUME 92.5 FL (78-98); MEAN PLATELET VOLUME 11.1 FL (7.4-10.4); MONOCYTES # (AUTO) 0.6 X10'3 (0-0.9); NEUTROPHILS # (AUTO) 10.3 X10'3 (1.8-7.7); NEUTROPHILS % (AUTO) 82.2 % (42-75); PLATELET COUNT 212 X10'3 (140-440); RED BLOOD COUNT 2.89 X10'6 (4.70-6.10); WHITE BLOOD COUNT 12.6 X10'3 (4.5-11.0)
[2018-12-16 03:40] LABS: ALANINE AMINOTRANSFERASE 37 U/L (12-78); ALBUMIN 1.8 G/DL (3.4-5.0); ALBUMIN/GLOBULIN RATIO 0.5 (1.1-1.5); ALKALINE PHOSPHATASE 120 IU/L (46-116); ANION GAP 5 (8-16); ASPARTATE AMINO TRANSFERASE 13 U/L (10-37); BILIRUBIN,TOTAL 0.6 MG/DL (0.1-1.0); BLOOD UREA NITROGEN 33 MG/DL (7-18); BUN/CREATININE RATIO 40.7 (5.4-32.0); CALCIUM 9.6 MG/DL (8.5-10.1); CHLORIDE 107 MMOL/L (99-107); CREATININE 0.81 MG/DL (0.60-1.10); GLUCOSE 101 MG/DL (70-104); MAGNESIUM 1.6 MG/DL (1.5-2.4); PHOSPHORUS 2.4 MG/DL (2.3-4.5); POTASSIUM 3.5 MMOL/L (3.5-5.1); SODIUM 141 MMOL/L (135-145); TOTAL CARBON DIOXIDE 29.1 MMOL/L (24-32); TOTAL PROTEIN 5.2 G/DL (6.4-8.2); eGFR > 90 ML/MIN
[2018-12-16] MEDS: Trace element-5 inj. 1 ML in AA 5%/cal/electrolyte-TPN/D15W 2,000 ML IV SCH (04:17)
--- NOTE | 2018-12-16 06:20 | NUR ---
Problems reprioritized. Patient report given, questions answered & plan of care reviewed with Oliver GELLER.
--- NOTE | 2018-12-16 06:30 | NUR ---
Patient in room CICU 2013. I have received report from Tomeka GELLER and had the opportunity to ask questions and assume patient care.
[2018-12-16 07:24] LABS: ANISOCYTOSIS 2+; LARGE PLATELETS MODERATE; PLATELET ESTIMATE NORMAL; POLYCHROMASIA 1+; SCHISTOCYTES FEW; TOTAL CELLS COUNTED 100
[2018-12-16] MEDS: furosemide 40mg/4ml inj IV SCH ×2 (08:00→20:00)
[2018-12-16] MEDS: multi-vitamin w/minerals & ferrous gluconate 9 MG/15 ML oral LIQUID OGT SCH (08:00)
[2018-12-16] MEDS: NORepinephrine 8mg/ 250ml NS 250 ML IV SCH ×2 (08:10→18:14)
[2018-12-16] MEDS: pantoprazole 40 MG vial IV SCH (08:45)
[2018-12-16] MEDS: heparin, porcine 5000 units/ml vial SQ SCH ×2 (08:46→20:51)
[2018-12-16] MEDS: furosemide inj 100 ML IV SCH (09:06)
[2018-12-16 14:33] LABS: ALBUMIN 1.7 G/DL (3.4-5.0); ANION GAP 5 (8-16); BLOOD UREA NITROGEN 35 MG/DL (7-18); BUN/CREATININE RATIO 41.2 (5.4-32.0); CALCIUM 9.9 MG/DL (8.5-10.1); CHLORIDE 104 MMOL/L (99-107); CREATININE 0.85 MG/DL (0.60-1.10); GLUCOSE 159 MG/DL (70-104); MAGNESIUM 1.6 MG/DL (1.5-2.4); PHOSPHORUS 2.7 MG/DL (2.3-4.5); POTASSIUM 3.4 MMOL/L (3.5-5.1); SODIUM 138 MMOL/L (135-145); TOTAL CARBON DIOXIDE 29.4 MMOL/L (24-32); eGFR 89 ML/MIN
--- NOTE | 2018-12-16 16:10 | NUR ---
Spoke with Dr. Pineda regarding pt's response to Lasix gtt. BP has been trending on low side MAP near 60. Received instructions to start Levophed gtt if needed. Do not stop Lasix gtt.
[2018-12-16] MEDS: potassium Cl 20mEq/100mL bag 100 ML IV PRN ×2 (17:19→18:23)
--- NOTE | 2018-12-16 18:26 | NUR ---
Problems reprioritized. Patient report given, questions answered & plan of care reviewed with YIMI Herbert.
[2018-12-16 20:38] LABS: ALBUMIN 1.8 G/DL (3.4-5.0); ANION GAP 4 (8-16); BLOOD UREA NITROGEN 35 MG/DL (7-18); BUN/CREATININE RATIO 41.7 (5.4-32.0); CALCIUM 9.5 MG/DL (8.5-10.1); CHLORIDE 105 MMOL/L (99-107); CREATININE 0.84 MG/DL (0.60-1.10); GLUCOSE 126 MG/DL (70-104); MAGNESIUM 1.6 MG/DL (1.5-2.4); PHOSPHORUS 2.7 MG/DL (2.3-4.5); POTASSIUM 3.9 MMOL/L (3.5-5.1); SODIUM 141 MMOL/L (135-145); TOTAL CARBON DIOXIDE 31.9 MMOL/L (24-32); eGFR > 90 ML/MIN
[2018-12-16] MEDS: FAT EMULSION 20% IV SCH (20:51)
[2018-12-16] MEDS: insulin glargine (Lantus) pen - multi-dose SQ SCH (20:51)
[2018-12-17] VITALS (24 sets, daily range): BP systolic 85–130; BP diastolic 37–76
[2018-12-17] MEDS: piperacillin/tazo 4.5gm/100ml 100 ML IV SCH ×3 (00:56→16:28)
[2018-12-17] MEDS: furosemide inj 100 ML IV SCH ×2 (01:00→16:31)
[2018-12-17] MEDS ORDERED: ipratropium/albuterol 3ml nebule ONE (02:37)
[2018-12-17 02:58] LABS: ALANINE AMINOTRANSFERASE 28 U/L (12-78); ALBUMIN 1.7 G/DL (3.4-5.0); ALBUMIN/GLOBULIN RATIO 0.5 (1.1-1.5); ALKALINE PHOSPHATASE 115 IU/L (46-116); ANION GAP 4 (8-16); ASPARTATE AMINO TRANSFERASE 15 U/L (10-37); BILIRUBIN,TOTAL 0.6 MG/DL (0.1-1.0); BLOOD UREA NITROGEN 36 MG/DL (7-18); BUN/CREATININE RATIO 41.4 (5.4-32.0); CALCIUM 9.6 MG/DL (8.5-10.1); CHLORIDE 105 MMOL/L (99-107); CREATININE 0.87 MG/DL (0.60-1.10); GLUCOSE 158 MG/DL (70-104); MAGNESIUM 1.6 MG/DL (1.5-2.4); PHOSPHORUS 2.6 MG/DL (2.3-4.5); POTASSIUM 3.4 MMOL/L (3.5-5.1); PREALBUMIN 7.9 MG/DL (19-36); SODIUM 141 MMOL/L (135-145); TOTAL CARBON DIOXIDE 31.9 MMOL/L (24-32); TOTAL PROTEIN 5.4 G/DL (6.4-8.2); TRIGLYCERIDES 161 MG/DL (20-135); eGFR 87 ML/MIN
[2018-12-17] MEDS: HYDROmorphone/NS 1 mg/ml CADD 50 ML IV SCH ×11 (03:00→23:00)
[2018-12-17 03:10] LABS: BASOPHILS % (AUTO) 0.5 % (0-1); EOSINOPHILS # (AUTO) 0.3 X10'3 (0-0.9); EOSINOPHILS % (AUTO) 3.3 % (0-6); HEMATOCRIT 26.2 % (42.0-52.0); HEMOGLOBIN 8.7 g/dl (14.0-17.9); LYMPHOCYTES # (AUTO) 1.1 X10'3 (1.1-4.8); LYMPHOCYTES % (AUTO) 11.7 % (21-51); MEAN CORPUSCULAR HEMOGLOBIN 30.7 PG (27.0-31.0); MEAN CORPUSCULAR HGB CONC 33.2 g/dL (33.0-36.5); MEAN CORPUSCULAR VOLUME 92.5 FL (78-98); MONOCYTES # (AUTO) 0.6 X10'3 (0-0.9); MONOCYTES % (AUTO) 5.8 % (2-12); NEUTROPHILS # (AUTO) 7.7 X10'3 (1.8-7.7); NEUTROPHILS % (AUTO) 78.7 % (42-75); PLATELET COUNT 284 X10'3 (140-440); RED BLOOD COUNT 2.83 X10'6 (4.70-6.10); RED CELL DISTRIBUTION WIDTH 19.5 % (11.5-14.5); WHITE BLOOD COUNT 9.8 X10'3 (4.5-11.0)
[2018-12-17] MEDS: potassium Cl 20mEq/100mL bag 100 ML IV PRN ×2 (05:06→06:05)
--- NOTE | 2018-12-17 06:30 | NUR ---
Problems reprioritized. Patient report given, questions answered & plan of care reviewed with Kelsi GELLER.
--- NOTE | 2018-12-17 06:58 | NUR ---
Patient in room CICU 2013. I have received report from Piedad GELLER and had the opportunity to ask questions and assume patient care.
[2018-12-17] MEDS: ipratropium/albuterol 3ml nebule NEB SCH ×5 (07:31→22:50)
[2018-12-17] MEDS: furosemide 40mg/4ml inj IV SCH ×2 (08:00→20:00)
[2018-12-17] MEDS: multi-vitamin w/minerals & ferrous gluconate 9 MG/15 ML oral LIQUID OGT SCH (08:00)
[2018-12-17] MEDS: pantoprazole 40 MG vial IV SCH (08:04)
[2018-12-17] MEDS: heparin, porcine 5000 units/ml vial SQ SCH ×2 (08:05→21:03)
[2018-12-17 10:05] LABS: ANISOCYTOSIS 2+; PLATELET ESTIMATE NORMAL; POLYCHROMASIA 1+; TOTAL CELLS COUNTED 100
[2018-12-17 10:06] LABS: LARGE PLATELETS FEW
[2018-12-17 11:54] LABS: ALBUMIN 1.6 G/DL (3.4-5.0); ANION GAP 3 (8-16); BLOOD UREA NITROGEN 41 MG/DL (7-18); BUN/CREATININE RATIO 45.1 (5.4-32.0); CALCIUM 9.9 MG/DL (8.5-10.1); CHLORIDE 102 MMOL/L (99-107); CREATININE 0.91 MG/DL (0.60-1.10); GLUCOSE 152 MG/DL (70-104); MAGNESIUM 1.7 MG/DL (1.5-2.4); PHOSPHORUS 2.6 MG/DL (2.3-4.5); POTASSIUM 3.6 MMOL/L (3.5-5.1); SODIUM 138 MMOL/L (135-145); TOTAL CARBON DIOXIDE 32.9 MMOL/L (24-32); eGFR 83 ML/MIN
[2018-12-17 14:40] LABS: ALBUMIN 1.7 G/DL (3.4-5.0); ANION GAP 6 (8-16); BLOOD UREA NITROGEN 42 MG/DL (7-18); BUN/CREATININE RATIO 42.9 (5.4-32.0); CALCIUM 10.2 MG/DL (8.5-10.1); CHLORIDE 101 MMOL/L (99-107); CREATININE 0.98 MG/DL (0.60-1.10); GLUCOSE 147 MG/DL (70-104); MAGNESIUM 1.8 MG/DL (1.5-2.4); PHOSPHORUS 2.7 MG/DL (2.3-4.5); POTASSIUM 3.8 MMOL/L (3.5-5.1); SODIUM 139 MMOL/L (135-145); TOTAL CARBON DIOXIDE 32.2 MMOL/L (24-32); eGFR 76 ML/MIN
--- NOTE | 2018-12-17 15:50 | NUR ---
F/U (12/17): Pt is awake, still has respiratory distress on and off, diuresed very well noted per MD. Pt had pulmonary edema on CT scan 2 days ago per MD. Pt still coughs a lot per bedside RN. Will continue both TPN and TF, as discussed with lap machine tender during round,increase trickle TF by 10ml/hr Q8 to goal rate of 30ml/hr. RD discussed new recommendations with RN. Will continue to monitor. Rec: 1.TPN by using Clinimix E 5/15 at 117ml/hr to run continuously for 24 hours QD; separate 290ml (24ml/hr) 20% intralipids to run for 12 hours QD to provide 58g lipids; this will provide 2808ml total volume, 140 g protein, 2011 total non-protein kcals, 2571 total kcals, 3.02mg/kg/min CHO loading. 2. Trickle TF via NG tube using Vital AF at 30 mL/hr per MD; to provide: total volume of 720 mL/day, 864 kcal, 54 g protein, and 583 mL water 3. If okay to advance TF per MD, recommend Vital AF with goal rate of 80 mL/hr to provide: total volume 1920 mL/day, 2304 kcal, 144 g protein, and 1557 mL water 4. Routine bowel care 5. daily wts 6. Prealbumin, TG qM/TH Addendum: 12/17/18 at [address] Amended: Links added. Addendum: 12/17/18 at [address] SETH [place]
[2018-12-17] MEDS: Trace element-5 inj. 1 ML in AA 5%/cal/electrolyte-TPN/D15W 2,000 ML IV SCH (16:29)
--- NOTE | 2018-12-17 18:19 | NUR ---
Report given to YIMI Herbert and CARINA Raza
[2018-12-17] MEDS: insulin glargine (Lantus) pen - multi-dose SQ SCH (21:00)
[2018-12-17] MEDS: FAT EMULSION 20% IV SCH (21:06)
[2018-12-17 21:16] LABS: ALBUMIN 1.7 G/DL (3.4-5.0); ANION GAP 4 (8-16); BLOOD UREA NITROGEN 47 MG/DL (7-18); BUN/CREATININE RATIO 45.2 (5.4-32.0); CALCIUM 10.2 MG/DL (8.5-10.1); CHLORIDE 103 MMOL/L (99-107); CREATININE 1.04 MG/DL (0.60-1.10); GLUCOSE 128 MG/DL (70-104); MAGNESIUM 1.9 MG/DL (1.5-2.4); PHOSPHORUS 3.2 MG/DL (2.3-4.5); POTASSIUM 3.5 MMOL/L (3.5-5.1); SODIUM 140 MMOL/L (135-145); TOTAL CARBON DIOXIDE 32.6 MMOL/L (24-32); eGFR 71 ML/MIN
[2018-12-18] VITALS (23 sets, daily range): BP systolic 84–114; BP diastolic 35–58
[2018-12-18] MEDS: piperacillin/tazo 4.5gm/100ml 100 ML IV SCH ×4 (00:03→23:58)
[2018-12-18] MEDS: HYDROmorphone/NS 1 mg/ml CADD 50 ML IV SCH ×8 (01:00→14:54)
[2018-12-18] MEDS: ipratropium/albuterol 3ml nebule NEB SCH ×6 (03:06→23:01)
[2018-12-18 03:38] LABS: BASOPHILS # (AUTO) 0.1 X10'3 (0-0.2); BASOPHILS % (AUTO) 0.9 % (0-1); EOSINOPHILS # (AUTO) 0.3 X10'3 (0-0.9); EOSINOPHILS % (AUTO) 4.2 % (0-6); HEMATOCRIT 26.3 % (42.0-52.0); HEMOGLOBIN 8.7 g/dl (14.0-17.9); LYMPHOCYTES % (AUTO) 11.9 % (21-51); MEAN CORPUSCULAR HEMOGLOBIN 30.8 PG (27.0-31.0); MEAN CORPUSCULAR VOLUME 93.5 FL (78-98); MONOCYTES # (AUTO) 0.5 X10'3 (0-0.9); MONOCYTES % (AUTO) 6.7 % (2-12); NEUTROPHILS # (AUTO) 6.2 X10'3 (1.8-7.7); NEUTROPHILS % (AUTO) 76.3 % (42-75); PLATELET COUNT 395 X10'3 (140-440); RED BLOOD COUNT 2.81 X10'6 (4.70-6.10); RED CELL DISTRIBUTION WIDTH 19.2 % (11.5-14.5); WHITE BLOOD COUNT 8.2 X10'3 (4.5-11.0)
[2018-12-18 03:49] LABS: UREA NITROGEN 24HR,URINE 13.9 GM/24HR (7-20)
[2018-12-18 03:51] LABS: ALANINE AMINOTRANSFERASE 24 U/L (12-78); ALBUMIN 1.7 G/DL (3.4-5.0); ALBUMIN/GLOBULIN RATIO 0.4 (1.1-1.5); ALKALINE PHOSPHATASE 113 IU/L (46-116); ANION GAP 4 (8-16); ASPARTATE AMINO TRANSFERASE 15 U/L (10-37); BILIRUBIN,TOTAL 0.5 MG/DL (0.1-1.0); BLOOD UREA NITROGEN 50 MG/DL (7-18); CALCIUM 10.2 MG/DL (8.5-10.1); CHLORIDE 102 MMOL/L (99-107); GLUCOSE 145 MG/DL (70-104); MAGNESIUM 1.9 MG/DL (1.5-2.4); PHOSPHORUS 3.3 MG/DL (2.3-4.5); POTASSIUM 3.4 MMOL/L (3.5-5.1); SODIUM 139 MMOL/L (135-145); TOTAL CARBON DIOXIDE 32.6 MMOL/L (24-32); TOTAL PROTEIN 5.7 G/DL (6.4-8.2); eGFR 74 ML/MIN
[2018-12-18 04:02] LABS: ANISOCYTOSIS 2+; LARGE PLATELETS MODERATE; PLATELET ESTIMATE NORMAL; POLYCHROMASIA FEW
[2018-12-18 04:09] LABS: TOTAL CELLS COUNTED 100
--- NOTE | 2018-12-18 06:30 | NUR ---
Patient in room CICU 2013. I have received report from Piedad GELLER and had the opportunity to ask questions and assume patient care.
--- NOTE | 2018-12-18 06:35 | NUR ---
Problems reprioritized. Patient report given, questions answered & plan of care reviewed with Eric Spring RN.
[2018-12-18] MEDS: pantoprazole 40 MG vial IV SCH (07:36)
[2018-12-18] MEDS: heparin, porcine 5000 units/ml vial SQ SCH ×2 (07:37→20:04)
[2018-12-18] MEDS: potassium Cl 20mEq/100mL bag 100 ML IV PRN ×2 (07:55→11:06)
[2018-12-18] MEDS: multi-vitamin w/minerals & ferrous gluconate 9 MG/15 ML oral LIQUID OGT SCH (07:56)
[2018-12-18] MEDS: furosemide 40mg/4ml inj IV SCH (08:00)
[2018-12-18] MEDS: furosemide inj 100 ML IV SCH (10:20)
[2018-12-18] MEDS: Trace element-5 inj. 1 ML in AA 5%/cal/electrolyte-TPN/D15W 2,000 ML IV SCH ×2 (10:29→11:30)
[2018-12-18] MEDS ORDERED: LORazepam 2 mg/ml vial IV ONE (11:05)
[2018-12-18] MEDS ORDERED: HYDROmorphone 1 mg/ml syringe IV PRN (15:00)
--- NOTE | 2018-12-18 15:09 | NUR ---
TF consult (12/18): Per ok'd to increase TF rate. Pt is awake but confused, expected to have MRI done today per bedside RN. Discussed with MD at rounds, TPN will run at half rate, lipids will also be running at half rate. TF will increase to goal rate by 20ml q8. Water flushes 200ml q4 discussed with . LBM 12/16. Will continue to monitor. Recommendations: 1.TPN by using Clinimix E 5/15 at 58ml/hr to run continuously for 24 hours QD; separate 145ml (12ml/hr) 20% intralipids to run for 12 hours QD to provide 29g lipids; this will provide 1404ml total volume, 70g protein, 1006 total non-protein kcals, 1286 total kcals, 3.02mg/kg/min CHO loading. 2. Tolerate NGTF Vital AF with goal rate of 80mL/hr to provide: total volume 1920 mL/day, 2304 kcal, 144 g protein, and 1557 mL water 3. Additional water flushes 200ml q4 4. Routine bowel care 5. daily wts; Prealbumin, TG qM/TH Addendum: 12/18/18 at [address] Amended: Links added. Addendum: 12/19/18 at [address] SETH agree with epidemiology intern note
[2018-12-18] MEDS ORDERED: iohexol 300mg/ml 100ml inj. ONE (16:25)
--- NOTE | 2018-12-18 17:00 | NUR ---
Patient connected to transport monitor to go to CT, BP information did not transfer unable to record 1600 BP all other vitals transcribed. Will continue to monitor.
--- NOTE | 2018-12-18 18:27 | NUR ---
Problems reprioritized. Patient report given, questions answered & plan of care reviewed with Dave GELLER.
--- NOTE | 2018-12-18 18:30 | NUR ---
assumed care from Hima GELLER no questions or concerns after assuming care
[2018-12-18] MEDS ORDERED: FAT EMULSION 20% IV SCH (20:00)
[2018-12-18] MEDS: insulin glargine (Lantus) pen - multi-dose SQ SCH (21:00)
--- NOTE | 2018-12-18 21:49 | NUR ---
patient in bed eyes closed rr even slightly labored no observable s/s of acute stress at this time
[2018-12-19] VITALS (15 sets, daily range): BP systolic 90–130; BP diastolic 38–61
--- NOTE | 2018-12-19 01:49 | NUR ---
PATIENT APPEARS TO BE RESTING COMFORTABLY IN SUPINE POSITION COVERS ON EYES CLOSED RR EVEN UN LABORED NO OBSERVABLE S/S OF ACUTE STRESS AT THIS TIME
[2018-12-19] MEDS: ipratropium/albuterol 3ml nebule NEB SCH ×2 (02:38→11:07)
[2018-12-19 03:03] LABS: BASOPHILS % (AUTO) 0.3 % (0-1); EOSINOPHILS # (AUTO) 0.5 X10'3 (0-0.9); EOSINOPHILS % (AUTO) 5.3 % (0-6); HEMATOCRIT 25.8 % (42.0-52.0); HEMOGLOBIN 8.4 g/dl (14.0-17.9); LYMPHOCYTES # (AUTO) 0.9 X10'3 (1.1-4.8); LYMPHOCYTES % (AUTO) 9.9 % (21-51); MEAN CORPUSCULAR HEMOGLOBIN 30.5 PG (27.0-31.0); MEAN CORPUSCULAR HGB CONC 32.7 g/dL (33.0-36.5); MEAN CORPUSCULAR VOLUME 93.4 FL (78-98); MEAN PLATELET VOLUME 10.3 FL (7.4-10.4); MONOCYTES # (AUTO) 0.5 X10'3 (0-0.9); MONOCYTES % (AUTO) 5.1 % (2-12); NEUTROPHILS # (AUTO) 7.4 X10'3 (1.8-7.7); NEUTROPHILS % (AUTO) 79.4 % (42-75); PLATELET COUNT 517 X10'3 (140-440); RED BLOOD COUNT 2.76 X10'6 (4.70-6.10); RED CELL DISTRIBUTION WIDTH 19.3 % (11.5-14.5); WHITE BLOOD COUNT 9.3 X10'3 (4.5-11.0)
[2018-12-19 03:18] LABS: ALANINE AMINOTRANSFERASE 23 U/L (12-78); ALBUMIN 1.6 G/DL (3.4-5.0); ALBUMIN/GLOBULIN RATIO 0.4 (1.1-1.5); ALKALINE PHOSPHATASE 111 IU/L (46-116); ANION GAP 3 (8-16); ASPARTATE AMINO TRANSFERASE 15 U/L (10-37); BILIRUBIN,TOTAL 0.4 MG/DL (0.1-1.0); BLOOD UREA NITROGEN 54 MG/DL (7-18); BUN/CREATININE RATIO 55.1 (5.4-32.0); CALCIUM 9.9 MG/DL (8.5-10.1); CHLORIDE 103 MMOL/L (99-107); CREATININE 0.98 MG/DL (0.60-1.10); GLUCOSE 127 MG/DL (70-104); MAGNESIUM 2.2 MG/DL (1.5-2.4); PHOSPHORUS 3.4 MG/DL (2.3-4.5); POTASSIUM 3.7 MMOL/L (3.5-5.1); SODIUM 139 MMOL/L (135-145); TOTAL CARBON DIOXIDE 33.1 MMOL/L (24-32); TOTAL PROTEIN 5.9 G/DL (6.4-8.2); eGFR 76 ML/MIN
--- NOTE | 2018-12-19 04:29 | NUR ---
PATIENT SUPINE IN BED EYES CLOSED RR NOT EVEN UN LABORED TIMES OF APNEA, PATIENT HAS NO OBSERVABLE S/S OF ACUTE STRESS AT THIS TIME
[2018-12-19 04:47] LABS: ANISOCYTOSIS 2+; PLATELET ESTIMATE INCREASED; TOTAL CELLS COUNTED 100
[2018-12-19 04:48] LABS: POLYCHROMASIA FEW
[2018-12-19 04:54] LABS: GIANT PLATELET FEW; LARGE PLATELETS FEW
--- NOTE | 2018-12-19 05:22 | NUR ---
MEDI TECH WILL BE GOING DOWN AT 0600 HRS PRINTED HNP AND LABS FOR DAY SHIFT RN
[2018-12-19] MEDS: pantoprazole 40 MG vial IV SCH (08:49)
[2018-12-19] MEDS: heparin, porcine 5000 units/ml vial SQ SCH (08:50)
[2018-12-19] MEDS: piperacillin/tazo 4.5gm/100ml 100 ML IV SCH (08:50)
[2018-12-19] MEDS: multi-vitamin w/minerals & ferrous gluconate 9 MG/15 ML oral LIQUID OGT SCH (08:51)
[2018-12-19] MEDS: Trace element-5 inj. 1 ML in AA 5%/cal/electrolyte-TPN/D15W 2,000 ML IV SCH (11:43)
--- NOTE | 2018-12-19 15:33 | NUR ---
Report given to Debbie Valencia RN at [facility]; questions answered and RN agreed to assume responsibility for pt. pt.'s family contacted of transfer, and transfer packet given to [facility] transporter.
== END 2018-12-19 14:58 | DRG 853 ==
LOC: ER 12:12 → ED HOLD 15:13 → CICU 2S 16:01
PROVIDERS: ADMIT Internal Medicine Critical Care Medicine; ATTEND Internal Medicine Critical Care Medicine
PROC: 30233N1 Transfusion of Nonautologous Red Blood Cells into Peripheral Vein, Percutaneous Approach (ICD-10-PCS; 2018-12-06)
PROC: 30233N1 Transfusion of Nonautologous Red Blood Cells into Peripheral Vein, Percutaneous Approach (ICD-10-PCS; 2018-12-06)
PROC: 03HY32Z Insertion of Monitoring Device into Upper Artery, Percutaneous Approach (ICD-10-PCS; 2018-12-06)
PROC: 5A1945Z Respiratory Ventilation, 24-96 Consecutive Hours (ICD-10-PCS; 2018-12-06)
PROC: 0BH17EZ Insertion of Endotracheal Airway into Trachea, Via Natural or Artificial Opening (ICD-10-PCS; 2018-12-06)
PROC: 0FT40ZZ Resection of Gallbladder, Open Approach (ICD-10-PCS; principal; 2018-12-06 19:50)
PROC: 0WPG0YZ Removal of Other Device from Peritoneal Cavity, Open Approach (ICD-10-PCS; 2018-12-08)
PROC: 30233R1 Transfusion of Nonautologous Platelets into Peripheral Vein, Percutaneous Approach (ICD-10-PCS; 2018-12-10)
PROC: CD171ZZ Planar Nuclear Medicine Imaging of Gastrointestinal Tract using Technetium 99m (Tc-99m) (ICD-10-PCS; 2018-12-10)
PROC: BW251ZZ Computerized Tomography (CT Scan) of Chest, Abdomen and Pelvis using Low Osmolar Contrast (ICD-10-PCS; 2018-12-14)
PROC: 02HV33Z Insertion of Infusion Device into Superior Vena Cava, Percutaneous Approach (ICD-10-PCS; 2018-12-17)
PROC: 4A02X4A Measurement of Cardiac Electrical Activity, Guidance, External Approach (ICD-10-PCS; 2018-12-17)
PROC: B548ZZA Ultrasonography of Superior Vena Cava, Guidance (ICD-10-PCS; 2018-12-17)
DX: A41.9 Sepsis, unspecified organism (principal); I21.4 Non-ST elevation (NSTEMI) myocardial infarction; E43 Unspecified severe protein-calorie malnutrition; R65.21 Severe sepsis with septic shock; K65.9 Peritonitis, unspecified; J96.01 Acute respiratory failure with hypoxia; G93.41 Metabolic encephalopathy; J69.0 Pneumonitis due to inhalation of food and vomit; N39.0 Urinary tract infection, site not specified; K56.609 Unspecified intestinal obstruction, unspecified as to partial versus complete obstruction; N17.9 Acute kidney failure, unspecified; K56.7 Ileus, unspecified; R10.0 Acute abdomen; D64.9 Anemia, unspecified; E66.01 Morbid (severe) obesity due to excess calories; D69.6 Thrombocytopenia, unspecified; F17.220 Nicotine dependence, chewing tobacco, uncomplicated; K82.A1 Gangrene of gallbladder in cholecystitis; F03.90 Unspecified dementia, unspecified severity, without behavioral disturbance, psychotic disturbance, mood disturbance, and anxiety; I25.10 Atherosclerotic heart disease of native coronary artery without angina pectoris; I25.2 Old myocardial infarction; Z79.02 Long term (current) use of antithrombotics/antiplatelets; Z87.01 Personal history of pneumonia (recurrent); Z79.82 Long term (current) use of aspirin; Y92.89 Other specified places as the place of occurrence of the external cause; Z68.24 Body mass index [BMI] 24.0-24.9, adult; R58 Hemorrhage, not elsewhere classified
CPT/HCPCS: 36415; 36569; 36600; 70470; 71045; 71260; 74018; 74176; 74177; 76010; 76937; 78278; 80047; 80048; 80053; 80069; 81001; 82140; 82150; 82803; 82948; 83605; 83690; 83735; 83880; 84100; 84132; 84134; 84145; 84443; 84478; 84484; 84560; 85018; 85025; 85027; 85610; 85730; 86140; 86885; 86900; 86901; 86920; 87040; 87070; 87075; 87077; 87081; 87088; 87186; 88304; 92508; 92616; 93005; 93306; 94002; 94003; 94640; 94668; 94760; 96365; 97110; 97161; 97164; 97530; 97535; 99291; A4215; A4618; A6253; A6258; A6407; A6449; A7000; A7526; A9560; C9113; G0378; J1170; J1442; J1580; J1644; J1815; J1940; J2020; J2060; J2250; J2270; J2543; J3010; J3475; J3480; J3490; J7030; J7040; J7060; J7070; J7120; P9016; P9035; P9045; P9047; Q2037; Q9963; Q9967

== ENCOUNTER 2018-12-26 21:05 | Inpatient (IN) | payer MEDICARE, OTHER ==
[~2018-12-26] VITALS: Ht 182.9 cm; Wt 92.1 kg
[~2018-12-26 21:05] MED LIST: ASPI-611 PO; ATOR40TA71 PO; CHLO473M3 PO; CLOP75TA35 PO; FAMO20TA8 PO; FURO40SO4 PO; GUAI600T45 PO; LACT1CAP65 PO; METO25TA6 PO; MYL80T PO; NICO-631 TD; etomidate 2mg/ml inj. ONE; rocuronium 10mg/ml inj IV ONE
[2018-12-26] MEDS ORDERED: propofol 1000mg/100ml bottle 100 ML IV ONE (21:20)
[2018-12-26 21:31] LABS: CLARITY,URINE CLOUDY (Clear); COLOR,URINE YELLOW (Yellow); GLUCOSE, URINE NEGATIVE (Neg); KETONES,URINE NEGATIVE (Neg); LEUKOCYTE ESTERASE ,URINE TRACE (Neg); NITRITES, URINE POSITIVE (Neg); OCCULT BLOOD,URINE LARGE (Neg); PROTEIN,URINE 100 mg/dl (Neg); UA COLLECTION TYPE STRAIGHT CATH; UROBILINOGEN,URINE 0.2 E.U/dL (0.2-1.0)
[2018-12-26 21:34] LABS: BASOPHILS # (AUTO) 0.2 X10'3 (0-0.2); EOSINOPHILS % (AUTO) 0.1 % (0-6); HEMOGLOBIN 8.7 g/dl (14.0-17.9)
[2018-12-26 21:36] LABS: HEMATOCRIT 27.2 % (42.0-52.0); LYMPHOCYTES # (AUTO) 3.9 X10'3 (1.1-4.8); LYMPHOCYTES % (AUTO) 23.9 % (21-51); MEAN CORPUSCULAR HEMOGLOBIN 29.9 PG (27.0-31.0); MEAN CORPUSCULAR HGB CONC 32.1 g/dL (33.0-36.5); MEAN PLATELET VOLUME 9.3 FL (7.4-10.4); MONOCYTES # (AUTO) 1.4 X10'3 (0-0.9); MONOCYTES % (AUTO) 8.6 % (2-12); NEUTROPHILS # (AUTO) 10.7 X10'3 (1.8-7.7); NEUTROPHILS % (AUTO) 66.4 % (42-75); PLATELET COUNT 636 X10'3 (140-440); RED BLOOD COUNT 2.92 X10'6 (4.70-6.10); RED CELL DISTRIBUTION WIDTH 19.5 % (11.5-14.5); WHITE BLOOD COUNT 16.2 X10'3 (4.5-11.0)
[2018-12-26 21:39] LABS: CAL OXALATE CRYSTALS FEW /HPF (NEGATIVE); SQUAMOUS EPITHELIAL CELL,UR FEW /LPF (FEW)
[2018-12-26 21:40] LABS: BACTERIA,URINE 1+ /HPF (Neg); COARSE GRANULAR CAST 0-3 /LPF (NEGATIVE); RBC,URINE 20-50 /HPF (0-2); WBC,URINE 0-4 /HPF (0-4)
[2018-12-26] MEDS ORDERED: normal saline 1000ML IV soln IV ONE (21:40)
[2018-12-26 21:47] LABS: ALANINE AMINOTRANSFERASE 30 U/L (12-78); ALBUMIN 1.6 G/DL (3.4-5.0); ALBUMIN/GLOBULIN RATIO 0.3 (1.1-1.5); ALKALINE PHOSPHATASE 133 IU/L (46-116); ANION GAP 8 (8-16); ASPARTATE AMINO TRANSFERASE 29 U/L (10-37); BILIRUBIN,TOTAL 0.4 MG/DL (0.1-1.0); BLOOD UREA NITROGEN 38 MG/DL (7-18); BUN/CREATININE RATIO 38.8 (5.4-32.0); CALCIUM 10.4 MG/DL (8.5-10.1); CHLORIDE 111 MMOL/L (99-107); CREATININE 0.98 MG/DL (0.60-1.10); GLUCOSE 95 MG/DL (70-104); POTASSIUM 3.8 MMOL/L (3.5-5.1); SODIUM 145 MMOL/L (135-145); TOTAL CARBON DIOXIDE 26.5 MMOL/L (24-32); eGFR 76 ML/MIN
[2018-12-26 21:48] LABS: PARTIAL THROMBOPLASTIN TIME 32 SECONDS (22-32)
[2018-12-26 21:56] LABS: ABG BASE EXCESS 0.7 mmol/L (-2.0-3.0); ABG OXYGEN SATURATION 98.1 % (95-98); ABG PCO2 (T) 39.2 mmHg (35.0-45.0); ABG PH (T) 7.424 (7.350-7.450); ABG PO2 (T) 122.5 mmHg (83-108); ALLEN'S TEST Positive; FCOHb 0.3 % (0.5-1.5); FMetHb 0.2 % (0.3-1.12); FO2Hb 97.6 % (94-100); MINUTE VOLUME 9 L/min; PATIENT TEMPERATURE 37.4; PEEP 5 cm H2O; RESPIRATORY RATE 16 b/min; RESPIRATORY RATE (OBSERVED) 18 b/min; TIDAL VOLUME 500 mL; TOTAL HEMOGLOBIN 9.4 G/dl (14.0-17.9)
[2018-12-26] MEDS ORDERED: ESOM40CA49 PO (22:51)
[2018-12-26] MEDS ORDERED: FAMO-128 PO (22:51)
[2018-12-26] MEDS ORDERED: ATRIN INH (22:51)
[2018-12-26] MEDS ORDERED: MYL80T PO (22:51)
[2018-12-26] MEDS ORDERED: DOCU100C41 PO (22:51)
[2018-12-26] MEDS ORDERED: [UNRECOGNIZED DRUG - CODE] (22:51)
[2018-12-26] MEDS ORDERED: ALBU8HFA PO (22:51)
[2018-12-26] MEDS ORDERED: ACET-1008 PO (22:51)
[2018-12-26] MEDS ORDERED: VANC1VIA21 IV (22:51)
[2018-12-26] MEDS ORDERED: POLY17PO10 PO (22:51)
[2018-12-26] MEDS ORDERED: CEFE2FRO IV (22:51)
[2018-12-26] MEDS ORDERED: AMYL1CAP54 PO (22:51)
[2018-12-26] MEDS ORDERED: albuterol 2.5 MG/3 ML nebule NEB PRN (22:55)
[2018-12-26] MEDS ORDERED: acetaminophen 325mg tablet PO PRN ×3 (22:55→23:10)
[2018-12-26] MEDS ORDERED: ondansetron/PF 4mg/2ml inj IV PRN (22:55)
[2018-12-26 23:00] LABS: PLATELET ESTIMATE INCREASED
[2018-12-26] MEDS: ipratropium/albuterol 3ml nebule NEB SCH (23:00)
[2018-12-26 23:01] LABS: ANISOCYTOSIS 2+; POLYCHROMASIA 1+; SCHISTOCYTES FEW
[2018-12-26] MEDS ORDERED: simethicone 80mg chew tab PO PRN (23:10)
[2018-12-26 23:27] LABS: LIPASE 57 U/L (73-393); MAGNESIUM 1.9 MG/DL (1.5-2.4); PHOSPHORUS 2.3 MG/DL (2.3-4.5)
[2018-12-26] MEDS ORDERED: VANCOmycin 1250MG/NS 250ml Bag 250 ML IV SCH (23:47)
[2018-12-27] VITALS (23 sets, daily range): BP systolic 94–116; BP diastolic 44–56
[2018-12-27] MEDS ORDERED: cefepime 2,000MG/100 ML NS ADD-VANTAGE IV SCH
[2018-12-27] MEDS: CEFEPIME 2 GM in NS 100ml IV.SOLN 100 ML IV SCH ×3 (01:37→20:00)
[2018-12-27] MEDS: dextrose 5%-1/2 normal saline 1,000 ML IV SCH ×2 (01:39→13:16)
[2018-12-27] MEDS: NORepinephrine 8mg/ 250ml NS 250 ML IV PRN (02:15)
[2018-12-27] MEDS: ipratropium/albuterol 3ml nebule NEB SCH ×6 (03:24→22:34)
[2018-12-27 03:27] LABS: BASOPHILS # (AUTO) 0.1 X10'3 (0-0.2); BASOPHILS % (AUTO) 1.2 % (0-1); EOSINOPHILS % (AUTO) 0 % (0-6); HEMATOCRIT 22.6 % (42.0-52.0); HEMOGLOBIN 7.3 g/dl (14.0-17.9); LYMPHOCYTES # (AUTO) 2.6 X10'3 (1.1-4.8); LYMPHOCYTES % (AUTO) 20.5 % (21-51); MEAN CORPUSCULAR HEMOGLOBIN 30.6 PG (27.0-31.0); MEAN CORPUSCULAR HGB CONC 32.2 g/dL (33.0-36.5); MEAN PLATELET VOLUME 9.1 FL (7.4-10.4); MONOCYTES # (AUTO) 1.1 X10'3 (0-0.9); MONOCYTES % (AUTO) 8.5 % (2-12); NEUTROPHILS # (AUTO) 8.9 X10'3 (1.8-7.7); NEUTROPHILS % (AUTO) 69.8 % (42-75); PLATELET COUNT 560 X10'3 (140-440); RED BLOOD COUNT 2.38 X10'6 (4.70-6.10); RED CELL DISTRIBUTION WIDTH 19.3 % (11.5-14.5); WHITE BLOOD COUNT 12.7 X10'3 (4.5-11.0)
[2018-12-27 03:38] LABS: PARTIAL THROMBOPLASTIN TIME 32 SECONDS (22-32)
[2018-12-27 03:41] LABS: ABG BASE EXCESS -1.1 mmol/L (-2.0-3.0); ABG HCO3 22.7 mmol/L (22.0-26.0); ABG OXYGEN SATURATION 98.3 % (95-98); ABG PCO2 (T) 35.9 mmHg (35.0-45.0); ABG PH (T) 7.423 (7.350-7.450); ABG PO2 (T) 127.9 mmHg (83-108); ALLEN'S TEST Positive; FCOHb 0.3 % (0.5-1.5); FMetHb 0.1 % (0.3-1.12); FO2Hb 97.9 % (94-100); MINUTE VOLUME 10 L/min; PATIENT TEMPERATURE 37.7; PEEP 5 cm H2O; RESPIRATORY RATE 16 b/min; RESPIRATORY RATE (OBSERVED) 20 b/min; TIDAL VOLUME 500 mL; TOTAL HEMOGLOBIN 10.6 G/dl (14.0-17.9)
[2018-12-27 03:45] LABS: ALANINE AMINOTRANSFERASE 27 U/L (12-78); ALBUMIN 1.3 G/DL (3.4-5.0); ALBUMIN/GLOBULIN RATIO 0.3 (1.1-1.5); ALKALINE PHOSPHATASE 115 IU/L (46-116); ANION GAP 3 (8-16); ASPARTATE AMINO TRANSFERASE 27 U/L (10-37); BILIRUBIN,TOTAL 0.4 MG/DL (0.1-1.0); BLOOD UREA NITROGEN 39 MG/DL (7-18); BUN/CREATININE RATIO 41.9 (5.4-32.0); CALCIUM 9.5 MG/DL (8.5-10.1); CHLORIDE 115 MMOL/L (99-107); CREATININE 0.93 MG/DL (0.60-1.10); GLUCOSE 105 MG/DL (70-104); LIPASE < 50 U/L (73-393); MAGNESIUM 1.8 MG/DL (1.5-2.4); PHOSPHORUS 2.9 MG/DL (2.3-4.5); POTASSIUM 3.4 MMOL/L (3.5-5.1); SODIUM 147 MMOL/L (135-145); TOTAL CARBON DIOXIDE 28.7 MMOL/L (24-32); TOTAL PROTEIN 6.1 G/DL (6.4-8.2); eGFR 80 ML/MIN
[2018-12-27 03:46] LABS: PLATELET ESTIMATE INCREASED
[2018-12-27 03:47] LABS: ACANTHOCYTES FEW; ANISOCYTOSIS 2+; BURR CELLS FEW; POLYCHROMASIA 2+; SCHISTOCYTES FEW
[2018-12-27 03:48] LABS: HYPOCHROMASIA 1+
[2018-12-27] MEDS ORDERED: simethicone 80mg chew tab PO SCH (08:00)
[2018-12-27] MEDS ORDERED: atorvastatin 20mg tablet PO SCH (08:00)
[2018-12-27] MEDS ORDERED: famotidine 20mg tablet PO SCH (08:00)
[2018-12-27] MEDS ORDERED: clopidogrel 75mg tablet PO SCH (08:00)
[2018-12-27] MEDS ORDERED: aspirin 81mg tablet.DR PO SCH (08:00)
[2018-12-27] MEDS ORDERED: lactobacillus rhamnosus 10,000 MMU CELLS/CAPSULE PO SCH (08:00)
[2018-12-27] MEDS: polyethylene glycol 3350 17gm powd pack PO SCH ×3 (08:00→15:56)
[2018-12-27] MEDS: pantoprazole 40 MG vial IV SCH (09:21)
[2018-12-27] MEDS: midazolam 100mg in NS 100ml 100 ML IV PRN (10:59)
[2018-12-27] MEDS: FENTANYL-0.9 % NACL/PF 100 ML IV PRN (11:00)
[2018-12-27] MEDS: metoclopramide 5 mg/ml inj IV SCH ×2 (12:41→20:00)
[2018-12-27] MEDS: methylnaltrexone br 12mg/0.6ml inj***SubQ only SQ SCH (12:42)
[2018-12-27] MEDS: VANCOmycin 1250MG/NS 250ml Bag 250 ML IV SCH (13:24)
--- NOTE | 2018-12-27 15:29 | NUR ---
Faust removed and new 16 malawian faust placed. Pt tolerated procedure well.
[2018-12-27] MEDS: aspirin 81mg tab.chew CORPAK SCH (15:56)
--- NOTE | 2018-12-27 16:02 | NUR ---
Initial assessment(12/27): Pt just recently discharged 12/19 with s/p open nick.While at [facility], had concern for possible aspiration PNA while receiving TF via corpok and on bipap.Pt admitted with acute respiratory failure, sepsis and PNA and was intubated in ED. To start TF per MD at critical care rounds, no consult at this time.Pending verification of appropriate corpak location in order to start TF, see recommendations below.Noted of Arjun 10 with medial abdomen surgical wound and medial sacrum abrasion, warranting increase protein needs. LBM 12/26, receiving routine Reglan and Relistor.Will continue to monitor. Recommendations: 1.Once Corpak confirmed, recommend Vital AF with goal rate of 80ml/hr to provide:total volume 1920ml/day,2304 kcal,144g protein, and 1557ml water 2.Additional water flushes 200ml Q4H 3.Daily wts;Prealbumin qM/Th 4.Bowel care routine Addendum: 12/27/18 at [address] Amended: Links added. Addendum: 12/27/18 at [address] I have reviewed and agree with note by Grizzlyman. Ade Langford, RD
--- NOTE | 2018-12-27 16:09 | NUR ---
TF consult (12/27): Corpak placement confirmed, see TF recommendation below. Initial assessment(12/27): Pt just recently discharged 12/19 with s/p open nick.While at [facility], had concern for possible aspiration PNA while receiving TF via corpok and on bipap.Pt admitted with acute respiratory failure, sepsis and PNA and was intubated in ED. To start TF per MD at critical care rounds, no consult at this time.Pending verification of appropriate corpak location in order to start TF, see recommendations below.Noted of Arjun 10 with medial abdomen surgical wound and medial sacrum abrasion, warranting increase protein needs. LBM 12/26, receiving routine Reglan and Relistor.Will continue to monitor. Recommendations: 1.Corpak using Vital AF with goal rate of 80ml/hr to provide:total volume 1920ml/day,2304 kcal,144g protein, and 1557ml water 2.Additional water flushes 200ml Q4H 3.Daily wts;Prealbumin qM/Th 4.Bowel care routine Addendum: 12/27/18 at [address] Amended: Links added. Addendum: 12/27/18 at [address] I have reviewed and agree with note by Order Schedule Clerk. Ade Langford RD
[2018-12-27] MEDS: potassium Cl 20mEq/100mL bag 100 ML IV PRN (16:22)
[2018-12-28] VITALS (23 sets, daily range): BP systolic 92–124; BP diastolic 44–63
[2018-12-28] MEDS: polyethylene glycol 3350 17gm powd pack PO SCH
[2018-12-28] MEDS ORDERED: acetaminophen 325mg tablet CORPAK PRN ×3 (01:25→01:26)
[2018-12-28] MEDS ORDERED: clopidogrel 75mg tablet CORPAK SCH (01:27)
[2018-12-28] MEDS: dextrose 5%-1/2 normal saline 1,000 ML IV SCH (01:52)
[2018-12-28] MEDS: VANCOmycin 1250MG/NS 250ml Bag 250 ML IV SCH ×2 (01:52→19:28)
[2018-12-28] MEDS: metoclopramide 5 mg/ml inj IV SCH ×4 (02:00→19:59)
[2018-12-28] MEDS ORDERED: simethicone 80mg chew tab CORPAK PRN (02:06)
[2018-12-28] MEDS: ipratropium/albuterol 3ml nebule NEB SCH ×6 (02:37→22:40)
--- NOTE | 2018-12-28 04:00 | NUR ---
RN Note -MD Communication Called Manuel Suarez D5 IV fluid and tube feeding. Received order to start NS and decrease fluid by as much as tub feeding is increased as it is progressed to goal.
[2018-12-28 04:21] LABS: ABG BASE EXCESS -5.1 mmol/L (-2.0-3.0); ABG HCO3 18.7 mmol/L (22.0-26.0); ABG OXYGEN SATURATION 96.9 % (95-98); ABG PCO2 (T) 29.9 mmHg (35.0-45.0); ABG PH (T) 7.415 (7.350-7.450); ABG PO2 (T) 90.4 mmHg (83-108); ALLEN'S TEST Positive; FCOHb 0.3 % (0.5-1.5); FMetHb 0.2 % (0.3-1.12); FO2Hb 96.4 % (94-100); MINUTE VOLUME 11 L/min; PATIENT TEMPERATURE 37.2; PEEP 5 cm H2O; RESPIRATORY RATE 16 b/min; RESPIRATORY RATE (OBSERVED) 20 b/min; TIDAL VOLUME 500 mL; TOTAL HEMOGLOBIN 8.7 G/dl (14.0-17.9)
[2018-12-28 04:45] LABS: BASOPHILS # (AUTO) 0.1 X10'3 (0-0.2); EOSINOPHILS % (AUTO) 0.3 % (0-6); MEAN PLATELET VOLUME 9.3 FL (7.4-10.4); MONOCYTES # (AUTO) 0.8 X10'3 (0-0.9); NEUTROPHILS # (AUTO) 9.1 X10'3 (1.8-7.7)
[2018-12-28 04:46] LABS: BASOPHILS % (AUTO) 0.9 % (0-1); HEMATOCRIT 24.4 % (42.0-52.0); HEMOGLOBIN 7.7 g/dl (14.0-17.9); LYMPHOCYTES # (AUTO) 2.6 X10'3 (1.1-4.8); LYMPHOCYTES % (AUTO) 20.7 % (21-51); MEAN CORPUSCULAR HEMOGLOBIN 30.3 PG (27.0-31.0); MEAN CORPUSCULAR HGB CONC 31.7 g/dL (33.0-36.5); MEAN CORPUSCULAR VOLUME 95.5 FL (78-98); NEUTROPHILS % (AUTO) 72.1 % (42-75); PLATELET COUNT 610 X10'3 (140-440); RED BLOOD COUNT 2.55 X10'6 (4.70-6.10); RED CELL DISTRIBUTION WIDTH 19.8 % (11.5-14.5); WHITE BLOOD COUNT 12.6 X10'3 (4.5-11.0)
[2018-12-28 04:54] LABS: PARTIAL THROMBOPLASTIN TIME 30 SECONDS (22-32)
[2018-12-28 05:02] LABS: ALANINE AMINOTRANSFERASE 35 U/L (12-78); ALBUMIN 1.3 G/DL (3.4-5.0); ALBUMIN/GLOBULIN RATIO 0.3 (1.1-1.5); ALKALINE PHOSPHATASE 117 IU/L (46-116); ANION GAP 6 (8-16); ASPARTATE AMINO TRANSFERASE 37 U/L (10-37); BILIRUBIN,TOTAL 0.2 MG/DL (0.1-1.0); BLOOD UREA NITROGEN 29 MG/DL (7-18); BUN/CREATININE RATIO 34.9 (5.4-32.0); CALCIUM 9.9 MG/DL (8.5-10.1); CHLORIDE 114 MMOL/L (99-107); CREATININE 0.83 MG/DL (0.60-1.10); GLUCOSE 144 MG/DL (70-104); MAGNESIUM 1.8 MG/DL (1.5-2.4); PHOSPHORUS 2.9 MG/DL (2.3-4.5); POTASSIUM 3.8 MMOL/L (3.5-5.1); PREALBUMIN 7.9 MG/DL (19-36); SODIUM 144 MMOL/L (135-145); TOTAL CARBON DIOXIDE 23.9 MMOL/L (24-32); TOTAL PROTEIN 6.2 G/DL (6.4-8.2); eGFR > 90 ML/MIN
[2018-12-28] MEDS: mineral oil/petrolatum ophthal oint EACHEYE SCH ×4 (06:28→19:59)
--- NOTE | 2018-12-28 06:42 | NUR ---
Patient in room CICU 2010. I have received report from Cathy Estrada" YIMI and had the opportunity to ask questions and assume patient care.
[2018-12-28 06:43] LABS: PLATELET ESTIMATE INCREASED; TOTAL CELLS COUNTED 100
[2018-12-28 06:44] LABS: ANISOCYTOSIS 2+; HYPOCHROMASIA 1+; LARGE PLATELETS FEW; POLYCHROMASIA 1+
[2018-12-28 06:45] LABS: SCHISTOCYTES FEW
[2018-12-28] MEDS: CEFEPIME 2 GM in NS 100ml IV.SOLN 100 ML IV SCH ×2 (09:13→21:29)
[2018-12-28] MEDS: simethicone 80mg chew tab CORPAK SCH (09:14)
[2018-12-28] MEDS: lactobacillus rhamnosus 10,000 MMU CELLS/CAPSULE CORPAK SCH ×2 (09:14→19:58)
[2018-12-28] MEDS: atorvastatin 20mg tablet CORPAK SCH (09:14)
[2018-12-28] MEDS: aspirin 81mg tab.chew CORPAK SCH (09:14)
[2018-12-28] MEDS: pantoprazole 40 MG vial IV SCH (09:15)
[2018-12-28] MEDS: polyethylene glycol 3350 17gm powd pack CORPAK SCH ×2 (09:19→16:26)
[2018-12-28] MEDS: normal saline 1000ml 1,000 ML IV SCH (09:36)
--- NOTE | 2018-12-28 10:08 | NUR ---
I have reviewed and agree with all medications administered and interventions performed by [employer] R[employer] NURSE Student Abhishek Evans.
[2018-12-28] MEDS ORDERED: VANCOMYCIN LEVEL IV ONE (12:30)
--- NOTE | 2018-12-28 12:30 | NUR ---
Removed sutures from right wrist, located along the radial aspect of the wrist. Three sutures accounted for, removed following policy. Cleaned and applied tegaderm dressing.
--- NOTE | 2018-12-28 13:05 | NUR ---
Removed 14mcg Nicotine from right chest, dated "12/26" with time "0900" and initials "DO". Showed patch to Анна Zuleta and disposed of in black box in medication room. Medication is not currently ordered and was placed on hold. Assumed to be placed at [facility].
--- NOTE | 2018-12-28 14:49 | NUR ---
PRESSURE ULCER EDUCATION: DEFINITION: A pressure ulcer is an area of skin that breaks down when you stay in one position too long. The constant pressure against the skin reduces the blood flow to that area and the affected tissue dies. CAUSES: "Being bedridden or in a wheelchair "Fragile skin "Having a chronic condition, such as diabetes or vascular disease "Inability to move certain parts of your body without assistance "Older age "Incontinence of urine or stool SYMPTOMS: "A reddened area that DOES NOT turn white when pressed on - this can be the beginning of a pressure ulcer "A blister, deep sore or a crater - these can be advanced pressure ulcers FIRST AID: "Relieve the pressure on this area "Keep the area clean and dry "Call your primary doctor if you see any of the above symptoms "DO NOT massage the area "DO NOT use a donut shaped or ring shaped pillow- these actually interfere with the blood flow and cause complications PREVENTION: "Check for pressure ulcers everyday "Change position at least every two hours to relieve pressure "Use items that help relieve pressure- pillows, sheepskin, foam padding, and powders. "Keep skin clean and dry "Eat healthy well balanced meals "Exercise daily IF YOU SEE ANY OF THESE SYMPTOMS WHILE IN THE HOSPITAL - TELL YOUR NURSE IMMEDIATELY. IF YOU SEE ANY OF THESE SYMPTOMS WHILE AT HOME OR HAVE ANY QUESTIONS OR CONCERNS ABOUT PRESSURE ULCERS - CALL YOUR PRIMARY DOCTOR IMMEDIATELY. Addendum: 12/28/18 at 1450 by Halima Barth RN Amended: Links added.
[2018-12-28] MEDS: midazolam 100mg in NS 100ml 100 ML IV PRN (15:40)
[2018-12-28] MEDS: FENTANYL-0.9 % NACL/PF 100 ML IV PRN (15:45)
[2018-12-28] MEDS: NORepinephrine 8mg/ 250ml NS 250 ML IV PRN (17:59)
--- NOTE | 2018-12-28 18:27 | NUR ---
Problems reprioritized. Patient report given, questions answered & plan of care reviewed with Kurtis Andrews RN.
[2018-12-28] MEDS ORDERED: acetaminophen 325mg/10.15ml oral unit dose solution CORPAK PRN (22:23)
[2018-12-28] MEDS: acetaminophen 325mg/10.15ml oral unit dose solution CORPAK PRN (22:36)
[2018-12-28] MEDS ORDERED: lactulose 20gm/30ml cup CORPAK PRN (22:55)
[2018-12-29] VITALS (24 sets, daily range): BP systolic 92–119; BP diastolic 42–56
[2018-12-29] MEDS: ipratropium/albuterol 3ml nebule NEB SCH ×6 (02:09→22:33)
[2018-12-29 02:35] LABS: PARTIAL THROMBOPLASTIN TIME 30 SECONDS (22-32)
[2018-12-29 02:37] LABS: ALANINE AMINOTRANSFERASE 48 U/L (12-78); ALBUMIN 1.1 G/DL (3.4-5.0); ALBUMIN/GLOBULIN RATIO 0.2 (1.1-1.5); ALKALINE PHOSPHATASE 129 IU/L (46-116); ANION GAP 7 (8-16); ASPARTATE AMINO TRANSFERASE 40 U/L (10-37); BILIRUBIN,TOTAL 0.2 MG/DL (0.1-1.0); BLOOD UREA NITROGEN 24 MG/DL (7-18); BUN/CREATININE RATIO 30.4 (5.4-32.0); CALCIUM 9.8 MG/DL (8.5-10.1); CHLORIDE 115 MMOL/L (99-107); CREATININE 0.79 MG/DL (0.60-1.10); GLUCOSE 135 MG/DL (70-104); MAGNESIUM 1.9 MG/DL (1.5-2.4); PHOSPHORUS 2.4 MG/DL (2.3-4.5); POTASSIUM 3.5 MMOL/L (3.5-5.1); SODIUM 144 MMOL/L (135-145); TOTAL CARBON DIOXIDE 22.4 MMOL/L (24-32); TOTAL PROTEIN 5.9 G/DL (6.4-8.2); eGFR > 90 ML/MIN
[2018-12-29 02:54] LABS: BASOPHILS # (AUTO) 0.1 X10'3 (0-0.2); BASOPHILS % (AUTO) 1.2 % (0-1); EOSINOPHILS % (AUTO) 0.4 % (0-6); HEMATOCRIT 23.3 % (42.0-52.0); HEMOGLOBIN 7.3 g/dl (14.0-17.9); LYMPHOCYTES # (AUTO) 1.9 X10'3 (1.1-4.8); LYMPHOCYTES % (AUTO) 17.3 % (21-51); MEAN CORPUSCULAR HEMOGLOBIN 30.1 PG (27.0-31.0); MEAN CORPUSCULAR HGB CONC 31.4 g/dL (33.0-36.5); MEAN CORPUSCULAR VOLUME 95.7 FL (78-98); MEAN PLATELET VOLUME 9.2 FL (7.4-10.4); MONOCYTES # (AUTO) 0.9 X10'3 (0-0.9); MONOCYTES % (AUTO) 7.8 % (2-12); NEUTROPHILS # (AUTO) 8.2 X10'3 (1.8-7.7); NEUTROPHILS % (AUTO) 73.3 % (42-75); PLATELET COUNT 579 X10'3 (140-440); RED BLOOD COUNT 2.43 X10'6 (4.70-6.10); RED CELL DISTRIBUTION WIDTH 19.6 % (11.5-14.5); WHITE BLOOD COUNT 11.2 X10'3 (4.5-11.0)
[2018-12-29] MEDS: potassium Cl 20mEq/100mL bag 100 ML IV PRN ×2 (02:59→04:30)
[2018-12-29] MEDS: mineral oil/petrolatum ophthal oint EACHEYE SCH ×4 (02:59→20:13)
[2018-12-29] MEDS: metoclopramide 5 mg/ml inj IV SCH ×4 (02:59→20:14)
[2018-12-29 03:55] LABS: ABG BASE EXCESS -4.3 mmol/L (-2.0-3.0); ABG HCO3 20.5 mmol/L (22.0-26.0); ABG OXYGEN SATURATION 96.4 % (95-98); ABG PCO2 (T) 36.9 mmHg (35.0-45.0); ABG PH (T) 7.365 (7.350-7.450); ABG PO2 (T) 91.6 mmHg (83-108); ALLEN'S TEST Positive; FCOHb 0.3 % (0.5-1.5); FMetHb 0.2 % (0.3-1.12); FO2Hb 95.9 % (94-100); MINUTE VOLUME 10 L/min; PATIENT TEMPERATURE 37.6; PEEP 5 cm H2O; RESPIRATORY RATE 16 b/min; RESPIRATORY RATE (OBSERVED) 19 b/min; TIDAL VOLUME 500 mL; TOTAL HEMOGLOBIN 8.1 G/dl (14.0-17.9)
[2018-12-29] MEDS: normal saline 1000ml 1,000 ML IV SCH ×2 (04:30→16:20)
--- NOTE | 2018-12-29 06:15 | NUR ---
Patient in room CICU 2010. I have received report from power and recovery shift engineer and had the opportunity to ask questions and assume patient care.
[2018-12-29 07:28] LABS: ANISOCYTOSIS 2+; HYPOCHROMASIA 1+; NUCLEATED RED BLOOD CELLS 2 /100WBC (0-0); PLATELET ESTIMATE INCREASED; POIKILOCYTOSIS 1+; SMUDGE CELLS 2+; TOTAL CELLS COUNTED 100
[2018-12-29 07:29] LABS: POLYCHROMASIA 2+
[2018-12-29] MEDS: methylnaltrexone br 12mg/0.6ml inj***SubQ only SQ SCH (07:52)
[2018-12-29] MEDS: CEFEPIME 2 GM in NS 100ml IV.SOLN 100 ML IV SCH ×2 (07:52→20:13)
[2018-12-29] MEDS: lactobacillus rhamnosus 10,000 MMU CELLS/CAPSULE CORPAK SCH ×2 (07:52→20:13)
[2018-12-29] MEDS: polyethylene glycol 3350 17gm powd pack CORPAK SCH ×3 (07:52→15:27)
[2018-12-29] MEDS: VANCOmycin 1250MG/NS 250ml Bag 250 ML IV SCH ×2 (07:52→20:00)
[2018-12-29] MEDS: atorvastatin 20mg tablet CORPAK SCH (07:53)
[2018-12-29] MEDS: simethicone 80mg chew tab CORPAK SCH (07:53)
[2018-12-29] MEDS: aspirin 81mg tab.chew CORPAK SCH (07:53)
[2018-12-29] MEDS: pantoprazole 40 MG vial IV SCH (07:53)
[2018-12-29] MEDS: FENTANYL-0.9 % NACL/PF 100 ML IV PRN (08:30)
[2018-12-29] MEDS: midazolam 100mg in NS 100ml 100 ML IV PRN (09:54)
--- NOTE | 2018-12-29 11:00 | NUR ---
Patient in room CICU 2010. I have received report from YIMI Mendez and had the opportunity to ask questions and assume patient care.
--- NOTE | 2018-12-29 11:14 | NUR ---
Problems reprioritized. Patient report given, questions answered & plan of care reviewed with oncoming RN.
--- NOTE | 2018-12-29 12:32 | NUR ---
Applied icepack, pt's temp is 100.6
[2018-12-29] MEDS: acetaminophen 325mg/10.15ml oral unit dose solution CORPAK PRN ×2 (13:41→23:59)
--- NOTE | 2018-12-29 14:13 | NUR ---
Paged general surgeon Dr. Renteria regarding ladarius
--- NOTE | 2018-12-29 14:59 | NUR ---
Removed ladarius per Dr. Renteria's order, pt tolerated well.
[2018-12-29 15:46] LABS: MAGNESIUM 1.8 MG/DL (1.5-2.4); POTASSIUM 4.1 MMOL/L (3.5-5.1)
--- NOTE | 2018-12-29 18:25 | NUR ---
Patient in room CICU 2010. I have received report from Angella GELLER and had the opportunity to ask questions and assume patient care. Pt on Levophed gtt to keep MAP greater than 65, Versed gtt and fentanyl gtt for sedation and pain control, will titrate all gtts per protocol, all vaso active medications infusing via PICC. on vent at 30%, PEEP 5, spo2 at 98%. No signs or symptoms of distress. Will continue to monitor. See interventions and IV spreadsheet for more information.
[2018-12-29] MEDS ORDERED: VANCOMYCIN LEVEL IV ONE (19:30)
[2018-12-30] VITALS (23 sets, daily range): BP systolic 91–130; BP diastolic 45–67
[2018-12-30] MEDS: normal saline 1000ml 1,000 ML IV SCH (00:06)
[2018-12-30] MEDS: metoclopramide 5 mg/ml inj IV SCH ×2 (02:37→07:19)
[2018-12-30] MEDS: mineral oil/petrolatum ophthal oint EACHEYE SCH ×4 (02:39→19:30)
[2018-12-30] MEDS: ipratropium/albuterol 3ml nebule NEB SCH ×6 (02:58→22:31)
[2018-12-30 03:40] LABS: BASOPHILS # (AUTO) 0.2 X10'3 (0-0.2); EOSINOPHILS # (AUTO) 0.1 X10'3 (0-0.9); EOSINOPHILS % (AUTO) 0.4 % (0-6); HEMATOCRIT 22.6 % (42.0-52.0); HEMOGLOBIN 7.2 g/dl (14.0-17.9); LYMPHOCYTES # (AUTO) 2.1 X10'3 (1.1-4.8); MONOCYTES # (AUTO) 0.9 X10'3 (0-0.9); RED BLOOD COUNT 2.37 X10'6 (4.70-6.10)
[2018-12-30 03:44] LABS: BASOPHILS % (AUTO) 1.2 % (0-1); LYMPHOCYTES % (AUTO) 14.3 % (21-51); MEAN CORPUSCULAR HEMOGLOBIN 30.5 PG (27.0-31.0); MEAN CORPUSCULAR VOLUME 95.4 FL (78-98); MEAN PLATELET VOLUME 8.9 FL (7.4-10.4); MONOCYTES % (AUTO) 5.9 % (2-12); NEUTROPHILS # (AUTO) 11.7 X10'3 (1.8-7.7); NEUTROPHILS % (AUTO) 78.2 % (42-75); PLATELET COUNT 559 X10'3 (140-440); RED CELL DISTRIBUTION WIDTH 19.4 % (11.5-14.5)
[2018-12-30 03:54] LABS: PARTIAL THROMBOPLASTIN TIME 31 SECONDS (22-32)
[2018-12-30 03:59] LABS: ALANINE AMINOTRANSFERASE 41 U/L (12-78); ALBUMIN 1.1 G/DL (3.4-5.0); ALBUMIN/GLOBULIN RATIO 0.2 (1.1-1.5); ALKALINE PHOSPHATASE 136 IU/L (46-116); ANION GAP 6 (8-16); ASPARTATE AMINO TRANSFERASE 31 U/L (10-37); BILIRUBIN,TOTAL 0.2 MG/DL (0.1-1.0); BLOOD UREA NITROGEN 20 MG/DL (7-18); CALCIUM 9.9 MG/DL (8.5-10.1); CHLORIDE 114 MMOL/L (99-107); CREATININE 0.74 MG/DL (0.60-1.10); GLUCOSE 109 MG/DL (70-104); MAGNESIUM 1.8 MG/DL (1.5-2.4); PHOSPHORUS 2.1 MG/DL (2.3-4.5); POTASSIUM 4.3 MMOL/L (3.5-5.1); SODIUM 142 MMOL/L (135-145); TOTAL CARBON DIOXIDE 21.7 MMOL/L (24-32); TOTAL PROTEIN 5.9 G/DL (6.4-8.2); eGFR > 90 ML/MIN
[2018-12-30] MEDS: NORepinephrine 8mg/ 250ml NS 250 ML IV PRN (04:00)
[2018-12-30 04:55] LABS: ABG BASE EXCESS -4.6 mmol/L (-2.0-3.0); ABG HCO3 19.8 mmol/L (22.0-26.0); ABG OXYGEN SATURATION 96.3 % (95-98); ABG PCO2 (T) 33.5 mmHg (35.0-45.0); ABG PO2 (T) 88.9 mmHg (83-108); ALLEN'S TEST Positive; FCOHb 0.3 % (0.5-1.5); FMetHb 0.2 % (0.3-1.12); FO2Hb 95.8 % (94-100); MINUTE VOLUME 11 L/min; PATIENT TEMPERATURE 37.2; PEEP 5 cm H2O; RESPIRATORY RATE 16 b/min; RESPIRATORY RATE (OBSERVED) 20 b/min; TIDAL VOLUME 500 mL; TOTAL HEMOGLOBIN 8.2 G/dl (14.0-17.9)
[2018-12-30] MEDS: midazolam 100mg in NS 100ml 100 ML IV PRN (05:54)
[2018-12-30] MEDS: FENTANYL-0.9 % NACL/PF 100 ML IV PRN (05:55)
--- NOTE | 2018-12-30 06:17 | NUR ---
Student documentation: I have reviewed and agree with all interventions, assessments performed and documented by Yanet. Student Medication Administration: For this medication-pass time frame, all medication were reviewed, dispensed, administered and documented per hospital policy by Yanet.
--- NOTE | 2018-12-30 06:32 | NUR ---
Problems reprioritized. Patient report given, questions answered & plan of care reviewed with Carley GELLER.
[2018-12-30 06:47] LABS: ANISOCYTOSIS 2+; NUCLEATED RED BLOOD CELLS 1 /100WBC (0-0); PLATELET ESTIMATE INCREASED; TOTAL CELLS COUNTED 100
[2018-12-30 06:48] LABS: HYPOCHROMASIA 1+; POLYCHROMASIA 2+; SMUDGE CELLS 1+
[2018-12-30 06:49] LABS: BURR CELLS 1+
[2018-12-30] MEDS: CEFEPIME 2 GM in NS 100ml IV.SOLN 100 ML IV SCH (07:18)
[2018-12-30] MEDS: atorvastatin 20mg tablet CORPAK SCH (07:18)
[2018-12-30] MEDS: aspirin 81mg tab.chew CORPAK SCH (07:19)
[2018-12-30] MEDS: pantoprazole 40 MG vial IV SCH (07:19)
[2018-12-30] MEDS: lactobacillus rhamnosus 10,000 MMU CELLS/CAPSULE CORPAK SCH ×2 (07:19→19:30)
[2018-12-30] MEDS: simethicone 80mg chew tab CORPAK SCH (07:19)
[2018-12-30] MEDS: polyethylene glycol 3350 17gm powd pack CORPAK SCH ×2 (07:21)
[2018-12-30] MEDS ORDERED: vancomycin inj. 750 MG in normal saline 250ml IV soln 250 ML IV SCH (08:00)
--- NOTE | 2018-12-30 08:28 | NUR ---
0600- Received report from katelyn Herbert care of patient. 0720- SAT started, fent and versed on hold. 0800-Patient squeezes hand when asked to, then proceeds to try and dig nails into nurses hand. Shakes head when performing oral care, opens eyes to command, will not respond if asking if in pain. Advanced core tae to 90cm. Able to hear air in abdomen with placement check, 5 cc residual return. Levophed turned down to 3mcg.
--- NOTE | 2018-12-30 09:52 | NUR ---
Reassessment: Pt with low Arjun of 12. Per WOC notes pt with mostly resolved wounds to right knee, midline wound that's intact with eschar, and partial thickness skin loss in gluteal cleft. Pt remains intubated and sedated and continues tolerating TF via Corpak at goal rate with GRV WNL. Patient +5.7 kg since admit using gurney scale vs bed scale. Wt change likely r/t different scales or changes in fluid status as pt with a total positive fluid balance of 10 L over the last 5 days. No recommendations for changes in fluid flushes at this time as patient's Na on the higher end of WNL at 142 today, down from 144 yesterday. Per MD notes pt likely to get a trach and PEG Monday to decrease risk of further aspiration, although possible that cord trauma could be contributing to aspiration. LBM 11, documented as moderate sized stool. Will continue to follow closely. Recommendations: 1.Continuous TF via Corpak using Vital AF with goal rate of 80ml/hr to provide:total volume 1920ml/day,2304 kcal,144g protein, and 1557ml water 2.Additional water flushes 200 mL Q4H 3.Daily wts; Prealbumin qM/Th 4.Bowel care routine Addendum: 12/30/18 at [address] Amended: Links added.
--- NOTE | 2018-12-30 10:31 | NUR ---
0945- Dr Arshad rounds- Dc IV fluids, reported elevated WBC and temperature last noc, d/c cefepime and vanco and start levaquin 500mg daily, reported H/H 7.2/22.6- 1 unit PRBC ordered and hemoccult stool with next BM D/c Reglan and miralax D/c IV fluids 1000- Placed call to daughter (POA) for consent for blood. 2 nurses witnessed phone consent.
--- NOTE | 2018-12-30 11:48 | NUR ---
1145- critical results from [facility] dated 12/26-. positive MDRO psuedomonas from sputum, correlates with our results and anbx have been changed accordingly earlier this shift.
[2018-12-30] MEDS: levoFLOXACIN-Levaquin 500mg/D5 100 ML IV SCH (12:06)
--- NOTE | 2018-12-30 13:34 | NUR ---
1330- lab called timi, difficulty getting a +direct radha, on previous admit had transfusion x6. Sending an additional 3 tubes down for further testing. Lab did contact [facility] which has no previous transfusion information as well as [facility] in [place].
[2018-12-30] MEDS: acetaminophen 325mg/10.15ml oral unit dose solution CORPAK PRN (14:38)
--- NOTE | 2018-12-30 15:56 | NUR ---
1600- Spoke with Prerna GELLER from [facility], 60ml of gastroview tonight, Core pack already in place, NPO after midnight. Plan is for PT in early afternoon tomorrow.
--- NOTE | 2018-12-30 17:57 | NUR ---
1730 Spoke with blood bank- blood sent for direct radha to [facility] in [place]. Awaiting results.
--- NOTE | 2018-12-30 18:20 | NUR ---
Patient in room CICU 2010. I have received report from Carley GELLER and had the opportunity to ask questions and assume patient care. Patient on vent via ETT on CPAP/PS mode with FiO2 at 30% and PEEP of 5, spo2 at 97%, vital signs stable, Versed drip and Fentanyl drip for sedation and pain control, will be titrated per protocol, see IV spreadsheet and Interventions for further information. Will continue to monitor.
[2018-12-30] MEDS ORDERED: diatr meglu/diatrizoate 30ml oral sol.-(3 dose) bottle NG ONE (22:00)
[2018-12-31] VITALS (27 sets, daily range): BP systolic 95–135; BP diastolic 49–66
--- NOTE | 2018-12-31 | NUR ---
No change in condition.
[2018-12-31] MEDS: ipratropium/albuterol 3ml nebule NEB SCH ×6 (02:28→22:36)
[2018-12-31 03:22] LABS: EOSINOPHILS % (AUTO) 0.2 % (0-6); HEMOGLOBIN 7.5 g/dl (14.0-17.9); WHITE BLOOD COUNT 21.9 X10'3 (4.5-11.0)
[2018-12-31 03:23] LABS: BASOPHILS # (AUTO) 0.1 X10'3 (0-0.2); BASOPHILS % (AUTO) 0.4 % (0-1); HEMATOCRIT 23.3 % (42.0-52.0); LYMPHOCYTES # (AUTO) 3.8 X10'3 (1.1-4.8); LYMPHOCYTES % (AUTO) 17.1 % (21-51); MEAN CORPUSCULAR HEMOGLOBIN 30.4 PG (27.0-31.0); MEAN CORPUSCULAR HGB CONC 32.1 g/dL (33.0-36.5); MEAN CORPUSCULAR VOLUME 94.5 FL (78-98); MEAN PLATELET VOLUME 8.9 FL (7.4-10.4); MONOCYTES # (AUTO) 1.2 X10'3 (0-0.9); MONOCYTES % (AUTO) 5.6 % (2-12); NEUTROPHILS # (AUTO) 16.8 X10'3 (1.8-7.7); NEUTROPHILS % (AUTO) 76.7 % (42-75); PLATELET COUNT 575 X10'3 (140-440); RED BLOOD COUNT 2.47 X10'6 (4.70-6.10); RED CELL DISTRIBUTION WIDTH 18.9 % (11.5-14.5)
[2018-12-31 03:34] LABS: PARTIAL THROMBOPLASTIN TIME 31 SECONDS (22-32)
[2018-12-31 03:36] LABS: ALANINE AMINOTRANSFERASE 50 U/L (12-78); ALBUMIN 1.2 G/DL (3.4-5.0); ALBUMIN/GLOBULIN RATIO 0.2 (1.1-1.5); ALKALINE PHOSPHATASE 231 IU/L (46-116); ANION GAP 5 (8-16); ASPARTATE AMINO TRANSFERASE 43 U/L (10-37); BILIRUBIN,TOTAL 0.2 MG/DL (0.1-1.0); BLOOD UREA NITROGEN 19 MG/DL (7-18); BUN/CREATININE RATIO 31.1 (5.4-32.0); CALCIUM 10.5 MG/DL (8.5-10.1); CREATININE 0.61 MG/DL (0.60-1.10); GLUCOSE 93 MG/DL (70-104); MAGNESIUM 1.9 MG/DL (1.5-2.4); POTASSIUM 4.5 MMOL/L (3.5-5.1); SODIUM 140 MMOL/L (135-145); TOTAL PROTEIN 6.1 G/DL (6.4-8.2); eGFR > 90 ML/MIN
[2018-12-31 03:38] LABS: CHLORIDE 112 MMOL/L (99-107)
[2018-12-31] MEDS: mineral oil/petrolatum ophthal oint EACHEYE SCH ×4 (03:47→19:30)
--- NOTE | 2018-12-31 04:00 | NUR ---
No change in condition.
[2018-12-31 04:35] LABS: ABG BASE EXCESS -2.1 mmol/L (-2.0-3.0); ABG HCO3 21.8 mmol/L (22.0-26.0); ABG PCO2 (T) 34.3 mmHg (35.0-45.0); ABG PH (T) 7.423 (7.350-7.450); ABG PO2 (T) 83.7 mmHg (83-108); ALLEN'S TEST Positive; FCOHb 0.1 % (0.5-1.5); FMetHb 0.3 % (0.3-1.12); FO2Hb 95.6 % (94-100); MINUTE VOLUME 7 L/min; PATIENT TEMPERATURE 37.7; PEEP 5 cm H2O; RESPIRATORY RATE 0 b/min; RESPIRATORY RATE (OBSERVED) 19 b/min; TIDAL VOLUME 368 mL; TOTAL HEMOGLOBIN 8.6 G/dl (14.0-17.9)
[2018-12-31 04:55] LABS: OCCULT BLOOD STOOL NEGATIVE (Neg)
--- NOTE | 2018-12-31 05:15 | NUR ---
Called blood bank, they are still awaiting blood.
--- NOTE | 2018-12-31 06:15 | NUR ---
Student documentation: I have reviewed and agree with all interventions, assessments performed and documented by Luz Marina. Student Medication Administration: For this medication-pass time frame, all medication were reviewed, dispensed, administered and documented per hospital policy by Luz Marina.
--- NOTE | 2018-12-31 06:25 | NUR ---
Patient in room CICU 2010. I have received report from Piedad and had the opportunity to ask questions and assume patient care.
[2018-12-31 06:58] LABS: NUCLEATED RED BLOOD CELLS 11 /100WBC (0-0); TOTAL CELLS COUNTED 100
[2018-12-31 06:59] LABS: ANISOCYTOSIS 2+; PLATELET ESTIMATE INCREASED; POLYCHROMASIA 2+
[2018-12-31 07:01] LABS: HYPOCHROMASIA 1+; MICROCYTOSIS 1+
[2018-12-31] MEDS: methylnaltrexone br 12mg/0.6ml inj***SubQ only SQ SCH ×2 (08:00→08:24)
[2018-12-31] MEDS: atorvastatin 20mg tablet CORPAK SCH (08:23)
[2018-12-31] MEDS: lactobacillus rhamnosus 10,000 MMU CELLS/CAPSULE CORPAK SCH ×2 (08:23→19:30)
[2018-12-31] MEDS: pantoprazole 40 MG vial IV SCH (08:23)
[2018-12-31] MEDS: levoFLOXACIN-Levaquin 500mg/D5 100 ML IV SCH (08:23)
[2018-12-31] MEDS: simethicone 80mg chew tab CORPAK SCH (08:24)
[2018-12-31] MEDS: aspirin 81mg tab.chew CORPAK SCH (08:24)
[2018-12-31] MEDS ORDERED: epoetin 20,000 units/ml inj SQ ONE ×2 (10:45→11:00)
[2018-12-31] MEDS: FENTANYL-0.9 % NACL/PF 100 ML IV PRN (10:50)
--- NOTE | 2018-12-31 10:57 | NUR ---
0800- held off on SAT as patient has multiple procedures scheduled for today (Peg tube, Trach). 0900- WOC rounded, skin care provided with WOC nurse. 1000- Rounds completed. Blood not available at this time due to difficulty typing and cross matching. Patient to receive epoegen [id number], Iron/TIBC with next blood draw. OK marguerite faust per protocol.
--- NOTE | 2018-12-31 15:40 | NUR ---
1500- Patient to go to [facility] for peg placement. 1530- [facility] called nursing. Last dose of plavix confirmed as being administered 12/28. Dr Chavira states there is a 5 day hold on peg procedure after plavix administered. Relayed information to charge nurse. Rescheduled to 01/02 by [facility]io.
[2018-12-31] MEDS ORDERED: pneumococcal 23-VAL P-sac vacc 25 mcg/0.5ml vial IMVAC ONE (16:00)
[2018-12-31] MEDS ORDERED: FLU VACC QS2019-20 36MOS UP/PF 60 MCG/0.5 ML SYRINGE IMVAC ONE (16:00)
--- NOTE | 2018-12-31 16:43 | NUR ---
1630- Spoke with [facility], asked if MD would like a P2Y12 test, nurses state Md gone for the day, say they will follow up with MD in am. 1645- Updated JANICE Rosen on poc
--- NOTE | 2018-12-31 17:38 | NUR ---
1740- Dr Collier here. plan for trach at 0900 tomorrow morning, order rocuronium 90- 100 mg for procedure in am.
--- NOTE | 2018-12-31 18:14 | NUR ---
Problems reprioritized. Patient report given, questions answered & plan of care reviewed with Piedad.
--- NOTE | 2018-12-31 18:20 | NUR ---
Patient in room CICU 2010. I have received report from Carley GELLER and had the opportunity to ask questions and assume patient care. Patient on vent via endotracheal tube at 30% Fio2 and PEEP 5 on CPAP/PS mode, Versed drip and Fentanyl drip for sedation and pain control, will titrate per protocol, see IV spreadsheet and interventions for further information. Patients vital signs stable, no signs or symptoms of distress. All monitoring alarms audible. Will continue to monitor.
--- NOTE | 2018-12-31 18:45 | NUR ---
Tube feedings restarted, feedings had been held during day shift for possible PEG and Tracheostomy. Tracheostomy is planned in AM with Dr. Collier.
[2018-12-31] MEDS ORDERED: VANCOMYCIN LEVEL IV ONE (19:30)
[2019-01-01] VITALS (24 sets, daily range): BP systolic 91–130; BP diastolic 47–71
--- NOTE | 2019-01-01 00:30 | NUR ---
Tube feeding off for planned tracheostomy in AM.
[2019-01-01] MEDS: mineral oil/petrolatum ophthal oint EACHEYE SCH ×4 (02:22→20:52)
[2019-01-01] MEDS: ipratropium/albuterol 3ml nebule NEB SCH ×6 (02:28→22:33)
[2019-01-01] MEDS: midazolam 100mg in NS 100ml 100 ML IV PRN ×2 (02:34→22:35)
[2019-01-01] MEDS: FENTANYL-0.9 % NACL/PF 100 ML IV PRN ×2 (02:34→20:20)
[2019-01-01 03:20] LABS: BASOPHILS # (AUTO) 0.2 X10'3 (0-0.2); BASOPHILS % (AUTO) 0.8 % (0-1); EOSINOPHILS % (AUTO) 0.2 % (0-6); HEMATOCRIT 27.1 % (42.0-52.0); HEMOGLOBIN 8.6 g/dl (14.0-17.9); LYMPHOCYTES # (AUTO) 2.8 X10'3 (1.1-4.8); LYMPHOCYTES % (AUTO) 15.2 % (21-51); MEAN CORPUSCULAR HEMOGLOBIN 28.6 PG (27.0-31.0); MEAN CORPUSCULAR HGB CONC 31.9 g/dL (33.0-36.5); MEAN CORPUSCULAR VOLUME 89.8 FL (78-98); MEAN PLATELET VOLUME 8.4 FL (7.4-10.4); MONOCYTES # (AUTO) 1.1 X10'3 (0-0.9); MONOCYTES % (AUTO) 5.8 % (2-12); NEUTROPHILS # (AUTO) 14.3 X10'3 (1.8-7.7); PLATELET COUNT 544 X10'3 (140-440); RED BLOOD COUNT 3.02 X10'6 (4.70-6.10); WHITE BLOOD COUNT 18.3 X10'3 (4.5-11.0)
[2019-01-01 03:23] LABS: PARTIAL THROMBOPLASTIN TIME 31 SECONDS (22-32)
[2019-01-01 03:39] LABS: % IRON SATURATION 15 % (11-46); IRON 21 UG/DL (53-167); TOTAL IRON BINDING CAPACITY 138 UG/DL (259-388)
[2019-01-01 03:40] LABS: ALANINE AMINOTRANSFERASE 59 U/L (12-78); ALBUMIN 1.2 G/DL (3.4-5.0); ALBUMIN/GLOBULIN RATIO 0.2 (1.1-1.5); ALKALINE PHOSPHATASE 233 IU/L (46-116); ANION GAP 4 (8-16); ASPARTATE AMINO TRANSFERASE 54 U/L (10-37); BILIRUBIN,TOTAL 0.2 MG/DL (0.1-1.0); BLOOD UREA NITROGEN 18 MG/DL (7-18); CALCIUM 10.7 MG/DL (8.5-10.1); CHLORIDE 109 MMOL/L (99-107); CREATININE 0.53 MG/DL (0.60-1.10); GLUCOSE 88 MG/DL (70-104); PHOSPHORUS 2.5 MG/DL (2.3-4.5); POTASSIUM 4.2 MMOL/L (3.5-5.1); SODIUM 139 MMOL/L (135-145); TOTAL CARBON DIOXIDE 26.4 MMOL/L (24-32); TOTAL PROTEIN 6.2 G/DL (6.4-8.2); eGFR > 90 ML/MIN
[2019-01-01 03:56] LABS: ABG HCO3 22.6 mmol/L (22.0-26.0); ABG OXYGEN SATURATION 95.9 % (95-98); ABG PCO2 (T) 33.6 mmHg (35.0-45.0); ABG PH (T) 7.446 (7.350-7.450); ABG PO2 (T) 78.7 mmHg (83-108); ALLEN'S TEST Positive; FO2Hb 95.9 % (94-100); MINUTE VOLUME 7 L/min; PATIENT TEMPERATURE 37.2; PEEP 5 cm H2O; RESPIRATORY RATE 0 b/min; RESPIRATORY RATE (OBSERVED) 11 b/min; TIDAL VOLUME 602 mL; TOTAL HEMOGLOBIN 9.7 G/dl (14.0-17.9)
--- NOTE | 2019-01-01 04:00 | NUR ---
Patient following commands and spontaneously opening eyes.
--- NOTE | 2019-01-01 06:28 | NUR ---
Problems reprioritized. Patient report given, questions answered & plan of care reviewed with Rosa GELLER.
--- NOTE | 2019-01-01 06:30 | NUR ---
Student documentation: I have reviewed and agree with all interventions, assessments performed and documented by Luz Marina.Student Medication Administration: For this medication-pass time frame, all medication were reviewed, dispensed, administered and documented per hospital policy by Luz Marina.
[2019-01-01] MEDS: levoFLOXACIN-Levaquin 500mg/D5 100 ML IV SCH (07:50)
[2019-01-01 08:01] LABS: NUCLEATED RED BLOOD CELLS 6 /100WBC (0-0); TOTAL CELLS COUNTED 100
[2019-01-01 08:02] LABS: PLATELET ESTIMATE INCREASED
[2019-01-01 08:03] LABS: LARGE PLATELETS FEW; TOXIC GRANULATION 1+; TOXIC VACUOLATION FEW
[2019-01-01 08:04] LABS: ANISOCYTOSIS 3+
[2019-01-01 08:05] LABS: SCHISTOCYTES FEW
[2019-01-01 08:10] LABS: ELLIPTOCYTES FEW
[2019-01-01 08:11] LABS: SPHEROCYTES FEW
[2019-01-01 08:12] LABS: HYPOCHROMASIA 1+; POLYCHROMASIA 2+
[2019-01-01] MEDS: aspirin 81mg tab.chew CORPAK SCH (08:30)
[2019-01-01] MEDS ORDERED: rocuronium 10mg/ml inj IV ONE (09:00)
[2019-01-01 09:46] LABS: SMUDGE CELLS 3+
[2019-01-01] MEDS: simethicone 80mg chew tab CORPAK SCH (10:44)
[2019-01-01] MEDS: atorvastatin 20mg tablet CORPAK SCH (10:44)
[2019-01-01] MEDS: lactobacillus rhamnosus 10,000 MMU CELLS/CAPSULE CORPAK SCH ×2 (10:44→20:51)
[2019-01-01] MEDS: pantoprazole 40 MG vial IV SCH (10:45)
--- NOTE | 2019-01-01 18:25 | NUR ---
ASSUMED CARE FROM SHERRON RN NO QUESTIONS OR CONCERNS AFTER SBAR
--- NOTE | 2019-01-01 20:32 | NUR ---
TALKED WITH ERICA LEON FIELD CONTACT PERSON ABOUT PATIENT GETTING A PEG TUBE PLACEMENT TOMORROW 01/02/19, BUT THAT DAY SHIFT RN ATTEMPTED TO CONTACT IR, TO GET ORDERS FOR NPO AND GASTRIC VIEW FOR PEG PLACEMENT, EDWARD STATED HE IS NOT ORDERING CONTRAST OR THE NPO AFTER MIDNIGHT THAT IR AND MD SHOULD HAVE HAD THE ORDERS PUT IN FOR PATIENT EDWARD STATED " LEAVE ON TUBE FEEDING
--- NOTE | 2019-01-01 22:15 | NUR ---
PATIENT IN BED EYES CLOSED RR EVEN UN LABORED NO OBSERVABLE S/S OF ACUTE STRESS AT THIS TIME
[2019-01-02] VITALS (24 sets, daily range): BP systolic 95–140; BP diastolic 44–67
--- NOTE | 2019-01-02 00:26 | NUR ---
patient in bed eyes closed turned down the pain medication patients rr even un labored no observable s/s of acute stress at this time
[2019-01-02] MEDS: mineral oil/petrolatum ophthal oint EACHEYE SCH ×4 (02:19→20:32)
[2019-01-02 02:26] LABS: BASOPHILS # (AUTO) 0.1 X10'3 (0-0.2); BASOPHILS % (AUTO) 0.7 % (0-1); EOSINOPHILS % (AUTO) 0.2 % (0-6); HEMATOCRIT 25.6 % (42.0-52.0); HEMOGLOBIN 8.3 g/dl (14.0-17.9); LYMPHOCYTES # (AUTO) 2.9 X10'3 (1.1-4.8); LYMPHOCYTES % (AUTO) 20.4 % (21-51); MEAN CORPUSCULAR HEMOGLOBIN 29.3 PG (27.0-31.0); MEAN CORPUSCULAR HGB CONC 32.2 g/dL (33.0-36.5); MEAN CORPUSCULAR VOLUME 90.8 FL (78-98); MEAN PLATELET VOLUME 7.9 FL (7.4-10.4); MONOCYTES # (AUTO) 1.1 X10'3 (0-0.9); NEUTROPHILS % (AUTO) 70.7 % (42-75); PLATELET COUNT 472 X10'3 (140-440); RED BLOOD COUNT 2.82 X10'6 (4.70-6.10); RED CELL DISTRIBUTION WIDTH 21.4 % (11.5-14.5); WHITE BLOOD COUNT 14.1 X10'3 (4.5-11.0)
[2019-01-02 02:34] LABS: PARTIAL THROMBOPLASTIN TIME 29 SECONDS (22-32)
[2019-01-02 02:39] LABS: ALANINE AMINOTRANSFERASE 72 U/L (12-78); ALBUMIN 1.2 G/DL (3.4-5.0); ALBUMIN/GLOBULIN RATIO 0.3 (1.1-1.5); ALKALINE PHOSPHATASE 222 IU/L (46-116); ANION GAP 3 (8-16); ASPARTATE AMINO TRANSFERASE 53 U/L (10-37); BILIRUBIN,TOTAL 0.2 MG/DL (0.1-1.0); BLOOD UREA NITROGEN 18 MG/DL (7-18); BUN/CREATININE RATIO 32.1 (5.4-32.0); CALCIUM 10.7 MG/DL (8.5-10.1); CHLORIDE 109 MMOL/L (99-107); CREATININE 0.56 MG/DL (0.60-1.10); GLUCOSE 113 MG/DL (70-104); MAGNESIUM 1.9 MG/DL (1.5-2.4); PHOSPHORUS 2.8 MG/DL (2.3-4.5); POTASSIUM 4.3 MMOL/L (3.5-5.1); SODIUM 139 MMOL/L (135-145); TOTAL CARBON DIOXIDE 26.9 MMOL/L (24-32); TOTAL PROTEIN 5.8 G/DL (6.4-8.2); eGFR > 90 ML/MIN
[2019-01-02] MEDS: ipratropium/albuterol 3ml nebule NEB SCH ×6 (02:45→23:15)
[2019-01-02 03:21] LABS: NUCLEATED RED BLOOD CELLS 3 /100WBC (0-0)
--- NOTE | 2019-01-02 03:21 | NUR ---
patient in bed eyes closed rr even un labored no observable s/s of acute stress at this time
[2019-01-02 03:22] LABS: ANISOCYTOSIS 3+; HYPOCHROMASIA 1+; PLATELET ESTIMATE INCREASED; POLYCHROMASIA 2+; SCHISTOCYTES FEW
[2019-01-02 03:23] LABS: ELLIPTOCYTES FEW; LARGE PLATELETS FEW; SMUDGE CELLS 3+; TOXIC GRANULATION 1+; TOXIC VACUOLATION FEW
[2019-01-02 04:09] LABS: BANDS% (MANUAL) 2 % (0-10); BASOPHILS % (MANUAL) 2 % (0-1); EOSINOPHILS % (MANUAL) 1 % (0-6); LYMPHOCYTES % (MANUAL) 26 % (21-51); METAMYLEOCYTES% (MANUAL) 6 % (0-0); MONOCYTES % (MANUAL) 11 % (2-12); MYELOCYTES % (MANUAL) 8 % (0-0); NEUTROPHILS % (MANUAL) 42 % (42-75); PROMYELOCYTES % (MANUAL) 2 % (0-0); TOTAL CELLS COUNTED 100
[2019-01-02 04:36] LABS: ABG BASE EXCESS -1.7 mmol/L (-2.0-3.0); ABG HCO3 23.2 mmol/L (22.0-26.0); ABG OXYGEN SATURATION 92.2 % (95-98); ABG PCO2 (T) 39.9 mmHg (35.0-45.0); ABG PH (T) 7.383 (7.350-7.450); ABG PO2 (T) 66.4 mmHg (83-108); ALLEN'S TEST Positive; FCOHb 0.1 % (0.5-1.5); FMetHb 0.1 % (0.3-1.12); MINUTE VOLUME 8 L/min; PATIENT TEMPERATURE 37.3; PEEP 5 cm H2O; RESPIRATORY RATE 16 b/min; RESPIRATORY RATE (OBSERVED) 17 b/min; TIDAL VOLUME 500 mL; TOTAL HEMOGLOBIN 9.3 G/dl (14.0-17.9)
--- NOTE | 2019-01-02 05:53 | NUR ---
patient is easier to arouse after I turned sedation down, patient in bed eyes closed rr even un labored no observable s/s of acute stress at this time
--- NOTE | 2019-01-02 06:22 | NUR ---
SBAR TO TEE RN NO QUESTIONS OR CONCERNS AFTER ASSUMING CARE
--- NOTE | 2019-01-02 06:44 | NUR ---
Assumed care report recieved
[2019-01-02] MEDS: levoFLOXACIN-Levaquin 500mg/D5 100 ML IV SCH (07:31)
[2019-01-02] MEDS: atorvastatin 20mg tablet CORPAK SCH (07:31)
[2019-01-02] MEDS: lactobacillus rhamnosus 10,000 MMU CELLS/CAPSULE CORPAK SCH ×2 (07:31→20:00)
[2019-01-02] MEDS: pantoprazole 40 MG vial IV SCH (07:31)
[2019-01-02] MEDS: simethicone 80mg chew tab CORPAK SCH (08:00)
[2019-01-02] MEDS: methylnaltrexone br 12mg/0.6ml inj***SubQ only SQ SCH (08:00)
[2019-01-02] MEDS: aspirin 81mg tab.chew CORPAK SCH (08:30)
[2019-01-02] MEDS: FENTANYL-0.9 % NACL/PF 100 ML IV PRN ×2 (13:02→23:56)
[2019-01-02] MEDS ORDERED: midazolam 2 mg/2 ml injection IV PRN (14:30)
[2019-01-02] MEDS ORDERED: fentaNYL/PF 50MCG/1 ML 2ML syringe IV PRN (14:30)
[2019-01-02] MEDS ORDERED: LIDOcaine 1%/PF 5ML 10 MG/ML VIAL SQ ONE (14:30)
[2019-01-02] MEDS ORDERED: glucagon, human recombinant 1mg kit IV ONE (14:30)
[2019-01-02] MEDS ORDERED: cefazolin/dext.iso 2gm/50ml 100 ML IV ONE (14:30)
[2019-01-02] MEDS ORDERED: LIDOcaine 1% (10mg/ml) 2ml vial SQ ONE (14:45)
[2019-01-02] MEDS ORDERED: iohexol 300 MG/1 ML 50ml polymer ONE (15:19)
--- NOTE | 2019-01-02 15:25 | NUR ---
Pt taken to IR by interventional RNs and RT. VSS upon leaving unit BP 110s/50s, HR 70s. Sating >95% on the 35% FiO2. Fent 7.5, Versed 1. Will continue to monitor.
[2019-01-02] MEDS ORDERED: fentaNYL/PF 50MCG/1 ML 2ML syringe ONE (15:32)
[2019-01-02] MEDS ORDERED: glucagon, human recombinant 1mg kit ONE (15:45)
--- NOTE | 2019-01-02 18:22 | NUR ---
assumed care from Yessenia RN no questions or concerns after assuming care
--- NOTE | 2019-01-02 18:28 | NUR ---
Reassessment: TF on hold for PEG placement. Per imaging report PEG has been placed. No new orders to resume TF at this time. Recommend resuming TF at 20 mL/hr and advance by 20 mL/hr Q8H as tolerated to goal rate of 80 mL/hr using Vital AF to meet nutrient needs. [facility] 01/01. Will continue to follow. Recommendations: 1.Continuous TF via PEG once okay to use by MD at 20 mL/hr and advance by 20 mL/hr Q8H as tolerated to goal rate of 80 mL/hr using Vital AF to provide: total volume 1920ml/day,2304 kcal,144g protein, and 1557ml water 2.Additional water flushes 200 mL Q4H 3.Daily wts; Prealbumin / 4.Bowel care routine Addendum: 01/02/19 at [address] Amended: Links added.
[2019-01-02] MEDS: Dextrose 10%-water IV solution 1,000 ML IV SCH (20:31)
[2019-01-02] MEDS ORDERED: diatr meglu/diatrizoate 30ml oral sol.-(3 dose) bottle NG ONE (22:00)
--- NOTE | 2019-01-02 23:08 | NUR ---
PATIENT IN BED EYES CLOSED RR EVEN UN LABORED NO OBSERVABLE S/S OF ACUTE STRESS AT THIS TIME WILL CONTINUE TO MONITOR
--- NOTE | 2019-01-02 23:11 | NUR ---
RE-STARTED TF PER DAY SHIFT RN STATING THAT TF WILL RESUME AT 2300 HRS, STARTING OFF AT 20ML/HR ADVANCING 20 ML/HR Q 8 HRS TILL GOAL OF 80
[2019-01-03] VITALS (24 sets, daily range): BP systolic 101–148; BP diastolic 49–78
--- NOTE | 2019-01-03 00:35 | NUR ---
patient appears to be waking up more, educated patient on trach and peg tube with transfer to [facility] for recovery, he was able to appropriately respond with hand jesters, removed restraints patient verbalized the importance of not pulling on lines or vent tubing, patients rr even un labored no observable s/s of acute stress will continue to monitor
--- NOTE | 2019-01-03 01:00 | NUR ---
patient was reaching for his lines had to re apply soft restraints to upper extremities, patient used hand jesters in understanding i told him we will see in an hour how he's doing and we can take restraints off and try again
[2019-01-03 02:46] LABS: BASOPHILS # (AUTO) 0.1 X10'3 (0-0.2); BASOPHILS % (AUTO) 0.8 % (0-1); EOSINOPHILS % (AUTO) 0.2 % (0-6); HEMATOCRIT 27.9 % (42.0-52.0); LYMPHOCYTES # (AUTO) 3.9 X10'3 (1.1-4.8); LYMPHOCYTES % (AUTO) 25.9 % (21-51); MEAN CORPUSCULAR HEMOGLOBIN 29.2 PG (27.0-31.0); MEAN CORPUSCULAR HGB CONC 32.3 g/dL (33.0-36.5); MEAN CORPUSCULAR VOLUME 90.2 FL (78-98); MONOCYTES # (AUTO) 1.1 X10'3 (0-0.9); NEUTROPHILS # (AUTO) 10.1 X10'3 (1.8-7.7); NEUTROPHILS % (AUTO) 66.1 % (42-75); PLATELET COUNT 480 X10'3 (140-440); RED BLOOD COUNT 3.09 X10'6 (4.70-6.10); RED CELL DISTRIBUTION WIDTH 21.3 % (11.5-14.5); WHITE BLOOD COUNT 15.2 X10'3 (4.5-11.0)
[2019-01-03 02:56] LABS: PARTIAL THROMBOPLASTIN TIME 29 SECONDS (22-32)
[2019-01-03 03:13] LABS: ALANINE AMINOTRANSFERASE 72 U/L (12-78); ALBUMIN 1.4 G/DL (3.4-5.0); ALBUMIN/GLOBULIN RATIO 0.3 (1.1-1.5); ALKALINE PHOSPHATASE 230 IU/L (46-116); ANION GAP 5 (8-16); ASPARTATE AMINO TRANSFERASE 54 U/L (10-37); BILIRUBIN,TOTAL 0.3 MG/DL (0.1-1.0); BLOOD UREA NITROGEN 16 MG/DL (7-18); BUN/CREATININE RATIO 26.2 (5.4-32.0); CALCIUM 11.1 MG/DL (8.5-10.1); CHLORIDE 108 MMOL/L (99-107); CREATININE 0.61 MG/DL (0.60-1.10); GLUCOSE 90 MG/DL (70-104); MAGNESIUM 1.8 MG/DL (1.5-2.4); PHOSPHORUS 2.8 MG/DL (2.3-4.5); POTASSIUM 3.9 MMOL/L (3.5-5.1); PREALBUMIN 13.8 MG/DL (19-36); SODIUM 139 MMOL/L (135-145); TOTAL CARBON DIOXIDE 25.9 MMOL/L (24-32); TOTAL PROTEIN 6.6 G/DL (6.4-8.2); eGFR > 90 ML/MIN
[2019-01-03] MEDS: ipratropium/albuterol 3ml nebule NEB SCH ×6 (03:13→23:05)
[2019-01-03] MEDS: mineral oil/petrolatum ophthal oint EACHEYE SCH ×4 (03:20→20:00)
[2019-01-03 03:29] LABS: TOTAL CELLS COUNTED 100
[2019-01-03 03:30] LABS: ANISOCYTOSIS 3+; HYPOCHROMASIA 1+; NUCLEATED RED BLOOD CELLS 4 /100WBC (0-0); PLATELET ESTIMATE INCREASED; POLYCHROMASIA 2+
[2019-01-03 03:31] LABS: ELLIPTOCYTES FEW; SCHISTOCYTES FEW
[2019-01-03 03:32] LABS: LARGE PLATELETS FEW; SMUDGE CELLS 2+
[2019-01-03] MEDS: acetaminophen 325mg/10.15ml oral unit dose solution CORPAK PRN (03:46)
[2019-01-03 03:50] LABS: ABG HCO3 23.2 mmol/L (22.0-26.0); ABG OXYGEN SATURATION 95.1 % (95-98); ABG PH (T) 7.399 (7.350-7.450); ABG PO2 (T) 83.2 mmHg (83-108); ALLEN'S TEST Positive; FCOHb 0.3 % (0.5-1.5); FMetHb 0.1 % (0.3-1.12); FO2Hb 94.7 % (94-100); MINUTE VOLUME 8 L/min; PATIENT TEMPERATURE 38.3; PEEP 5 cm H2O; RESPIRATORY RATE 16 b/min; RESPIRATORY RATE (OBSERVED) 23 b/min; TIDAL VOLUME 500 mL; TOTAL HEMOGLOBIN 9.9 G/dl (14.0-17.9)
--- NOTE | 2019-01-03 04:20 | NUR ---
patient alert and oriented, soft restraints on, due to patient not quite recognizing the importance of pulling on lines or vent tubing
--- NOTE | 2019-01-03 06:26 | NUR ---
sbar marielena morales rn no questions or concerns after assuming care
--- NOTE | 2019-01-03 06:49 | NUR ---
Patient in room CICU 2010. I have received report from YIMI Acosta and had the opportunity to ask questions and assume patient care.
[2019-01-03] MEDS: lactobacillus rhamnosus 10,000 MMU CELLS/CAPSULE CORPAK SCH ×2 (07:36→20:37)
[2019-01-03] MEDS: atorvastatin 20mg tablet CORPAK SCH (07:37)
[2019-01-03] MEDS: pantoprazole 40 MG vial IV SCH (07:37)
[2019-01-03] MEDS: simethicone 80mg chew tab CORPAK SCH (07:37)
[2019-01-03] MEDS: levoFLOXACIN-Levaquin 500mg/D5 100 ML IV SCH (07:38)
[2019-01-03] MEDS: aspirin 81mg tab.chew CORPAK SCH (08:49)
[2019-01-03] MEDS ORDERED: FLU VACC QS2019-20 36MOS UP/PF 60 MCG/0.5 ML SYRINGE IMVAC ONE (10:00)
[2019-01-03] MEDS ORDERED: pneumococcal 23-VAL P-sac vacc 25 mcg/0.5ml vial IMVAC ONE (10:00)
--- NOTE | 2019-01-03 18:25 | NUR ---
Problems reprioritized. Patient report given, questions answered & plan of care reviewed with YIMI Galvin.
--- NOTE | 2019-01-03 18:34 | NUR ---
Patient in room CICU 2010. I have received report from JUSTINE GELLER and had the opportunity to ask questions and assume patient care.
[2019-01-04] VITALS (13 sets, daily range): BP systolic 96–137; BP diastolic 46–86
[2019-01-04] MEDS: mineral oil/petrolatum ophthal oint EACHEYE SCH ×2 (01:39→08:00)
[2019-01-04] MEDS: Dextrose 10%-water IV solution 1,000 ML IV SCH (01:39)
[2019-01-04 02:54] LABS: BASOPHILS # (AUTO) 0.1 X10'3 (0-0.2); BASOPHILS % (AUTO) 0.5 % (0-1); EOSINOPHILS % (AUTO) 0.1 % (0-6); HEMATOCRIT 27.9 % (42.0-52.0); HEMOGLOBIN 9.1 g/dl (14.0-17.9); LYMPHOCYTES # (AUTO) 2.9 X10'3 (1.1-4.8); LYMPHOCYTES % (AUTO) 15.1 % (21-51); MEAN CORPUSCULAR HGB CONC 32.5 g/dL (33.0-36.5); MEAN CORPUSCULAR VOLUME 89.3 FL (78-98); MEAN PLATELET VOLUME 8.2 FL (7.4-10.4); MONOCYTES # (AUTO) 1.1 X10'3 (0-0.9); MONOCYTES % (AUTO) 5.5 % (2-12); NEUTROPHILS # (AUTO) 15.1 X10'3 (1.8-7.7); NEUTROPHILS % (AUTO) 78.8 % (42-75); PLATELET COUNT 479 X10'3 (140-440); RED BLOOD COUNT 3.12 X10'6 (4.70-6.10); RED CELL DISTRIBUTION WIDTH 21.6 % (11.5-14.5); WHITE BLOOD COUNT 19.1 X10'3 (4.5-11.0)
[2019-01-04 03:00] LABS: PARTIAL THROMBOPLASTIN TIME 30 SECONDS (22-32)
[2019-01-04 03:06] LABS: ALANINE AMINOTRANSFERASE 80 U/L (12-78); ALBUMIN 1.6 G/DL (3.4-5.0); ALBUMIN/GLOBULIN RATIO 0.3 (1.1-1.5); ALKALINE PHOSPHATASE 227 IU/L (46-116); ANION GAP 5 (8-16); ASPARTATE AMINO TRANSFERASE 64 U/L (10-37); BILIRUBIN,TOTAL 0.4 MG/DL (0.1-1.0); BLOOD UREA NITROGEN 14 MG/DL (7-18); BUN/CREATININE RATIO 23.3 (5.4-32.0); CALCIUM 11.6 MG/DL (8.5-10.1); CHLORIDE 107 MMOL/L (99-107); GLUCOSE 123 MG/DL (70-104); MAGNESIUM 1.8 MG/DL (1.5-2.4); PHOSPHORUS 2.3 MG/DL (2.3-4.5); POTASSIUM 3.6 MMOL/L (3.5-5.1); SODIUM 139 MMOL/L (135-145); TOTAL CARBON DIOXIDE 27.2 MMOL/L (24-32); TOTAL PROTEIN 6.9 G/DL (6.4-8.2); eGFR > 90 ML/MIN
[2019-01-04] MEDS: ipratropium/albuterol 3ml nebule NEB SCH ×3 (03:10→11:25)
[2019-01-04 06:09] LABS: ANISOCYTOSIS 3+; HYPOCHROMASIA 1+; NUCLEATED RED BLOOD CELLS 2 /100WBC (0-0); PLATELET ESTIMATE INCREASED; POLYCHROMASIA 2+; SCHISTOCYTES FEW; SMUDGE CELLS 2+; TOTAL CELLS COUNTED 100
--- NOTE | 2019-01-04 06:18 | NUR ---
Problems reprioritized. Patient report given, questions answered & plan of care reviewed with JUSTINE GELLER.
[2019-01-04] MEDS: methylnaltrexone br 12mg/0.6ml inj***SubQ only SQ SCH (08:00)
--- NOTE | 2019-01-04 08:00 | NUR ---
Pt refused for BG to be checked - pt educated on importance of checking BG while on TF, still refused. No s/s of hypo/hyperglycemia. Pt also refused mouthcare at 0700, educated on VAP prevention.
[2019-01-04] MEDS: levoFLOXACIN-Levaquin 500mg/D5 100 ML IV SCH (08:01)
[2019-01-04] MEDS: lactobacillus rhamnosus 10,000 MMU CELLS/CAPSULE CORPAK SCH (08:02)
[2019-01-04] MEDS: atorvastatin 20mg tablet CORPAK SCH (08:02)
[2019-01-04] MEDS: aspirin 81mg tab.chew CORPAK SCH (08:02)
[2019-01-04] MEDS: pantoprazole 40 MG vial IV SCH (08:02)
[2019-01-04] MEDS: simethicone 80mg chew tab CORPAK SCH (08:02)
--- NOTE | 2019-01-04 11:48 | NUR ---
I have reviewed and agree with all medications administered and interventions performed by [facility] Student(MACEY WHITTAKER) Addendum: 01/04/19 at 1149 by Cici Hickey RT Amended: Links added.
--- NOTE | 2019-01-04 12:15 | NUR ---
patient leaving for [facility] by ambulance
--- NOTE | 2019-01-04 12:22 | NUR ---
Reassessment: Tube feeding via PEG have been restarted. Per bedside RN he is tolerating well and is at goal. Pending discharge to [facility] today. Recommendations: 1.Continuous TF via PEG at goal rate of 80 mL/hr using Vital AF to provide: total volume 1920ml/day,2304 kcal,144g protein, and 1557ml water 2.Additional water flushes 200 mL Q4H 3.Daily wts; Prealbumin qM/Th 4.Bowel care routine Addendum: 01/04/19 at [address] Amended: Links added.
--- NOTE | 2019-01-04 12:30 | NUR ---
Called report to YIMI Reyes at [facility]. Pt transferred by [facility]. Saline locked, will be bagged during transport. Peg tube clamped. No belongings present. Pt alert and oriented and stable for transfer.
== END 2019-01-04 12:25 | DRG 4 ==
LOC: ER 21:06 → ED HOLD 23:55 → CMPBEDREQ 12-27 00:20 → CICU 2S 12-27 00:24
PROVIDERS: ADMIT Internal Medicine Critical Care Medicine
PROC: 5A1955Z Respiratory Ventilation, Greater than 96 Consecutive Hours (ICD-10-PCS; principal; 2018-12-26)
PROC: 0BH17EZ Insertion of Endotracheal Airway into Trachea, Via Natural or Artificial Opening (ICD-10-PCS; 2018-12-26)
PROC: 5A09357 Assistance with Respiratory Ventilation, Less than 24 Consecutive Hours, Continuous Positive Airway Pressure (ICD-10-PCS; 2018-12-26)
PROC: 30233N1 Transfusion of Nonautologous Red Blood Cells into Peripheral Vein, Percutaneous Approach (ICD-10-PCS; 2018-12-31)
PROC: 0B113F4 Bypass Trachea to Cutaneous with Tracheostomy Device, Percutaneous Approach (ICD-10-PCS; 2019-01-01)
PROC: 0DH63UZ Insertion of Feeding Device into Stomach, Percutaneous Approach (ICD-10-PCS; 2019-01-02)
PROC: 3E02340 Introduction of Influenza Vaccine into Muscle, Percutaneous Approach (ICD-10-PCS; 2019-01-03)
PROC: 3E0234Z Introduction of Serum, Toxoid and Vaccine into Muscle, Percutaneous Approach (ICD-10-PCS; 2019-01-03)
DX: A41.9 Sepsis, unspecified organism (principal); J96.01 Acute respiratory failure with hypoxia; J15.1 Pneumonia due to Pseudomonas; J44.0 Chronic obstructive pulmonary disease with (acute) lower respiratory infection; F03.90 Unspecified dementia, unspecified severity, without behavioral disturbance, psychotic disturbance, mood disturbance, and anxiety; I11.0 Hypertensive heart disease with heart failure; I25.10 Atherosclerotic heart disease of native coronary artery without angina pectoris; I50.9 Heart failure, unspecified; F17.200 Nicotine dependence, unspecified, uncomplicated; I25.2 Old myocardial infarction; Z23 Encounter for immunization; Z79.899 Other long term (current) drug therapy; Z79.82 Long term (current) use of aspirin
CPT/HCPCS: 31500; 31645; 36415; 36600; 49440; 71045; 74018; 80053; 80202; 81001; 82272; 82803; 82948; 83540; 83550; 83605; 83690; 83735; 84100; 84132; 84134; 84145; 84484; 85018; 85025; 85610; 85730; 86870; 86880; 86885; 86900; 86901; 86902; 86905; 86922; 87040; 87070; 87077; 87081; 87088; 87186; 90732; 93005; 94002; 94003; 94640; 94660; 94760; 96360; 97110; 97161; 97530; 99291; B4087; C1713; C9113; G0378; J0692; J1610; J1956; J2212; J2250; J2704; J2765; J3010; J3370; J3480; J7050; P9016; Q2037; Q4081; Q9963; Q9967